=== PATIENT | male | born 1975 | race Caucasian/White ===

== ENCOUNTER 2020-06-01 14:27 | Inpatient (IN) | payer OTHER, SELFPAY ==
[2020-06-01] VITALS (16 sets, daily range): BP systolic 114–140; BP diastolic 43–86; PULSE 117–138; RESP 19–35; TEMP 36.4–38.1; O2SAT 96–100; BMI 39.5
[2020-06-01 16:02] LABS: Hemoglobin 7.1 g/dl (14.0-18.0); Red Cell Distribution Width 18.9 % (11.0-16.0)
[2020-06-01 16:03] LABS: Hematocrit 25.6 % (42-52); Mean Corpuscular HGB Conc 27.7 g/dl (31.0-36.0); Mean Corpuscular Hemoglobin 16.6 pg (27.0-33.0); NRBC Pct Auto 0.6 /100WBC (0.0-0.2); Platelet Count 218 X10*3/uL (160-400); Red Blood Count 4.28 X10*6/uL (4.60-5.80); White Blood Count 6.3 X10*3/uL (4.8-10.8)
[2020-06-01 16:04] LABS: Mean Corpuscular Volume 59.8 fL (80-98); PLT ABN DIST 1
--- NOTE | 2020-06-01 16:06 | CT_ITS ---
EXAMINATION: CT HEAD WITHOUT CONTRAST CLINICAL INFORMATION: Bilateral ear hematoma. COMPARISON: None. TECHNIQUE: Contiguous axial imaging was performed from the skull base to vertex without intravenous contrast. This CT examination was performed using dose optimization techniques as appropriate, variously including the following: * Automated exposure control * Adjustment of mA and/or kV according to patient size (this includes techniques or standardized protocols for targeted exams where dose is matched to indication/reason for exam; i.e. extremities or head) Use of iterative reconstruction technique DLP: 923 mGy-cm. FINDINGS: There is no evidence of acute intracranial hemorrhage or territorial infarction. No abnormal mass effect or midline shift is seen. Michelle to white matter differentiation is well preserved. No extra-axial fluid collections are identified. No hydrocephalus. No significant volume loss. There is no abnormal attenuation within the brain parenchyma. The osseous structures and soft tissues are normal. The middle ear cavities are well-aerated. The external auditory canals are clear. Mucous retention cyst in the left maxillary sinus. The mastoid air cells and visualized portions of the paranasal sinuses are otherwise well aerated. CT/CT head/brain wo con IMPRESSION: No acute intracranial pathology.
[2020-06-01 16:09] LABS: INTERNATIONAL NORM RATIO 1.6 (0.9-1.1); Prothrombin Time 19.5 SEC (10.8-13.0)
[2020-06-01 16:35] LABS: Alanine Aminotransferase < 6 U/L (0-40); Albumin Level 3.3 g/dL (3.5-5.0); Alkaline Phosphatase 78 U/L (39-117); Anion Gap 12 (12-20); Aspartate Amino Transferase 25 U/L (5-37); Bilirubin Direct 0.8 mg/dL (0.0-0.5); Bilirubin Total 1.3 mg/dL (0.0-1.0); Blood Urea Nitrogen 15 mg/dL (9-16); Calcium 8.1 mg/dL (8.4-10.2); Carbon Dioxide 24 mmol/L (22-29); Chloride 100 mmol/L (96-108); Creatinine Clr Calc Pharmacy 136.5; Estimated Glomerular Filt Rate > 60; Glucose Random 108 mg/dL (60-115); Magnesium 1.9 mg/dL (1.6-2.6); Sodium 132 mmol/L (135-145); Total Protein 7.4 g/dL (6.5-8.0)
[2020-06-01 16:38] LABS: Band Neutrophils Percent 0 % (3-5); Eosinophils Absolute Manual 0.1 X10*3/UL (0.0-0.8); Eosinophils Percent Manual 1 % (0-4); Hypochromasia 2+; Lymphocytes Absolute Manual 0.8 X10*3/uL (0.6-4.8); Lymphocytes Percent Manual 12 % (20-40); Microcytosis 3+; Monocytes Absolute Manual 0.2 X10*3/uL (0.0-1.2); Monocytes Percent Manual 3 % (2-11); Neutrophils Absolute Manual 5.3 X10*3/uL (2.2-7.9); Neutrophils Percent Manual 84 % (45-73); RBC Morphology NOTED; Tear Drop Cells 2+
[2020-06-01 16:39] LABS: Ovalocytes 1+; Platelet Estimate NORMAL (NORMAL); Platelet Morphology Comment NOTED; Polychromasia 1+
[2020-06-01 16:40] LABS: Large Platelet PRESENT
[2020-06-01 16:45] LABS: Influenza A PCR NEGATIVE (Negative); Influenza B PCR NEGATIVE (Negative); Resp Syncy Virus RNA Qual PCR NEGATIVE (Negative); SARS COV2 PCR INHOUSE NEGATIVE (Negative)
[2020-06-01 17:01] LABS: Lactic Acid 1.7 mmol/L (0.5-2.0)
[2020-06-01 17:05] LABS: Iron 8 mcg/dL (45-160); Lactate Dehydrogenase 264 U/L (118-273); Percent Iron Saturation 3 % (15-50); Total Iron Binding Capacity 262 mcg/dL (228-428); Unsaturated Iron Binding 254 ug/dL
--- NOTE | 2020-06-01 17:46 | PC.NURSE ---
FIRST UNIT OF BLOOD HUNG. LUNGS CLEAR, SLIGHTLY DIM. PT NAPPING BUT EASILY AROUSED. SLEEP APNEA NOTED.
--- NOTE | 2020-06-01 17:51 | ED_ITS ---
HPI - Ear Problem General Chief complaint: Ear Problems <EROS Salazar Last Filed: 06/01/20 19:40> Stated complaint: ear pain <EROS Salazar Last Filed: 06/01/20 19:40> Time Seen by Provider: 06/01/20 15:36 <EROS Salazar Last Filed: 06/01/20 19:40> Source: patient <EROS Salazar Last Filed: 06/01/20 19:40> Mode of arrival: ambulatory <EROS Salazar Last Filed: 06/01/20 19:40> Limitations: no limitations <EROS Salazar Last Filed: 06/01/20 19:40> History of Present Illness HPI Narrative: 44yoM c PMHx of allergies, HTN who is noncompliant with hypertensive medication has not seen a PCP in over a year presenting to the ED with compl aints of purple coloration to bilateral ears after he was blowing his nose to clear his sinuses 2 days ago. He denies any trauma, head injury, fevers, hearing loss or any other symptoms complaints or concerns at this time. Denies history of hypercoagulation disorder. Denies being and cold temperature with possible frostbite. Patient denies being on any blood thinners. <EROS Salazar Last Filed: 06/01/20 19:40> Related Data Home medications: Home Medications Medication Instructions Recorded Confirmed No Known Home Meds 06/01/20 06/01/20 <EROS Salazar Last Filed: 06/01/20 19:40> Allergies/adverse reactions: Allergies Allergy/AdvReac Type Severity Reaction Status Date / Time No Known Allergies Allergy Verified 06/01/20 15:37 <EROS Salazar Last Filed: 06/01/20 19:40> Review of Systems Review of Systems: Constitutional : No Weight loss, No Fever, No Chills, No Night Sweats, No Fatigue, No Malaise ENT/Mouth : + ear discoloration although patient denies pain, No Hearing loss, No Ear Pain, No Nasal Congestion, No Sinus Pain, No Hoarseness, No sore throat, No Rhinorrhea, No Swallowing Difficulty Eyes: No Eye Pain, No Swelling, No Redness, No Foreign Body, No Discharge, No Vision Changes Cardiovascular : No Chest Pain, No SOB, No Dyspnea on Exertion, No Orthopnea, No Edema, No Palpitations Respiratory : No Cough, No Sputum, No Wheezing, No Smoke Exposure, No Dyspnea Gastrointestinal : No Nausea, No Vomiting, No Diarrhea, No Constipation, No abdominal Pain, No Hematochezia, No Melena Genitourinary : no irregular bleeding, No Dysuria, No Urinary Frequency, No Hematuria, No Urinary Incontinence, No Urgency, No Flank Pain, No Urinary Flow Changes, No Hesitancy Musculoskeletal : No joint pain, No Myalgias, No Joint Swelling Skin : No Skin Lesions, No rash Neuro : No Weakness, No Numbness, No Paresthesias, No Loss of Consciousness, No Dizziness, No Headache Psych : No Anxiety/Panic, No Depression, No SI/HI/AH/VH, No Social Issues, Heme/Lymph: No Bruising, No Bleeding,No Lymphadenopathy Endocrine : No Polyuria, No Polydipsia, No Temperature Intolerance <EROS Salazar - Last Filed: 06/01/20 19:40> Yes all other systems are reviewed and are negative <EROS Salazar - Last Filed: 06/01/20 19:40> [facility] Past Medical History Attestation statement: The following information was validated with the patient. <EROS Salazar - Last Filed: 06/01/20 19:40> Medical History: Medical History Allergies HTN (hypertension) <EROS Salazar - Last Filed: 06/01/20 19:40> Social History Social History: Social History Advance Directives: No Advance Directives Information Provided: No <EROS Salazar - Last Filed: 06/01/20 19:40> Physical Exam Vital Signs: Vital Signs: Last Vital Signs Temp 99.8 F 06/01/20 21:05 Pulse 137 H 06/01/20 22:53 Resp 34 H 06/01/20 23:15 BP 137/69 06/01/20 22:53 Pulse Ox 100 06/01/20 22:53 Body Mass Index 39.5 vital signs have been reviewed as normal and appeared to be correct. Blood pressure normal. Heart rate tachycardic. Respiration rate tachypneic. Temperature normal. Oxygen saturation normal. <EROS Salazar - Last Filed: 06/01/20 19:40> Vital Signs: Last Vital Signs Temp 99.8 F 06/01/20 21:05 Pulse 137 H 06/01/20 22:53 Resp 34 H 06/01/20 23:15 BP 137/69 06/01/20 22:53 Pulse Ox 100 06/01/20 22:53 Body Mass Index 39.5 <Triston Miller MD - Last Filed: 06/01/20 23:32> Appearance: Alert. Oriented X3. No acute distress. Head: Normal external exam. Normocephalic. Atraumatic. Eyes: PERRLA. EOMI. Patient noted to have a small conjunctival hemorrhage to the left eye. Otherwise the right eye conjunctiva and sclera are normal. Sclera to left eye normal. Eyelids normal. ENT: Bilateral lateral aspect of cartilage of ears with purplish color with blisters noted. No purulent drainage. Patient does not have pain on palpation. The ear does not feel hot to touch or cold to touch. Otherwise the EAC is normal. TM's Normal. Pharynx normal. Uvula midline. Moist mucous membranes. No trismus noted. No drooling noted. No muffled voice noted. Neck: Normal inspection. Neck supple. FROM. No adenopathy. No meningeal signs. CVS: Normal heart rate and rhythm. Heart sound normal. No murmurs noted. Pulses normal throughout. Respiratory: No respiratory distress. Painless inspiration. Breath sounds normal. No wheezes/rales/rhonchi noted. Chest nontender. No accessory muscle usage noted or decreased air movement noted. Back: Full range of motion noted. Skin: Skin warm and dry. Normal skin color. Normal skin turgor. No lacerations noted. Extremities: Bilateral toes noted to have purpura. + lower extremity edema. No calf tenderness noted. Extremities exhibit normal range of motion. Extremities nontender. Neuro: Oriented X 3. No motor deficit. No sensory deficit. Reflexes normal. <EROS Salazar - Last Filed: 06/01/20 19:40> Course Course Course Narrative: 15:37pm - 44yoM c PMHx of allergies, HTN who is noncompliant with hypertensive medication has not seen a PCP in over a year presenting to the ED with complaints of purple coloration to bilateral ears after he was blowing his nose to clear his sinuses 2 days ago. - on exam patient has purple list discoloration to bilateral cartilage of ears with blisters. - Plan: Labs, CT scan of brain, blood cultures, lactic acid provide IVFs then re-evaluate <EROS Salazar - Last Filed: 06/01/20 19:40> Reevaluation(s) Reevaluation #1: 16:12pm - patient anemic hemoglobin at 7.1 hematocrit 25.6 MC vis 59.8. - PT/INR 19.5/1.6. - sodium 132. - all other labs within normal limits. - COVID/RSV/flu negative. - CT scan of brain within normal limits no acute processes noted. - therefore I recommended 2 units of red blood cells to the patient and added iron studies - patient signed consent for 2 packs of red blood cells. - I explained to the patient that we should do a stool occult to evaluate if he is bleeding rectally although patient adamantly refused this. - I offered the patient admission for anemia of unknown cause and purplish discoloration to bilateral ear cartilage although patient is adamantly refusing and reporting that he will be leaving after the 2 units of red blood cells. <EROS Salazar - Last Filed: 06/01/20 19:40> Time: 16:12 <EROS Salazar - Last Filed: 06/01/20 19:40> Reevaluation #2: - due to the patient tachycardia and tachypnea will give a dose of IV antibiotics of Rocephin - plan is to discharge patient against medical advice with antibiotics and referral to ENT although we explained to the patient that he can have necrosis of his ear cartilages and he understands and still wants to leave against medi luz elena advice. Anwer at bedside for this conversation. <EROS Salazar - Last Filed: 06/01/20 19:40> Time: 18:35 <EROS Salazar - Last Filed: 06/01/20 19:40> Reevaluation #3: I examined the patient's feet and patient is noted to have purpura on bilateral feet/toes therefore I had another lengthy conversation with the patient about necrosis of his ear cartilages and convince him to stay in the emergency department for further evaluation and treatment and admission for further evaluation and treatment. Consulted with Dr. Smith the vascular surgeon and Dr. Villalobos the heme oncologist will re-evaluate. Sign out to TIFFANIE Liao at this time. <EROS Salazar - Last Filed: 06/01/20 19:40> Time: 19:02 <EROS Salazar - Last Filed: 06/01/20 19:40> Additional Reevaluation(s): 19:25pm - I consulted with Dr. Smith and he recommended a lower extremity ultrasound arterial therefore placed at this time. - I spoke to the hospitalist Umm Daniels NP who recommended obtain a CTA of chest for possible PE and a CT of abdomen and pelvis with IV contrast to evaluate the patient's spleen. Patient understands agrees with this plan. - Pt reports he does not do any street drugs which include Heroin, cocaine or any other street drugs although reports he does sell cocaine . Denies ETOH usage. - Sign Out to TIFFANIE Liao pending additional abs and imaging and admission <EROS Salazar - Last Filed: 06/01/20 19:40> MDM - Ear MDM Narrative Medical decision making narrative: Patient with history of sleep apnea not using the CPAP machine poor compliance for follow-up and treatment came here after blowing his nose with hematoma on the bilateral ear pinna. Urine tox showed cocaine use which patient denied. Workup showed patient is severely anemic with hemoglobin of 7 0.1 MCV of 59.8 platelet count 218 suggestive of severe iron deficiency anemia hematoma on the ear pinna happened 2 days ago needle aspiration drained only small amount of blood. Workup also showed splenomegaly and lymph nodes in the abdomen. Case discussed with painter decorator Dr. Villalobos advise further workup patient received 2 units of blood transfusion in the ER and iron infusion placed on BiPAP in the ER ABG showed normal pCO2 level metabolic alkalosis will admit patient to hospitalist service <Triston Miller MD - Last Filed: 06/01/20 23:32> Medical Records Attestation: I reviewed the patient's medical records. <EROS Salazar - Last Filed: 06/01/20 19:40> Lab Data Attestation: I reviewed the patient's lab results. <EROS Salazar - Last Filed: 06/01/20 19:40> Result diagrams: : 06/01/20 15:48 06/01/20 15:49 <EROS Salazar - Last Filed: 06/01/20 19:40> Labs: Lab Results 06/01/20 06/01/20 06/01/20 Range/Units 15:48 15:48 15:48 WBC 6.3 (4.8-10.8) X10*3/uL RBC 4.28 L (4.60-5.80) X10*6/uL Hgb 7.1 L (14.0-18.0) g/dl Hct 25.6 L (42-52) % MCV 59.8 L (80-98) fL MCH 16.6 L (27.0-33.0) pg MCHC 27.7 L (31.0-36.0) g/dl RDW 18.9 H (11.0-16.0) % Plt Count 218 (160-400) X10*3/uL MPV Not Reportable Immature Gran % (Auto) Cancelled Neut % (Auto) Cancelled Lymph % (Auto) Cancelled [place] % (Auto) Cancelled Eos % (Auto) Cancelled Baso % (Auto) Cancelled Lymph # (Auto) Cancelled [place] # (Auto) Cancelled Eos # (Auto) Cancelled Baso # (Auto) Cancelled Abs Immat Gran (auto) Cancelled Absolute Neuts (auto) Cancelled Absolute Nucleated RBC 0.040 H (0.0-0.012) X10*3/uL Nucleated RBC % (auto) 0.6 H (0.0-0.2) /100WBC Neutrophils % (Manual) 84 H (45-73) % Band Neutrophils % 0 L (3-5) % Lymphocytes % (Manual) 12 L (20-40) % Monocytes % (Manual) 3 (2-11) % Eosinophils % (Manual) 1 (0-4) % Abs Neuts (Manual) 5.3 (2.2-7.9) X10*3/uL Lymphocytes # (Manual) 0.8 (0.6-4.8) X10*3/uL Monocytes # (Manual) 0.2 (0.0-1.2) X10*3/uL Eosinophils # (Manual) 0.1 (0.0-0.8) X10*3/UL Platelet Estimate NORMAL (NORMAL) Large Platelets PRESENT Plt Morphology Comment NOTED RBC Morphology NOTED Polychromasia 1+ Hypochromasia 2+ Microcytosis 3+ Tear Drop Cells 2+ Ovalocytes 1+ Absolute Retic (0.026-0.095) X10*6/uL Percent Retic (0.5-1.8) % Immature Retic Fraction (2.3-13.4) % Retic Hgb Equivalent (30.0-35.0) pg Hold Purple Top SEE NOTE PT 19.5 H (10.8-13.0) SEC INR 1.6 H (0.9-1.1) APTT (24.1-38.0) SEC Fibrinogen (259-690) MG/DL D-Dimer NG/ML ABG pH (7.35-7.45) ABG pCO2 (32-45) mmHg ABG pO2 (83-108) mmHg ABG HCO3 (22-26) mmol/L ABG O2 Saturation % ABG Base Excess Oxygen Given Sodium (135-145) mmol/L Potassium (3.3-5.1) mmol/l Chloride (96-108) mmol/L Carbon Dioxide (22-29) mmol/L Anion Gap (12-20) BUN (9-16) mg/dL Creatinine (0.5-1.4) mg/dL Estim Creat Clear Calc Estimated GFR Random Glucose (60-115) mg/dL Lactic Acid (0.5-2.0) mmol/L Calcium (8.4-10.2) mg/dL Magnesium (1.6-2.6) mg/dL Iron (45-160) mcg/dL TIBC (228-428) mcg/dL % Saturation (15-50) % Unsat Iron Binding ug/dL Total Bilirubin (0.0-1.0) mg/dL Direct Bilirubin (0.0-0.5) mg/dL AST (5-37) U/L ALT (0-40) U/L Alkaline Phosphatase (39-117) U/L Lactate Dehydrogenase (118-273) U/L Troponin I High Sens (<3.5-35.0) ng/L B-Natriuretic Peptide (<100) pg/mL Total Protein (6.5-8.0) g/dL Albumin (3.5-5.0) g/dL Urine Color Urine Appearance Urine pH (5.0-8.0) Ur Specific Golden (1.005-1.025) Urine Protein (NEG-TRACE) MG/DL Urine Glucose (UA) (NEG) MG/DL Urine Ketones (NEG) MG/DL Urine Blood (NEG) Urine Nitrite (NEG) Ur Leukocyte Esterase (NEG) Urine RBC (0) /HPF Urine WBC (0-4) /HPF Ur Squamous Epith Cells /LPF Urine Bacteria /LPF Urine Opiates Screen (Not Detect) Ur Barbiturates Screen (Not Detect) Ur Phencyclidine Scrn (Not Detect) Ur Amphetamines Screen (Not Detect) U Benzodiazepines Scrn (Not Detect) Urine Cocaine Screen (Not Detect) U Marijuana (THC) Screen (Not Detect) Ethyl Alcohol mg/dL Coronavirus (PCR) (Negative) Influenza Type A (PCR) (Negative) Influenza Type B (PCR) (Negative) RSV RNA Qual (PCR) (Negative) Blood Type Antibody Screen Crossmatch 06/01/20 06/01/20 06/01/20 Range/Units 15:49 15:50 16:24 WBC (4.8-10.8) X10*3/uL RBC (4.60-5.80) X10*6/uL Hgb (14.0-18.0) g/dl Hct (42-52) % MCV (80-98) fL MCH (27.0-33.0) pg MCHC (31.0-36.0) g/dl RDW (11.0-16.0) % Plt Count (160-400) X10*3/uL MPV Immature Gran % (Auto) Neut % (Auto) Lymph % (Auto) [place] % (Auto) Eos % (Auto) Baso % (Auto) Lymph # (Auto) [place] # (Auto) Eos # (Auto) Baso # (Auto) Abs Immat Gran (auto) Absolute Neuts (auto) Absolute Nucleated RBC (0.0-0.012) X10*3/uL Nucleated RBC % (auto) (0.0-0.2) /100WBC Neutrophils % (Manual) (45-73) % Band Neutrophils % (3-5) % Lymphocytes % (Manual) (20-40) % Monocytes % (Manual) (2-11) % Eosinophils % (Manual) (0-4) % Abs Neuts (Manual) (2.2-7.9) X10*3/uL Lymphocytes # (Manual) (0.6-4.8) X10*3/uL Monocytes # (Manual) (0.0-1.2) X10*3/uL Eosinophils # (Manual) (0.0-0.8) X10*3/UL Platelet Estimate (NORMAL) Large Platelets Plt Morphology Comment RBC Morphology Polychromasia Hypochromasia Microcytosis Tear Drop Cells Ovalocytes Absolute Retic (0.026-0.095) X10*6/uL Percent Retic (0.5-1.8) % Immature Retic Fraction (2.3-13.4) % Retic Hgb Equivalent (30.0-35.0) pg Hold Purple Top PT (10.8-13.0) SEC INR (0.9-1.1) APTT (24.1-38.0) SEC Fibrinogen (259-690) MG/DL D-Dimer NG/ML ABG pH (7.35-7.45) ABG pCO2 (32-45) mmHg ABG pO2 (83-108) mmHg ABG HCO3 (22-26) mmol/L ABG O2 Saturation % ABG Base Excess Oxygen Given Sodium 132 L (135-145) mmol/L Potassium 4.0 (3.3-5.1) mmol/l Chloride 100 (96-108) mmol/L Carbon Dioxide 24 (22-29) mmol/L Anion Gap 12 (12-20) BUN 15 (9-16) mg/dL Creatinine 1.01 (0.5-1.4) mg/dL Estim Creat Clear Calc 136.5 Estimated GFR > 60 Random Glucose 108 (60-115) mg/dL Lactic Acid (0.5-2.0) mmol/L Calcium 8.1 L (8.4-10.2) mg/dL Magnesium 1.9 (1.6-2.6) mg/dL Iron (45-160) mcg/dL TIBC (228-428) mcg/dL % Saturation (15-50) % Unsat Iron Binding ug/dL Total Bilirubin 1.3 H (0.0-1.0) mg/dL Direct Bilirubin 0.8 H (0.0-0.5) mg/dL AST 25 (5-37) U/L ALT < 6 (0-40) U/L Alkaline Phosphatase 78 (39-117) U/L Lactate Dehydrogenase (118-273) U/L Troponin I High Sens (<3.5-35.0) ng/L B-Natriuretic Peptide (<100) pg/mL Total Protein 7.4 (6.5-8.0) g/dL Albumin 3.3 L (3.5-5.0) g/dL Urine Color Urine Appearance Urine pH (5.0-8.0) Ur Specific Golden (1.005-1.025) Urine Protein (NEG-TRACE) MG/DL Urine Glucose (UA) (NEG) MG/DL Urine Ketones (NEG) MG/DL Urine Blood (NEG) Urine Nitrite (NEG) Ur Leukocyte Esterase (NEG) Urine RBC (0) /HPF Urine WBC (0-4) /HPF Ur Squamous Epith Cells /LPF Urine Bacteria /LPF Urine Opiates Screen (Not Detect) Ur Barbiturates Screen (Not Detect) Ur Phencyclidine Scrn (Not Detect) Ur Amphetamines Screen (Not Detect) U Benzodiazepines Scrn (Not Detect) Urine Cocaine Screen (Not Detect) U Marijuana (THC) Screen (Not Detect) Ethyl Alcohol mg/dL Coronavirus (PCR) NEGATIVE (Negative) Influenza Type A (PCR) NEGATIVE (Negative) Influenza Type B (PCR) NEGATIVE (Negative) RSV RNA Qual (PCR) NEGATIVE (Negative) Blood Type O Negative Antibody Screen NEGATIVE Crossmatch See Detail 06/01/20 06/01/20 06/01/20 Range/Units 16:25 16:26 19:55 WBC (4.8-10.8) X10*3/uL RBC (4.60-5.80) X10*6/uL Hgb (14.0-18.0) g/dl Hct (42-52) % MCV (80-98) fL MCH (27.0-33.0) pg MCHC (31.0-36.0) g/dl RDW (11.0-16.0) % Plt Count (160-400) X10*3/uL MPV Immature Gran % (Auto) Neut % (Auto) Lymph % (Auto) [place] % (Auto) Eos % (Auto) Baso % (Auto) Lymph # (Auto) [place] # (Auto) Eos # (Auto) Baso # (Auto) Abs Immat Gran (auto) Absolute Neuts (auto) Absolute Nucleated RBC (0.0-0.012) X10*3/uL Nucleated RBC % (auto) (0.0-0.2) /100WBC Neutrophils % (Manual) (45-73) % Band Neutrophils % (3-5) % Lymphocytes % (Manual) (20-40) % Monocytes % (Manual) (2-11) % Eosinophils % (Manual) (0-4) % Abs Neuts (Manual) (2.2-7.9) X10*3/uL Lymphocytes # (Manual) (0.6-4.8) X10*3/uL Monocytes # (Manual) (0.0-1.2) X10*3/uL Eosinophils # (Manual) (0.0-0.8) X10*3/UL Platelet Estimate (NORMAL) Large Platelets Plt Morphology Comment RBC Morphology Polychromasia Hypochromasia Microcytosis Tear Drop Cells Ovalocytes Absolute Retic (0.026-0.095) X10*6/uL Percent Retic (0.5-1.8) % Immature Retic Fraction (2.3-13.4) % Retic Hgb Equivalent (30.0-35.0) pg Hold Purple Top PT (10.8-13.0) SEC INR (0.9-1.1) APTT (24.1-38.0) SEC Fibrinogen (259-690) MG/DL D-Dimer NG/ML ABG pH (7.35-7.45) ABG pCO2 (32-45) mmHg ABG pO2 (83-108) mmHg ABG HCO3 (22-26) mmol/L ABG O2 Saturation % ABG Base Excess Oxygen Given Sodium (135-145) mmol/L Potassium (3.3-5.1) mmol/l Chloride (96-108) mmol/L Carbon Dioxide (22-29) mmol/L Anion Gap (12-20) BUN (9-16) mg/dL Creatinine (0.5-1.4) mg/dL Estim Creat Clear Calc Estimated GFR Random Glucose (60-115) mg/dL Lactic Acid 1.7 (0.5-2.0) mmol/L Calcium (8.4-10.2) mg/dL Magnesium (1.6-2.6) mg/dL Iron 8 L (45-160) mcg/dL TIBC 262 (228-428) mcg/dL % Saturation 3 L (15-50) % Unsat Iron Binding 254 ug/dL Total Bilirubin (0.0-1.0) mg/dL Direct Bilirubin (0.0-0.5) mg/dL AST (5-37) U/L ALT (0-40) U/L Alkaline Phosphatase (39-117) U/L Lactate Dehydrogenase 264 (118-273) U/L Troponin I High Sens (<3.5-35.0) ng/L B-Natriuretic Peptide (<100) pg/mL Total Protein (6.5-8.0) g/dL Albumin (3.5-5.0) g/dL Urine Color YELLOW Urine Appearance CLEAR Urine pH 6.0 (5.0-8.0) Ur Specific [place] 1.020 (1.005-1.025) Urine Protein TRACE (NEG-TRACE) MG/DL Urine Glucose (UA) NEG (NEG) MG/DL Urine Ketones NEG (NEG) MG/DL Urine Blood 1+ H (NEG) Urine Nitrite NEG (NEG) Ur Leukocyte Esterase NEG (NEG) Urine RBC 5-9 H (0) /HPF Urine WBC 0 (0-4) /HPF Ur Squamous Epith Cells 1+ /LPF Urine Bacteria NONE /LPF Urine Opiates Screen (Not Detect) Ur Barbiturates Screen (Not Detect) Ur Phencyclidine Scrn (Not Detect) Ur Amphetamines Screen (Not Detect) U Benzodiazepines Scrn (Not Detect) Urine Cocaine Screen (Not Detect) U Marijuana (THC) Screen (Not Detect) Ethyl Alcohol mg/dL Coronavirus (PCR) (Negative) Influenza Type A (PCR) (Negative) Influenza Type B (PCR) (Negative) RSV RNA Qual (PCR) (Negative) Blood Type Antibody Screen Crossmatch 06/01/20 06/01/20 06/01/20 Range/Units 19:55 20:23 20:23 WBC (4.8-10.8) X10*3/uL RBC (4.60-5.80) X10*6/uL Hgb (14.0-18.0) g/dl Hct (42-52) % MCV (80-98) fL MCH (27.0-33.0) pg MCHC (31.0-36.0) g/dl RDW (11.0-16.0) % Plt Count (160-400) X10*3/uL MPV Immature Gran % (Auto) Neut % (Auto) Lymph % (Auto) [place] % (Auto) Eos % (Auto) Baso % (Auto) Lymph # (Auto) [place] # (Auto) Eos # (Auto) Baso # (Auto) Abs Immat Gran (auto) Absolute Neuts (auto) Absolute Nucleated RBC (0.0-0.012) X10*3/uL Nucleated RBC % (auto) (0.0-0.2) /100WBC Neutrophils % (Manual) (45-73) % Band Neutrophils % (3-5) % Lymphocytes % (Manual) (20-40) % Monocytes % (Manual) (2-11) % Eosinophils % (Manual) (0-4) % Abs Neuts (Manual) (2.2-7.9) X10*3/uL Lymphocytes # (Manual) (0.6-4.8) X10*3/uL Monocytes # (Manual) (0.0-1.2) X10*3/uL Eosinophils # (Manual) (0.0-0.8) X10*3/UL Platelet Estimate (NORMAL) Large Platelets Plt Morphology Comment RBC Morphology Polychromasia Hypochromasia Microcytosis Tear Drop Cells Ovalocytes Absolute Retic (0.026-0.095) X10*6/uL Percent Retic (0.5-1.8) % Immature Retic Fraction (2.3-13.4) % Retic Hgb Equivalent (30.0-35.0) pg Hold Purple Top PT (10.8-13.0) SEC INR (0.9-1.1) APTT 61.1 H* (24.1-38.0) SEC Fibrinogen > 700 H (259-690) MG/DL D-Dimer 3841 NG/ML ABG pH (7.35-7.45) ABG pCO2 (32-45) mmHg ABG pO2 (83-108) mmHg ABG HCO3 (22-26) mmol/L ABG O2 Saturation % ABG Base Excess Oxygen Given Sodium (135-145) mmol/L Potassium (3.3-5.1) mmol/l Chloride (96-108) mmol/L Carbon Dioxide (22-29) mmol/L Anion Gap (12-20) BUN (9-16) mg/dL Creatinine (0.5-1.4) mg/dL Estim Creat Clear Calc Estimated GFR Random Glucose (60-115) mg/dL Lactic Acid (0.5-2.0) mmol/L Calcium (8.4-10.2) mg/dL Magnesium (1.6-2.6) mg/dL Iron (45-160) mcg/dL TIBC (228-428) mcg/dL % Saturation (15-50) % Unsat Iron Binding ug/dL Total Bilirubin (0.0-1.0) mg/dL Direct Bilirubin (0.0-0.5) mg/dL AST (5-37) U/L ALT (0-40) U/L Alkaline Phosphatase (39-117) U/L Lactate Dehydrogenase (118-273) U/L Troponin I High Sens (<3.5-35.0) ng/L B-Natriuretic Peptide 56 (<100) pg/mL Total Protein (6.5-8.0) g/dL Albumin (3.5-5.0) g/dL Urine Color Urine Appearance Urine pH (5.0-8.0) Ur Specific [place] (1.005-1.025) Urine Protein (NEG-TRACE) MG/DL Urine Glucose (UA) (NEG) MG/DL Urine Ketones (NEG) MG/DL Urine Blood (NEG) Urine Nitrite (NEG) Ur Leukocyte Esterase (NEG) Urine RBC (0) /HPF Urine WBC (0-4) /HPF Ur Squamous Epith Cells /LPF Urine Bacteria /LPF Urine Opiates Screen Not Detected (Not Detect) Ur Barbiturates Screen Not Detected (Not Detect) Ur Phencyclidine Scrn Not Detected (Not Detect) Ur Amphetamines Screen Not Detected (Not Detect) U Benzodiazepines Scrn Not Detected (Not Detect) Urine Cocaine Screen POSITIVE H (Not Detect) U Marijuana (THC) Screen Not Detected (Not Detect) Ethyl Alcohol mg/dL Coronavirus (PCR) (Negative) Influenza Type A (PCR) (Negative) Influenza Type B (PCR) (Negative) RSV RNA Qual (PCR) (Negative) Blood Type Antibody Screen Crossmatch 06/01/20 06/01/20 06/01/20 Range/Units 20:23 20:23 20:23 WBC (4.8-10.8) X10*3/uL RBC (4.60-5.80) X10*6/uL Hgb (14.0-18.0) g/dl Hct (42-52) % MCV (80-98) fL MCH (27.0-33.0) pg MCHC (31.0-36.0) g/dl RDW (11.0-16.0) % Plt Count (160-400) X10*3/uL MPV Immature Gran % (Auto) Neut % (Auto) Lymph % (Auto) [place] % (Auto) Eos % (Auto) Baso % (Auto) Lymph # (Auto) [place] # (Auto) Eos # (Auto) Baso # (Auto) Abs Immat Gran (auto) Absolute Neuts (auto) Absolute Nucleated RBC (0.0-0.012) X10*3/uL Nucleated RBC % (auto) (0.0-0.2) /100WBC Neutrophils % (Manual) (45-73) % Band Neutrophils % (3-5) % Lymphocytes % (Manual) (20-40) % Monocytes % (Manual) (2-11) % Eosinophils % (Manual) (0-4) % Abs Neuts (Manual) (2.2-7.9) X10*3/uL Lymphocytes # (Manual) (0.6-4.8) X10*3/uL Monocytes # (Manual) (0.0-1.2) X10*3/uL Eosinophils # (Manual) (0.0-0.8) X10*3/UL Platelet Estimate (NORMAL) Large Platelets Plt Morphology Comment RBC Morphology Polychromasia Hypochromasia Microcytosis Tear Drop Cells Ovalocytes Absolute Retic 0.043 (0.026-0.095) X10*6/uL Percent Retic 0.9 (0.5-1.8) % Immature Retic Fraction 17.2 H (2.3-13.4) % Retic Hgb Equivalent 14.7 L (30.0-35.0) pg Hold Purple Top PT (10.8-13.0) SEC INR (0.9-1.1) APTT (24.1-38.0) SEC Fibrinogen (259-690) MG/DL D-Dimer NG/ML ABG pH (7.35-7.45) ABG pCO2 (32-45) mmHg ABG pO2 (83-108) mmHg ABG HCO3 (22-26) mmol/L ABG O2 Saturation % ABG Base Excess Oxygen Given Sodium (135-145) mmol/L Potassium (3.3-5.1) mmol/l Chloride (96-108) mmol/L Carbon Dioxide (22-29) mmol/L Anion Gap (12-20) BUN (9-16) mg/dL Creatinine (0.5-1.4) mg/dL Estim Creat Clear Calc Estimated GFR Random Glucose (60-115) mg/dL Lactic Acid (0.5-2.0) mmol/L Calcium (8.4-10.2) mg/dL Magnesium (1.6-2.6) mg/dL Iron (45-160) mcg/dL TIBC (228-428) mcg/dL % Saturation (15-50) % Unsat Iron Binding ug/dL Total Bilirubin (0.0-1.0) mg/dL Direct Bilirubin (0.0-0.5) mg/dL AST (5-37) U/L ALT (0-40) U/L Alkaline Phosphatase (39-117) U/L Lactate Dehydrogenase (118-273) U/L Troponin I High Sens 7.4 (<3.5-35.0) ng/L B-Natriuretic Peptide (<100) pg/mL Total Protein (6.5-8.0) g/dL Albumin (3.5-5.0) g/dL Urine Color Urine Appearance Urine pH (5.0-8.0) Ur Specific [place] (1.005-1.025) Urine Protein (NEG-TRACE) MG/DL Urine Glucose (UA) (NEG) MG/DL Urine Ketones (NEG) MG/DL Urine Blood (NEG) Urine Nitrite (NEG) Ur Leukocyte Esterase (NEG) Urine RBC (0) /HPF Urine WBC (0-4) /HPF Ur Squamous Epith Cells /LPF Urine Bacteria /LPF Urine Opiates Screen (Not Detect) Ur Barbiturates Screen (Not Detect) Ur Phencyclidine Scrn (Not Detect) Ur Amphetamines Screen (Not Detect) U Benzodiazepines Scrn (Not Detect) Urine Cocaine Screen (Not Detect) U Marijuana (THC) Screen (Not Detect) Ethyl Alcohol < 10 mg/dL Coronavirus (PCR) (Negative) Influenza Type A (PCR) (Negative) Influenza Type B (PCR) (Negative) RSV RNA Qual (PCR) (Negative) Blood Type Antibody Screen Crossmatch 06/01/20 Range/Units 23:11 WBC (4.8-10.8) X10*3/uL RBC (4.60-5.80) X10*6/uL Hgb (14.0-18.0) g/dl Hct (42-52) % MCV (80-98) fL MCH (27.0-33.0) pg MCHC (31.0-36.0) g/dl RDW (11.0-16.0) % Plt Count (160-400) X10*3/uL MPV Immature Gran % (Auto) Neut % (Auto) Lymph % (Auto) [place] % (Auto) Eos % (Auto) Baso % (Auto) Lymph # (Auto) [place] # (Auto) Eos # (Auto) Baso # (Auto) Abs Immat Gran (auto) Absolute Neuts (auto) Absolute Nucleated RBC (0.0-0.012) X10*3/uL Nucleated RBC % (auto) (0.0-0.2) /100WBC Neutrophils % (Manual) (45-73) % Band Neutrophils % (3-5) % Lymphocytes % (Manual) (20-40) % Monocytes % (Manual) (2-11) % Eosinophils % (Manual) (0-4) % Abs Neuts (Manual) (2.2-7.9) X10*3/uL Lymphocytes # (Manual) (0.6-4.8) X10*3/uL Monocytes # (Manual) (0.0-1.2) X10*3/uL Eosinophils # (Manual) (0.0-0.8) X10*3/UL Platelet Estimate (NORMAL) Large Platelets Plt Morphology Comment RBC Morphology Polychromasia Hypochromasia Microcytosis Tear Drop Cells Ovalocytes Absolute Retic (0.026-0.095) X10*6/uL Percent Retic (0.5-1.8) % Immature Retic Fraction (2.3-13.4) % Retic Hgb Equivalent (30.0-35.0) pg Hold Purple Top PT (10.8-13.0) SEC INR (0.9-1.1) APTT (24.1-38.0) SEC Fibrinogen (259-690) MG/DL D-Dimer NG/ML ABG pH 7.46 H (7.35-7.45) ABG pCO2 34 (32-45) mmHg ABG pO2 144 H (83-108) mmHg ABG HCO3 24 (22-26) mmol/L ABG O2 Saturation 99.0 % ABG Base Excess 1.3 Oxygen Given 30% Sodium (135-145) mmol/L Potassium (3.3-5.1) mmol/l Chloride (96-108) mmol/L Carbon Dioxide (22-29) mmol/L Anion Gap (12-20) BUN (9-16) mg/dL Creatinine (0.5-1.4) mg/dL Estim Creat Clear Calc Estimated GFR Random Glucose (60-115) mg/dL Lactic Acid (0.5-2.0) mmol/L Calcium (8.4-10.2) mg/dL Magnesium (1.6-2.6) mg/dL Iron (45-160) mcg/dL TIBC (228-428) mcg/dL % Saturation (15-50) % Unsat Iron Binding ug/dL Total Bilirubin (0.0-1.0) mg/dL Direct Bilirubin (0.0-0.5) mg/dL AST (5-37) U/L ALT (0-40) U/L Alkaline Phosphatase (39-117) U/L Lactate Dehydrogenase (118-273) U/L Troponin I High Sens (<3.5-35.0) ng/L B-Natriuretic Peptide (<100) pg/mL Total Protein (6.5-8.0) g/dL Albumin (3.5-5.0) g/dL Urine Color Urine Appearance Urine pH (5.0-8.0) Ur Specific [place] (1.005-1.025) Urine Protein (NEG-TRACE) MG/DL Urine Glucose (UA) (NEG) MG/DL Urine Ketones (NEG) MG/DL Urine Blood (NEG) Urine Nitrite (NEG) Ur Leukocyte Esterase (NEG) Urine RBC (0) /HPF Urine WBC (0-4) /HPF Ur Squamous Epith Cells /LPF Urine Bacteria /LPF Urine Opiates Screen (Not Detect) Ur Barbiturates Screen (Not Detect) Ur Phencyclidine Scrn (Not Detect) Ur Amphetamines Screen (Not Detect) U Benzodiazepines Scrn (Not Detect) Urine Cocaine Screen (Not Detect) U Marijuana (THC) Screen (Not Detect) Ethyl Alcohol mg/dL Coronavirus (PCR) (Negative) Influenza Type A (PCR) (Negative) Influenza Type B (PCR) (Negative) RSV RNA Qual (PCR) (Negative) Blood Type Antibody Screen Crossmatch <EROS Salazar - Last Filed: 06/01/20 19:40> Lab Results 06/01/20 06/01/20 06/01/20 Range/Units 15:48 15:48 15:48 WBC 6.3 (4.8-10.8) X10*3/uL RBC 4.28 L (4.60-5.80) X10*6/uL Hgb 7.1 L (14.0-18.0) g/dl Hct 25.6 L (42-52) % MCV 59.8 L (80-98) fL MCH 16.6 L (27.0-33.0) pg MCHC 27.7 L (31.0-36.0) g/dl RDW 18.9 H (11.0-16.0) % Plt Count 218 (160-400) X10*3/uL MPV Not Reportable Immature Gran % (Auto) Cancelled Neut % (Auto) Cancelled Lymph % (Auto) Cancelled [place] % (Auto) Cancelled Eos % (Auto) Cancelled Baso % (Auto) Cancelled Lymph # (Auto) Cancelled [place] # (Auto) Cancelled Eos # (Auto) Cancelled Baso # (Auto) Cancelled Abs Immat Gran (auto) Cancelled Absolute Neuts (auto) Cancelled Absolute Nucleated RBC 0.040 H (0.0-0.012) X10*3/uL Nucleated RBC % (auto) 0.6 H (0.0-0.2) /100WBC Neutrophils % (Manual) 84 H (45-73) % Band Neutrophils % 0 L (3-5) % Lymphocytes % (Manual) 12 L (20-40) % Monocytes % (Manual) 3 (2-11) % Eosinophils % (Manual) 1 (0-4) % Abs Neuts (Manual) 5.3 (2.2-7.9) X10*3/uL Lymphocytes # (Manual) 0.8 (0.6-4.8) X10*3/uL Monocytes # (Manual) 0.2 (0.0-1.2) X10*3/uL Eosinophils # (Manual) 0.1 (0.0-0.8) X10*3/UL Platelet Estimate NORMAL (NORMAL) Large Platelets PRESENT Plt Morphology Comment NOTED RBC Morphology NOTED Polychromasia 1+ Hypochromasia 2+ Microcytosis 3+ Tear Drop Cells 2+ Ovalocytes 1+ Absolute Retic (0.026-0.095) X10*6/uL Percent Retic (0.5-1.8) % Immature Retic Fraction (2.3-13.4) % Retic Hgb Equivalent (30.0-35.0) pg Hold Purple Top SEE NOTE PT 19.5 H (10.8-13.0) SEC INR 1.6 H (0.9-1.1) APTT (24.1-38.0) SEC Fibrinogen (259-690) MG/DL D-Dimer NG/ML ABG pH (7.35-7.45) ABG pCO2 (32-45) mmHg ABG pO2 (83-108) mmHg ABG HCO3 (22-26) mmol/L ABG O2 Saturation % ABG Base Excess Oxygen Given Sodium (135-145) mmol/L Potassium (3.3-5.1) mmol/l Chloride (96-108) mmol/L Carbon Dioxide (22-29) mmol/L Anion Gap (12-20) BUN (9-16) mg/dL Creatinine (0.5-1.4) mg/dL Estim Creat Clear Calc Estimated GFR Random Glucose (60-115) mg/dL Lactic Acid (0.5-2.0) mmol/L Calcium (8.4-10.2) mg/dL Magnesium (1.6-2.6) mg/dL Iron (45-160) mcg/dL TIBC (228-428) mcg/dL % Saturation (15-50) % Unsat Iron Binding ug/dL Total Bilirubin (0.0-1.0) mg/dL Direct Bilirubin (0.0-0.5) mg/dL AST (5-37) U/L ALT (0-40) U/L Alkaline Phosphatase (39-117) U/L Lactate Dehydrogenase (118-273) U/L Troponin I High Sens (<3.5-35.0) ng/L B-Natriuretic Peptide (<100) pg/mL Total Protein (6.5-8.0) g/dL Albumin (3.5-5.0) g/dL Urine Color Urine Appearance Urine pH (5.0-8.0) Ur Specific [place] (1.005-1.025) Urine Protein (NEG-TRACE) MG/DL Urine Glucose (UA) (NEG) MG/DL Urine Ketones (NEG) MG/DL Urine Blood (NEG) Urine Nitrite (NEG) Ur Leukocyte Esterase (NEG) Urine RBC (0) /HPF Urine WBC (0-4) /HPF Ur Squamous Epith Cells /LPF Urine Bacteria /LPF Urine Opiates Screen (Not Detect) Ur Barbiturates Screen (Not Detect) Ur Phencyclidine Scrn (Not Detect) Ur Amphetamines Screen (Not Detect) U Benzodiazepines Scrn (Not Detect) Urine Cocaine Screen (Not Detect) U Marijuana (THC) Screen (Not Detect) Ethyl Alcohol mg/dL Coronavirus (PCR) (Negative) Influenza Type A (PCR) (Negative) Influenza Type B (PCR) (Negative) RSV RNA Qual (PCR) (Negative) Blood Type Antibody Screen Crossmatch 06/01/20 06/01/20 06/01/20 Range/Units 15:49 15:50 16:24 WBC (4.8-10.8) X10*3/uL RBC (4.60-5.80) X10*6/uL Hgb (14.0-18.0) g/dl Hct (42-52) % MCV (80-98) fL MCH (27.0-33.0) pg MCHC (31.0-36.0) g/dl RDW (11.0-16.0) % Plt Count (160-400) X10*3/uL MPV Immature Gran % (Auto) Neut % (Auto) Lymph % (Auto) [place] % (Auto) Eos % (Auto) Baso % (Auto) Lymph # (Auto) [place] # (Auto) Eos # (Auto) Baso # (Auto) Abs Immat Gran (auto) Absolute Neuts (auto) Absolute Nucleated RBC (0.0-0.012) X10*3/uL Nucleated RBC % (auto) (0.0-0.2) /100WBC Neutrophils % (Manual) (45-73) % Band Neutrophils % (3-5) % Lymphocytes % (Manual) (20-40) % Monocytes % (Manual) (2-11) % Eosinophils % (Manual) (0-4) % Abs Neuts (Manual) (2.2-7.9) X10*3/uL Lymphocytes # (Manual) (0.6-4.8) X10*3/uL Monocytes # (Manual) (0.0-1.2) X10*3/uL Eosinophils # (Manual) (0.0-0.8) X10*3/UL Platelet Estimate (NORMAL) Large Platelets Plt Morphology Comment RBC Morphology Polychromasia Hypochromasia Microcytosis Tear Drop Cells Ovalocytes Absolute Retic (0.026-0.095) X10*6/uL Percent Retic (0.5-1.8) % Immature Retic Fraction (2.3-13.4) % Retic Hgb Equivalent (30.0-35.0) pg Hold Purple Top PT (10.8-13.0) SEC INR (0.9-1.1) APTT (24.1-38.0) SEC Fibrinogen (259-690) MG/DL D-Dimer NG/ML ABG pH (7.35-7.45) ABG pCO2 (32-45) mmHg ABG pO2 (83-108) mmHg ABG HCO3 (22-26) mmol/L ABG O2 Saturation % ABG Base Excess Oxygen Given Sodium 132 L (135-145) mmol/L Potassium 4.0 (3.3-5.1) mmol/l Chloride 100 (96-108) mmol/L Carbon Dioxide 24 (22-29) mmol/L Anion Gap 12 (12-20) BUN 15 (9-16) mg/dL Creatinine 1.01 (0.5-1.4) mg/dL Estim Creat Clear Calc 136.5 Estimated GFR > 60 Random Glucose 108 (60-115) mg/dL Lactic Acid (0.5-2.0) mmol/L Calcium 8.1 L (8.4-10.2) mg/dL Magnesium 1.9 (1.6-2.6) mg/dL Iron (45-160) mcg/dL TIBC (228-428) mcg/dL % Saturation (15-50) % Unsat Iron Binding ug/dL Total Bilirubin 1.3 H (0.0-1.0) mg/dL Direct Bilirubin 0.8 H (0.0-0.5) mg/dL AST 25 (5-37) U/L ALT < 6 (0-40) U/L Alkaline Phosphatase 78 (39-117) U/L Lactate Dehydrogenase (118-273) U/L Troponin I High Sens (<3.5-35.0) ng/L B-Natriuretic Peptide (<100) pg/mL Total Protein 7.4 (6.5-8.0) g/dL Albumin 3.3 L (3.5-5.0) g/dL Urine Color Urine Appearance Urine pH (5.0-8.0) Ur Specific [place] (1.005-1.025) Urine Protein (NEG-TRACE) MG/DL Urine Glucose (UA) (NEG) MG/DL Urine Ketones (NEG) MG/DL Urine Blood (NEG) Urine Nitrite (NEG) Ur Leukocyte Esterase (NEG) Urine RBC (0) /HPF Urine WBC (0-4) /HPF Ur Squamous Epith Cells /LPF Urine Bacteria /LPF Urine Opiates Screen (Not Detect) Ur Barbiturates Screen (Not Detect) Ur Phencyclidine Scrn (Not Detect) Ur Amphetamines Screen (Not Detect) U Benzodiazepines Scrn (Not Detect) Urine Cocaine Screen (Not Detect) U Marijuana (THC) Screen (Not Detect) Ethyl Alcohol mg/dL Coronavirus (PCR) NEGATIVE (Negative) Influenza Type A (PCR) NEGATIVE (Negative) Influenza Type B (PCR) NEGATIVE (Negative) RSV RNA Qual (PCR) NEGATIVE (Negative) Blood Type O Negative Antibody Screen NEGATIVE Crossmatch See Detail 06/01/20 06/01/20 06/01/20 Range/Units 16:25 16:26 19:55 WBC (4.8-10.8) X10*3/uL RBC (4.60-5.80) X10*6/uL Hgb (14.0-18.0) g/dl Hct (42-52) % MCV (80-98) fL MCH (27.0-33.0) pg MCHC (31.0-36.0) g/dl RDW (11.0-16.0) % Plt Count (160-400) X10*3/uL MPV Immature Gran % (Auto) Neut % (Auto) Lymph % (Auto) [place] % (Auto) Eos % (Auto) Baso % (Auto) Lymph # (Auto) [place] # (Auto) Eos # (Auto) Baso # (Auto) Abs Immat Gran (auto) Absolute Neuts (auto) Absolute Nucleated RBC (0.0-0.012) X10*3/uL Nucleated RBC % (auto) (0.0-0.2) /100WBC Neutrophils % (Manual) (45-73) % Band Neutrophils % (3-5) % Lymphocytes % (Manual) (20-40) % Monocytes % (Manual) (2-11) % Eosinophils % (Manual) (0-4) % Abs Neuts (Manual) (2.2-7.9) X10*3/uL Lymphocytes # (Manual) (0.6-4.8) X10*3/uL Monocytes # (Manual) (0.0-1.2) X10*3/uL Eosinophils # (Manual) (0.0-0.8) X10*3/UL Platelet Estimate (NORMAL) Large Platelets Plt Morphology Comment RBC Morphology Polychromasia Hypochromasia Microcytosis Tear Drop Cells Ovalocytes Absolute Retic (0.026-0.095) X10*6/uL Percent Retic (0.5-1.8) % Immature Retic Fraction (2.3-13.4) % Retic Hgb Equivalent (30.0-35.0) pg Hold Purple Top PT (10.8-13.0) SEC INR (0.9-1.1) APTT (24.1-38.0) SEC Fibrinogen (259-690) MG/DL D-Dimer NG/ML ABG pH (7.35-7.45) ABG pCO2 (32-45) mmHg ABG pO2 (83-108) mmHg ABG HCO3 (22-26) mmol/L ABG O2 Saturation % ABG Base Excess Oxygen Given Sodium (135-145) mmol/L Potassium (3.3-5.1) mmol/l Chloride (96-108) mmol/L Carbon Dioxide (22-29) mmol/L Anion Gap (12-20) BUN (9-16) mg/dL Creatinine (0.5-1.4) mg/dL Estim Creat Clear Calc Estimated GFR Random Glucose (60-115) mg/dL Lactic Acid 1.7 (0.5-2.0) mmol/L Calcium (8.4-10.2) mg/dL Magnesium (1.6-2.6) mg/dL Iron 8 L (45-160) mcg/dL TIBC 262 (228-428) mcg/dL % Saturation 3 L (15-50) % Unsat Iron Binding 254 ug/dL Total Bilirubin (0.0-1.0) mg/dL Direct Bilirubin (0.0-0.5) mg/dL AST (5-37) U/L ALT (0-40) U/L Alkaline Phosphatase (39-117) U/L Lactate Dehydrogenase 264 (118-273) U/L Troponin I High Sens (<3.5-35.0) ng/L B-Natriuretic Peptide (<100) pg/mL Total Protein (6.5-8.0) g/dL Albumin (3.5-5.0) g/dL Urine Color YELLOW Urine Appearance CLEAR Urine pH 6.0 (5.0-8.0) Ur Specific [place] 1.020 (1.005-1.025) Urine Protein TRACE (NEG-TRACE) MG/DL Urine Glucose (UA) NEG (NEG) MG/DL Urine Ketones NEG (NEG) MG/DL Urine Blood 1+ H (NEG) Urine Nitrite NEG (NEG) Ur Leukocyte Esterase NEG (NEG) Urine RBC 5-9 H (0) /HPF Urine WBC 0 (0-4) /HPF Ur Squamous Epith Cells 1+ /LPF Urine Bacteria NONE /LPF Urine Opiates Screen (Not Detect) Ur Barbiturates Screen (Not Detect) Ur Phencyclidine Scrn (Not Detect) Ur Amphetamines Screen (Not Detect) U Benzodiazepines Scrn (Not Detect) Urine Cocaine Screen (Not Detect) U Marijuana (THC) Screen (Not Detect) Ethyl Alcohol mg/dL Coronavirus (PCR) (Negative) Influenza Type A (PCR) (Negative) Influenza Type B (PCR) (Negative) RSV RNA Qual (PCR) (Negative) Blood Type Antibody Screen Crossmatch 06/01/20 06/01/20 06/01/20 Range/Units 19:55 20:23 20:23 WBC (4.8-10.8) X10*3/uL RBC (4.60-5.80) X10*6/uL Hgb (14.0-18.0) g/dl Hct (42-52) % MCV (80-98) fL MCH (27.0-33.0) pg MCHC (31.0-36.0) g/dl RDW (11.0-16.0) % Plt Count (160-400) X10*3/uL MPV Immature Gran % (Auto) Neut % (Auto) Lymph % (Auto) [place] % (Auto) Eos % (Auto) Baso % (Auto) Lymph # (Auto) [place] # (Auto) Eos # (Auto) Baso # (Auto) Abs Immat Gran (auto) Absolute Neuts (auto) Absolute Nucleated RBC (0.0-0.012) X10*3/uL Nucleated RBC % (auto) (0.0-0.2) /100WBC Neutrophils % (Manual) (45-73) % Band Neutrophils % (3-5) % Lymphocytes % (Manual) (20-40) % Monocytes % (Manual) (2-11) % Eosinophils % (Manual) (0-4) % Abs Neuts (Manual) (2.2-7.9) X10*3/uL Lymphocytes # (Manual) (0.6-4.8) X10*3/uL Monocytes # (Manual) (0.0-1.2) X10*3/uL Eosinophils # (Manual) (0.0-0.8) X10*3/UL Platelet Estimate (NORMAL) Large Platelets Plt Morphology Comment RBC Morphology Polychromasia Hypochromasia Microcytosis Tear Drop Cells Ovalocytes Absolute Retic (0.026-0.095) X10*6/uL Percent Retic (0.5-1.8) % Immature Retic Fraction (2.3-13.4) % Retic Hgb Equivalent (30.0-35.0) pg Hold Purple Top PT (10.8-13.0) SEC INR (0.9-1.1) APTT 61.1 H* (24.1-38.0) SEC Fibrinogen > 700 H (259-690) MG/DL D-Dimer 3841 NG/ML ABG pH (7.35-7.45) ABG pCO2 (32-45) mmHg ABG pO2 (83-108) mmHg ABG HCO3 (22-26) mmol/L ABG O2 Saturation % ABG Base Excess Oxygen Given Sodium (135-145) mmol/L Potassium (3.3-5.1) mmol/l Chloride (96-108) mmol/L Carbon Dioxide (22-29) mmol/L Anion Gap (12-20) BUN (9-16) mg/dL Creatinine (0.5-1.4) mg/dL Estim Creat Clear Calc Estimated GFR Random Glucose (60-115) mg/dL Lactic Acid (0.5-2.0) mmol/L Calcium (8.4-10.2) mg/dL Magnesium (1.6-2.6) mg/dL Iron (45-160) mcg/dL TIBC (228-428) mcg/dL % Saturation (15-50) % Unsat Iron Binding ug/dL Total Bilirubin (0.0-1.0) mg/dL Direct Bilirubin (0.0-0.5) mg/dL AST (5-37) U/L ALT (0-40) U/L Alkaline Phosphatase (39-117) U/L Lactate Dehydrogenase (118-273) U/L Troponin I High Sens (<3.5-35.0) ng/L B-Natriuretic Peptide 56 (<100) pg/mL Total Protein (6.5-8.0) g/dL Albumin (3.5-5.0) g/dL Urine Color Urine Appearance Urine pH (5.0-8.0) Ur Specific [place] (1.005-1.025) Urine Protein (NEG-TRACE) MG/DL Urine Glucose (UA) (NEG) MG/DL Urine Ketones (NEG) MG/DL Urine Blood (NEG) Urine Nitrite (NEG) Ur Leukocyte Esterase (NEG) Urine RBC (0) /HPF Urine WBC (0-4) /HPF Ur Squamous Epith Cells /LPF Urine Bacteria /LPF Urine Opiates Screen Not Detected (Not Detect) Ur Barbiturates Screen Not Detected (Not Detect) Ur Phencyclidine Scrn Not Detected (Not Detect) Ur Amphetamines Screen Not Detected (Not Detect) U Benzodiazepines Scrn Not Detected (Not Detect) Urine Cocaine Screen POSITIVE H (Not Detect) U Marijuana (THC) Screen Not Detected (Not Detect) Ethyl Alcohol mg/dL Coronavirus (PCR) (Negative) Influenza Type A (PCR) (Negative) Influenza Type B (PCR) (Negative) RSV RNA Qual (PCR) (Negative) Blood Type Antibody Screen Crossmatch 06/01/20 06/01/20 06/01/20 Range/Units 20:23 20:23 20:23 WBC (4.8-10.8) X10*3/uL RBC (4.60-5.80) X10*6/uL Hgb (14.0-18.0) g/dl Hct (42-52) % MCV (80-98) fL MCH (27.0-33.0) pg MCHC (31.0-36.0) g/dl RDW (11.0-16.0) % Plt Count (160-400) X10*3/uL MPV Immature Gran % (Auto) Neut % (Auto) Lymph % (Auto) [place] % (Auto) Eos % (Auto) Baso % (Auto) Lymph # (Auto) [place] # (Auto) Eos # (Auto) Baso # (Auto) Abs Immat Gran (auto) Absolute Neuts (auto) Absolute Nucleated RBC (0.0-0.012) X10*3/uL Nucleated RBC % (auto) (0.0-0.2) /100WBC Neutrophils % (Manual) (45-73) % Band Neutrophils % (3-5) % Lymphocytes % (Manual) (20-40) % Monocytes % (Manual) (2-11) % Eosinophils % (Manual) (0-4) % Abs Neuts (Manual) (2.2-7.9) X10*3/uL Lymphocytes # (Manual) (0.6-4.8) X10*3/uL Monocytes # (Manual) (0.0-1.2) X10*3/uL Eosinophils # (Manual) (0.0-0.8) X10*3/UL Platelet Estimate (NORMAL) Large Platelets Plt Morphology Comment RBC Morphology Polychromasia Hypochromasia Microcytosis Tear Drop Cells Ovalocytes Absolute Retic 0.043 (0.026-0.095) X10*6/uL Percent Retic 0.9 (0.5-1.8) % Immature Retic Fraction 17.2 H (2.3-13.4) % Retic Hgb Equivalent 14.7 L (30.0-35.0) pg Hold Purple Top PT (10.8-13.0) SEC INR (0.9-1.1) APTT (24.1-38.0) SEC Fibrinogen (259-690) MG/DL D-Dimer NG/ML ABG pH (7.35-7.45) ABG pCO2 (32-45) mmHg ABG pO2 (83-108) mmHg ABG HCO3 (22-26) mmol/L ABG O2 Saturation % ABG Base Excess Oxygen Given Sodium (135-145) mmol/L Potassium (3.3-5.1) mmol/l Chloride (96-108) mmol/L Carbon Dioxide (22-29) mmol/L Anion Gap (12-20) BUN (9-16) mg/dL Creatinine (0.5-1.4) mg/dL Estim Creat Clear Calc Estimated GFR Random Glucose (60-115) mg/dL Lactic Acid (0.5-2.0) mmol/L Calcium (8.4-10.2) mg/dL Magnesium (1.6-2.6) mg/dL Iron (45-160) mcg/dL TIBC (228-428) mcg/dL % Saturation (15-50) % Unsat Iron Binding ug/dL Total Bilirubin (0.0-1.0) mg/dL Direct Bilirubin (0.0-0.5) mg/dL AST (5-37) U/L ALT (0-40) U/L Alkaline Phosphatase (39-117) U/L Lactate Dehydrogenase (118-273) U/L Troponin I High Sens 7.4 (<3.5-35.0) ng/L B-Natriuretic Peptide (<100) pg/mL Total Protein (6.5-8.0) g/dL Albumin (3.5-5.0) g/dL Urine Color Urine Appearance Urine pH (5.0-8.0) Ur Specific [place] (1.005-1.025) Urine Protein (NEG-TRACE) MG/DL Urine Glucose (UA) (NEG) MG/DL Urine Ketones (NEG) MG/DL Urine Blood (NEG) Urine Nitrite (NEG) Ur Leukocyte Esterase (NEG) Urine RBC (0) /HPF Urine WBC (0-4) /HPF Ur Squamous Epith Cells /LPF Urine Bacteria /LPF Urine Opiates Screen (Not Detect) Ur Barbiturates Screen (Not Detect) Ur Phencyclidine Scrn (Not Detect) Ur Amphetamines Screen (Not Detect) U Benzodiazepines Scrn (Not Detect) Urine Cocaine Screen (Not Detect) U Marijuana (THC) Screen (Not Detect) Ethyl Alcohol < 10 mg/dL Coronavirus (PCR) (Negative) Influenza Type A (PCR) (Negative) Influenza Type B (PCR) (Negative) RSV RNA Qual (PCR) (Negative) Blood Type Antibody Screen Crossmatch 06/01/20 Range/Units 23:11 WBC (4.8-10.8) X10*3/uL RBC (4.60-5.80) X10*6/uL Hgb (14.0-18.0) g/dl Hct (42-52) % MCV (80-98) fL MCH (27.0-33.0) pg MCHC (31.0-36.0) g/dl RDW (11.0-16.0) % Plt Count (160-400) X10*3/uL MPV Immature Gran % (Auto) Neut % (Auto) Lymph % (Auto) [place] % (Auto) Eos % (Auto) Baso % (Auto) Lymph # (Auto) [place] # (Auto) Eos # (Auto) Baso # (Auto) Abs Immat Gran (auto) Absolute Neuts (auto) Absolute Nucleated RBC (0.0-0.012) X10*3/uL Nucleated RBC % (auto) (0.0-0.2) /100WBC Neutrophils % (Manual) (45-73) % Band Neutrophils % (3-5) % Lymphocytes % (Manual) (20-40) % Monocytes % (Manual) (2-11) % Eosinophils % (Manual) (0-4) % Abs Neuts (Manual) (2.2-7.9) X10*3/uL Lymphocytes # (Manual) (0.6-4.8) X10*3/uL Monocytes # (Manual) (0.0-1.2) X10*3/uL Eosinophils # (Manual) (0.0-0.8) X10*3/UL Platelet Estimate (NORMAL) Large Platelets Plt Morphology Comment RBC Morphology Polychromasia Hypochromasia Microcytosis Tear Drop Cells Ovalocytes Absolute Retic (0.026-0.095) X10*6/uL Percent Retic (0.5-1.8) % Immature Retic Fraction (2.3-13.4) % Retic Hgb Equivalent (30.0-35.0) pg Hold Purple Top PT (10.8-13.0) SEC INR (0.9-1.1) APTT (24.1-38.0) SEC Fibrinogen (259-690) MG/DL D-Dimer NG/ML ABG pH 7.46 H (7.35-7.45) ABG pCO2 34 (32-45) mmHg ABG pO2 144 H (83-108) mmHg ABG HCO3 24 (22-26) mmol/L ABG O2 Saturation 99.0 % ABG Base Excess 1.3 Oxygen Given 30% Sodium (135-145) mmol/L Potassium (3.3-5.1) mmol/l Chloride (96-108) mmol/L Carbon Dioxide (22-29) mmol/L Anion Gap (12-20) BUN (9-16) mg/dL Creatinine (0.5-1.4) mg/dL Estim Creat Clear Calc Estimated GFR Random Glucose (60-115) mg/dL Lactic Acid (0.5-2.0) mmol/L Calcium (8.4-10.2) mg/dL Magnesium (1.6-2.6) mg/dL Iron (45-160) mcg/dL TIBC (228-428) mcg/dL % Saturation (15-50) % Unsat Iron Binding ug/dL Total Bilirubin (0.0-1.0) mg/dL Direct Bilirubin (0.0-0.5) mg/dL AST (5-37) U/L ALT (0-40) U/L Alkaline Phosphatase (39-117) U/L Lactate Dehydrogenase (118-273) U/L Troponin I High Sens (<3.5-35.0) ng/L B-Natriuretic Peptide (<100) pg/mL Total Protein (6.5-8.0) g/dL Albumin (3.5-5.0) g/dL Urine Color Urine Appearance Urine pH (5.0-8.0) Ur Specific Golden (1.005-1.025) Urine Protein (NEG-TRACE) MG/DL Urine Glucose (UA) (NEG) MG/DL Urine Ketones (NEG) MG/DL Urine Blood (NEG) Urine Nitrite (NEG) Ur Leukocyte Esterase (NEG) Urine RBC (0) /HPF Urine WBC (0-4) /HPF Ur Squamous Epith Cells /LPF Urine Bacteria /LPF Urine Opiates Screen (Not Detect) Ur Barbiturates Screen (Not Detect) Ur Phencyclidine Scrn (Not Detect) Ur Amphetamines Screen (Not Detect) U Benzodiazepines Scrn (Not Detect) Urine Cocaine Screen (Not Detect) U Marijuana (THC) Screen (Not Detect) Ethyl Alcohol mg/dL Coronavirus (PCR) (Negative) Influenza Type A (PCR) (Negative) Influenza Type B (PCR) (Negative) RSV RNA Qual (PCR) (Negative) Blood Type Antibody Screen Crossmatch <Triston Miller MD - Last Filed: 06/01/20 23:32> Imaging Data CT scan of brain: Attestation: I personally reviewed and interpreted this imaging study as follows: <EROS Salazar - Last Filed: 06/01/20 19:40> Radiologist's impression: FINDINGS: There is no evidence of acute intracranial hemorrhage or territorial infarction. No abnormal mass effect or midline shift is seen. Michelle to white matter differentiation is well preserved. No extra-axial fluid collections are identified. No hydrocephalus. No significant volume loss. There is no abnormal attenuation within the brain parenchyma. The osseous structures and soft tissues are normal. The middle ear cavities are well-aerated. The external auditory canals are clear. Mucous retention cyst in the left maxillary sinus. The mastoid air cells and visualized portions of the paranasal sinuses are otherwise well aerated. CT/CT head/brain wo con IMPRESSION: No acute intracranial pathology. <EROS Salazar - Last Filed: 06/01/20 19:40> Critical Care Time Critical Care Time Critical Care Time: Yes <EROS Salazar - Last Filed: 06/01/20 19:40> Total Critical Care Time: 60 <EROS Salazar - Last Filed: 06/01/20 19:40> Attestation: I personally attest to this time spent taking care of the patient <EROS Salazar - Last Filed: 06/01/20 19:40> Discharge Plan Discharge Clinical Impression: Anemia, Purpura, Hematoma of ear, left, Ear hematoma, right <EROS Salazar - Last Filed: 06/01/20 19:40> Patient Disposition: Admitted As Inpatient <EROS Salazar - Last Filed: 06/01/20 19:40>
--- NOTE | 2020-06-01 18:02 | PC.NURSE ---
PT TEMP INCREASED TO 100.5. PT DENIES ANY SYMPOOMS. DR LOBATO AWARE. MONITOR PATIENT.
--- NOTE | 2020-06-01 19:23 | CT_ITS ---
EXAMINATION: CT ANGIOGRAM OF THE CHEST WITH AND WITHOUT CONTRAST (CT PULMONARY ANGIOGRAM FOR PE) CLINICAL INFORMATION: Reason for Exam pt with purpura COMPARISON: None TECHNIQUE: Prior to contrast administration, noncontrast localization images were obtained. Subsequently, multidetector volumetric imaging was performed from the thoracic inlet to below the diaphragms following the administration of 100 mL Omnipaque 350 intravenous contrast. No contrast reaction reported Sagittal, coronal, and MIP oblique sagittal reformatted images were obtained on the CT workstation, uploaded to PACS, and reviewed. This CT examination was performed using dose optimization techniques as appropriate, variously including the following: *Automated exposure control *Adjustment of mA and/or kV according to patient size (this includes techniques or standardized protocols for targeted exams where dose is matched to indication/reason for exam; i.e. extremities or head) *Use of iterative reconstruction technique Total exam dose-length product 1745 mGy-cm FINDINGS: QUALITY OF STUDY/CONTRAST BOLUS: Poor bolus and poor quality study with considerable noise as well as motion artifact. PULMONARY ARTERIES: No large central pulmonary emboli. THORACIC AORTA: No aneurysm or dissection. LUNG: No focal consolidation, nodules or masses. PLEURA: No pleural effusion or pneumothorax. MEDIASTINUM: Normal heart size. No pericardial effusion. No hilar or mediastinal lymphadenopathy. No evidence of septal bowing or right heart strain. CHEST WALL/AXILLA: No axillary or internal mammary lymphadenopathy. OSSEOUS STRUCTURES: No acute or suspicious osseous abnormality. UPPER ABDOMEN: See report from CT scan of abdomen same day. No reflux of contrast into the hepatic veins to suggest elevated right heart pressures. CT/CT angio chest PE protocol IMPRESSION: Very limited study. No large central pulmonary emboli are seen. Diagnosis of more distal disease would be difficult in this case. If desired, exam could be repeated without the low-dose technique. This critical result was discussed with Dr. Miller at 11:00 PM on the day the exam and it was ascertained that the content and urgency of the report was understood at the time of direct communication. VTE: Negative but extremely limited.
--- NOTE | 2020-06-01 19:23 | US_ITS ---
EXAMINATION: ULTRASOUND ARTERIAL DUPLEX LOWER EXTREMITY BILATERAL CLINICAL INFORMATION: Purpura COMPARISON: None TECHNIQUE: Grayscale, color and spectral Doppler imaging was obtained of the deep arterial system of both lower extremities. Today's examination is limited secondary to patient body habitus. FINDINGS: Right lower extremity: Scattered multiphasic waveforms are present throughout the deep arterial system of the right lower extremity. Focally elevated velocity of 244 cm/s within the proximal superficial femoral artery may represent a focal stenosis. The right peroneal artery is not clearly visualized. Soft tissue edema particularly within the calf. Left lower extremity: Multiphasic waveforms demonstrated throughout the left common femoral artery, superficial femoral artery and popliteal artery. The posterior tibial artery is patent. The left peroneal artery is not clearly visualized. There is no evidence for focal hemodynamically significant stenosis within the left lower extremity. Soft tissue edema particularly within the calf. US/US arterial duplex LE IMPRESSION: -Visualized portions of the bilateral lower extremity deep arterial systems are patent. - Neither peroneal artery was clearly visualized. This may be due to patient body habitus and overlying subcutaneous edema, however, it is possible both of these arteries are occluded. Clinical correlation recommended.
--- NOTE | 2020-06-01 19:23 | CT_ITS ---
EXAMINATION: CT ABDOMEN AND PELVIS WITH CONTRAST CLINICAL INFORMATION: Purpura COMPARISON: None TECHNIQUE: Multidetector volumetric images were obtained from the superior aspect of the liver through the pubic symphysis following administration 100 mL of Omnipaque 350 intravenous contrast. Sagittal and coronal reformatted images were obtained on the technologist's workstation. Oral contrast: No This CT examination was performed using dose optimization techniques as appropriate, variously including the following: *Automated exposure control *Adjustment of mA and/or kV according to patient size (this includes techniques or standardized protocols for targeted exams where dose is matched to indication/reason for exam; i.e. extremities or head) *Use of iterative reconstruction technique DLP: 1234 mGy-cm FINDINGS: LUNG BASES: The visualized lung bases are unremarkable. LIVER, GALLBLADDER, AND BILIARY TREE: The liver is enlarged measuring over 24 cm in greatest length. No focal liver mass or bile duct dilatation is seen. The gallbladder is contracted and contains multiple stones. No pericholecystic inflammatory changes are seen to suggest cholecystitis. PANCREAS: Unremarkable. SPLEEN: There is marked splenomegaly with the spleen measuring over 22 cm in greatest dimension. ADRENAL GLANDS: Unremarkable. KIDNEYS AND URETERS: The right kidney appears normal. The left kidney demonstrates at least 7 intrarenal nonobstructing calculi the largest measuring about 6 mm in the lower pole. This measures about 550 Hounsfield units and is 19 cm from the posterior axillary line. A small subcentimeter cyst is noted in the left mid kidney. Neither ureter is dilated. BLADDER: Unremarkable. GASTROINTESTINAL TRACT: Some colonic diverticula are noted without diverticulitis. The small and large bowel are otherwise unremarkable. The appendix is unremarkable. ABDOMINAL WALL: There is a left inguinal hernia present containing only fat. LYMPH NODES: Retroperitoneal lymphadenopathy is present with multiple small shotty nodes in the retroaortic, aortocaval and para-aortic regions. There are multiple enlarged iliac nodes present, left greater than right. The largest 3 measure 2.7 x 2.6 x 3.5 cm (series 15 image 75) and 3.0 x 2.8 x 4.0 cm (series 15 image 65) and 6.2 x 2.8 x 3.5 cm (series 15 image 85). This latter node would probably be amenable to ultrasound-guided biopsy. Some streaky inflammatory changes noted surrounding these nodes. VASCULAR: Unremarkable. PELVIC VISCERA: Prostate and seminal vesicles appear normal. OSSEOUS STRUCTURES: Unremarkable. CT/CT abdomen pelvis w con IMPRESSION: 1. Marked hepatosplenomegaly. 2. Retroperitoneal lymphadenopathy. 3. These findings suggests entities such as lymphoma. The retroperitoneal lymph nodes would be amenable to image guided biopsy should this be needed. 4. Incidentally noted multiple nonobstructing left renal calculi, colonic diverticulosis left inguinal hernia and cholelithiasis. This critical result was discussed with Dr. Miller at 11:00 PM on the day the exam and it was ascertained that the content and urgency of the report was understood at the time of direct communication.
[2020-06-01 20:15] LABS: Glucose Urine UA NEG (NEG); Leukocyte Esterase Urine NEG (NEG); Nitrite Urine NEG (NEG); Urine Blood 1+ (NEG); Urine Ketones NEG (NEG); Urine Protein TRACE MG/DL (NEG-TRACE)
[2020-06-01 20:19] LABS: Appearance Urine CLEAR; Color Urine YELLOW
[2020-06-01 20:33] LABS: Immature Retic Fraction 17.2 % (2.3-13.4); Retic HGB Equivalent 14.7 pg (30.0-35.0); Reticulocyte Percent 0.9 % (0.5-1.8); Reticulocytes Absolute 0.043 X10*6/uL (0.026-0.095)
[2020-06-01 20:44] LABS: Squamous Epithelial Cell Urine 1+ /LPF; WBC Urine 0 /HPF (0-4)
[2020-06-01 20:54] LABS: Ethanol < 10 mg/dL
[2020-06-01 20:57] LABS: Partial Thromboplastin Time 61.1 SEC (24.1-38.0)
[2020-06-01 20:58] LABS: D Dimer 3841 NG/ML; Fibrinogen > 700 MG/DL (259-690)
[2020-06-01 21:03] LABS: Troponin-I High Sensitivity 7.4 ng/L (<3.5-35.0)
[2020-06-01 21:04] LABS: B Type Natriuretic Peptide 56 pg/mL (<100)
[2020-06-01] MEDS: cefTRIAXone sodium 2 GM in 0.9 % Sodium Chloride 50 ML IV (21:30)
[2020-06-01] MEDS: 0.9 % Sodium Chloride 1,000 ML 999 ML IVCONT (21:30)
[2020-06-01] MEDS: iohexoL 350 MG/ML 100 ML INFUS..BTL IV (22:09)
[2020-06-01] MEDS: Furosemide 40 MG/4 ML VIAL IVPUSH (22:16)
[2020-06-01] MEDS: Phytonadione (Vit K1) 5 MG in 0.9 % Sodium Chloride 50 ML 50.5 MG IV (22:29)
[2020-06-01] MEDS: Sodium Ferric Gluconat/Sucrose 125 MG in 0.9 % Sodium Chloride 100 ML 100 MG IV (22:47)
--- NOTE | 2020-06-01 22:54 | PC.NURSE ---
pt moved to room 5 report received from prev rn flo pt placed on bipap, pt anxiouse the the mask due to he has a stuffy nose per pt. with talking and education on needs and benefits pt agreed to go on the bipap. resp at bedside, pt on 30% / sat 100% pt ears mahnaz in dave black tissue noted to ears and toes.
--- NOTE | 2020-06-01 22:57 | PC.NURSE ---
urininal 300cc clear yellow.
[2020-06-01 23:04] LABS: Amphetamine Screen Urine Not Detected (Not Detect); Barbiturates, Urine Not Detected (Not Detect); Benzodiazepines Screen Urine Not Detected (Not Detect); Cannabinoid Screen Urine Not Detected (Not Detect); Cocaine Screen Urine POSITIVE (Not Detect); Opiate Screen Urine Not Detected (Not Detect); Phencyclidine Screen Urine Not Detected (Not Detect)
[2020-06-01 23:14] LABS: Pt Ventilation O2% 30%
[2020-06-01 23:17] LABS: ABG PCO2 34 mmHg (32-45); Base Excess ABG 1.3; HCO3 ABG 24 mmol/L (22-26); PO2 ABG 144 mmHg (83-108); pH ABG 7.46 (7.35-7.45)
--- NOTE | 2020-06-01 23:43 | PC.NURSE ---
pt incont large amount of urine. pt stood at the end of the bed and urine collected in urinal 550cc plus linen soaked.
[2020-06-02] VITALS (7 sets, daily range): BP systolic 126–143; BP diastolic 67–77; PULSE 117–125; RESP 27–31; TEMP 37.1; O2SAT 98–100
[2020-06-02 00:36] LABS: Rheumatoid Factor < 15.0 IU/mL (<15.0)
--- NOTE | 2020-06-02 01:11 | PC.NURSE ---
HOSPITALIST CALLED AND VERBAL ORDER NOT TO GIVE THE HEPARIN SC. NO FURTHER ABG NEEDED ONLY THE ONE SET AT THIS TIME. PT IS TO USE THE BIPAP AT NIGHT DUE TO SLEEP APNEA HISTORY.
[2020-06-02] MEDS: 0.9 % Sodium Chloride Flush 3 ML SYRINGE IVFLUSH ×2 (05:48→09:24)
[2020-06-02 05:56] LABS: Basophils Percent Auto 0.3 % (0-2); MANUAL DIFF FLAG SCAN; Red Cell Distribution Width 21.7 % (11.0-16.0); SCAN SMEAR FLAG 1
[2020-06-02 05:58] LABS: Hematocrit 27.3 % (42-52); Hemoglobin 7.7 g/dl (14.0-18.0); Imm Gran Abs Auto 0.03 X10*3/uL (0.00-0.03); Imm Gran Pct Auto 0.5 % (0.0-0.4); Lymphocytes Absolute Auto 0.6 X10*3/uL (1.2-4.9); Lymphocytes Percent Auto 9.8 % (20-40); Mean Corpuscular HGB Conc 28.2 g/dl (31.0-36.0); Mean Corpuscular Hemoglobin 17.5 pg (27.0-33.0); Monocytes Absolute Auto 0.2 X10*3/uL (0.1-1.2); Monocytes Percent Auto 3.5 % (2-11); Neutrophils Absolute Auto 5.4 X10*3/uL (2.0-8.3); Neutrophils Percent Auto 85.9 % (45-73); Platelet Count 199 X10*3/uL (160-400); Red Blood Count 4.39 X10*6/uL (4.60-5.80); White Blood Count 6.2 X10*3/uL (4.8-10.8)
--- NOTE | 2020-06-02 06:12 | PC.NURSE ---
pt gives thumbs up that he is feeling good. pt still on cpap at this time. hr st 117 provider aware.
--- NOTE | 2020-06-02 06:14 | PM.IMHP ---
History of Present Illness Date of Service: 06/01/20 Chief Complaint: EAR problems This is a 44-year-old male with past medical history of hypertension, sleep apnea who presents to the hospital with complaints of years skin changes. Patient reports that he noticed his years change in color today, and decided to come to the ED for further evaluation. He otherwise denies any headache, change in vision, no chest pain, no shortness of breath, no abdominal pain, nausea or vomiting, no dizziness, no weakness, no lower extremity edema. No diarrhea constipation. No urinary symptoms. Vitals on arrival are significant for a temp of a 100.3?, heart rate of 120, respiratory rate of 20, blood pressure of 114/59 Of 6.3, hemoglobin of 7.1, hematocrit 25.6, MCV of 59.8, PT of 19.5, INR of 1.6, he has a fibrinogen level of more than 700, D-dimer of 3841, sodium of 132, iron of 8, UA negative, UDS positive for cocaine, COVID-19 negative, CT angiogram of the chest shows no large central pulmonary emboli although very limited study. Abdominal CT shows marked hepatocellular no megaly, retroperitoneal lymphadenopathy, possibly secondary to lymphoma. While in the ED was placed on BiPAP machine given his history of sleep apnea with no evidence of hypercapnia or resp acidosis Hematology-Oncology was consulted and patient will be admitted for further evaluation. Past medical history: Hypertension, sleep apnea Past surgical history: Denies Family history: Denies Social history: Comes from home, denies tobacco use. Patient reports using cocaine denies alcohol [facility] Medical History Allergies HTN (hypertension) Social History Alcohol intake: unknown Smoking Status: Unknown if ever smoked Substance Use Type: Crack/Cocaine Last Used Substance: Just Prior to Admission Advance Directives: No Advance Directives Information Provided: No Meds Allergies Allergy/AdvReac Type Severity Reaction Status Date / Time No Known Allergies Allergy Verified 06/01/20 15:37 Home Medications Medication Instructions Recorded Confirmed Type No Known Home Meds 06/01/20 06/01/20 History Physical Exam Vital Signs and Narrative: Vital Signs: Last Vital Signs Temp 99.8 F 01/14/21 21:05 Pulse 118 H 06/02/20 05:49 Resp 29 H 06/02/20 05:49 BP 126/67 06/02/20 05:49 Pulse Ox 99 06/02/20 05:49 Body Mass Index 39.5 Const: Other: obese, on CPAP General: cooperative and no acute distress Orientation/consciousness: patient oriented x3 HENMT: Other: hematoma of ear lobes bilaterally Eyes: General: appearance normal, both eyes and all related structures Resp: Effort & Inspection: normal respiratory effort and able to speak in complete sentences Cardio: Rate: regular rate Rhythm: regular rhythm GI: Palpation (GI): Soft to palpation Auscultation: normal bowel sounds Skin: General skin exam: no rashes or lesions noted Neuro: General: patient oriented x3 Cognition (Neuro): normal cognition Extrem: General: Yes normal to inspection and Yes no pedal edema Results Labs CBC and Chem 7: 06/01/20 15:48 06/01/20 15:49 Labs: Laboratory Results - last 24 hr 06/01/20 06/01/20 06/01/20 15:48 15:48 15:48 MCV 59.8 L MCH 16.6 L MCHC 27.7 L RDW 18.9 H Plt Count 218 MPV Not Reportable Immature Gran % (Auto) Cancelled Neut % (Auto) Cancelled Lymph % (Auto) Cancelled [place] % (Auto) Cancelled Eos % (Auto) Cancelled Baso % (Auto) Cancelled Lymph # (Auto) Cancelled [place] # (Auto) Cancelled Eos # (Auto) Cancelled Baso # (Auto) Cancelled Abs Immat Gran (auto) Cancelled Absolute Neuts (auto) Cancelled Absolute Nucleated RBC 0.040 H Nucleated RBC % (auto) 0.6 H Neutrophils % (Manual) 84 H Band Neutrophils % 0 L Lymphocytes % (Manual) 12 L Monocytes % (Manual) 3 Eosinophils % (Manual) 1 Abs Neuts (Manual) 5.3 Lymphocytes # (Manual) 0.8 Monocytes # (Manual) 0.2 Eosinophils # (Manual) 0.1 Platelet Estimate NORMAL Large Platelets PRESENT Plt Morphology Comment NOTED RBC Morphology NOTED Polychromasia 1+ Hypochromasia 2+ Microcytosis 3+ Tear Drop Cells 2+ Ovalocytes 1+ Absolute Retic Percent Retic Immature Retic Fraction Retic Hgb Equivalent Hold Purple Top SEE NOTE PT 19.5 H INR 1.6 H APTT Fibrinogen D-Dimer ABG pH ABG pCO2 ABG pO2 ABG HCO3 ABG O2 Saturation ABG Base Excess Oxygen Given Anion Gap Estim Creat Clear Calc Estimated GFR Random Glucose Lactic Acid Calcium Magnesium Iron TIBC % Saturation Unsat Iron Binding Total Bilirubin Direct Bilirubin AST ALT Alkaline Phosphatase Lactate Dehydrogenase Troponin I High Sens B-Natriuretic Peptide Total Protein Albumin Urine Color Urine Appearance Urine pH Ur Specific [place] Urine Protein Urine Glucose (UA) Urine Ketones Urine Blood Urine Nitrite Ur Leukocyte Esterase Urine RBC Urine WBC Ur Squamous Epith Cells Urine Bacteria Urine Opiates Screen Ur Barbiturates Screen Ur Phencyclidine Scrn Ur Amphetamines Screen U Benzodiazepines Scrn Urine Cocaine Screen U Marijuana (THC) Screen Ethyl Alcohol Rheumatoid Factor Coronavirus (PCR) Influenza Type A (PCR) Influenza Type B (PCR) RSV RNA Qual (PCR) Blood Type Antibody Screen Crossmatch 06/01/20 06/01/20 06/01/20 15:49 15:50 16:24 MCV MCH MCHC RDW Plt Count MPV Immature Gran % (Auto) Neut % (Auto) Lymph % (Auto) [place] % (Auto) Eos % (Auto) Baso % (Auto) Lymph # (Auto) [place] # (Auto) Eos # (Auto) Baso # (Auto) Abs Immat Gran (auto) Absolute Neuts (auto) Absolute Nucleated RBC Nucleated RBC % (auto) Neutrophils % (Manual) Band Neutrophils % Lymphocytes % (Manual) Monocytes % (Manual) Eosinophils % (Manual) Abs Neuts (Manual) Lymphocytes # (Manual) Monocytes # (Manual) Eosinophils # (Manual) Platelet Estimate Large Platelets Plt Morphology Comment RBC Morphology Polychromasia Hypochromasia Microcytosis Tear Drop Cells Ovalocytes Absolute Retic Percent Retic Immature Retic Fraction Retic Hgb Equivalent Hold Purple Top PT INR APTT Fibrinogen D-Dimer ABG pH ABG pCO2 ABG pO2 ABG HCO3 ABG O2 Saturation ABG Base Excess Oxygen Given Anion Gap 12 Estim Creat Clear Calc 136.5 Estimated GFR > 60 Random Glucose 108 Lactic Acid Calcium 8.1 L Magnesium 1.9 Iron TIBC % Saturation Unsat Iron Binding Total Bilirubin 1.3 H Direct Bilirubin 0.8 H AST 25 ALT < 6 Alkaline Phosphatase 78 Lactate Dehydrogenase Troponin I High Sens B-Natriuretic Peptide Total Protein 7.4 Albumin 3.3 L Urine Color Urine Appearance Urine pH Ur Specific [place] Urine Protein Urine Glucose (UA) Urine Ketones Urine Blood Urine Nitrite Ur Leukocyte Esterase Urine RBC Urine WBC Ur Squamous Epith Cells Urine Bacteria Urine Opiates Screen Ur Barbiturates Screen Ur Phencyclidine Scrn Ur Amphetamines Screen U Benzodiazepines Scrn Urine Cocaine Screen U Marijuana (THC) Screen Ethyl Alcohol Rheumatoid Factor Coronavirus (PCR) NEGATIVE Influenza Type A (PCR) NEGATIVE Influenza Type B (PCR) NEGATIVE RSV RNA Qual (PCR) NEGATIVE Blood Type O Negative Antibody Screen NEGATIVE Crossmatch See Detail 06/01/20 06/01/20 06/01/20 16:25 16:26 19:55 MCV MCH MCHC RDW Plt Count MPV Immature Gran % (Auto) Neut % (Auto) Lymph % (Auto) [place] % (Auto) Eos % (Auto) Baso % (Auto) Lymph # (Auto) [place] # (Auto) Eos # (Auto) Baso # (Auto) Abs Immat Gran (auto) Absolute Neuts (auto) Absolute Nucleated RBC Nucleated RBC % (auto) Neutrophils % (Manual) Band Neutrophils % Lymphocytes % (Manual) Monocytes % (Manual) Eosinophils % (Manual) Abs Neuts (Manual) Lymphocytes # (Manual) Monocytes # (Manual) Eosinophils # (Manual) Platelet Estimate Large Platelets Plt Morphology Comment RBC Morphology Polychromasia Hypochromasia Microcytosis Tear Drop Cells Ovalocytes Absolute Retic Percent Retic Immature Retic Fraction Retic Hgb Equivalent Hold Purple Top PT INR APTT Fibrinogen D-Dimer ABG pH ABG pCO2 ABG pO2 ABG HCO3 ABG O2 Saturation ABG Base Excess Oxygen Given Anion Gap Estim Creat Clear Calc Estimated GFR Random Glucose Lactic Acid 1.7 Calcium Magnesium Iron 8 L TIBC 262 % Saturation 3 L Unsat Iron Binding 254 Total Bilirubin Direct Bilirubin AST ALT Alkaline Phosphatase Lactate Dehydrogenase 264 Troponin I High Sens B-Natriuretic Peptide Total Protein Albumin Urine Color YELLOW Urine Appearance CLEAR Urine pH 6.0 Ur Specific [place] 1.020 Urine Protein TRACE Urine Glucose (UA) NEG Urine Ketones NEG Urine Blood 1+ H Urine Nitrite NEG Ur Leukocyte Esterase NEG Urine RBC 5-9 H Urine WBC 0 Ur Squamous Epith Cells 1+ Urine Bacteria NONE Urine Opiates Screen Ur Barbiturates Screen Ur Phencyclidine Scrn Ur Amphetamines Screen U Benzodiazepines Scrn Urine Cocaine Screen U Marijuana (THC) Screen Ethyl Alcohol Rheumatoid Factor Coronavirus (PCR) Influenza Type A (PCR) Influenza Type B (PCR) RSV RNA Qual (PCR) Blood Type Antibody Screen Crossmatch 06/01/20 06/01/2021 19:55 20:23 20:23 MCV MCH MCHC RDW Plt Count MPV Immature Gran % (Auto) Neut % (Auto) Lymph % (Auto) [place] % (Auto) Eos % (Auto) Baso % (Auto) Lymph # (Auto) [place] # (Auto) Eos # (Auto) Baso # (Auto) Abs Immat Gran (auto) Absolute Neuts (auto) Absolute Nucleated RBC Nucleated RBC % (auto) Neutrophils % (Manual) Band Neutrophils % Lymphocytes % (Manual) Monocytes % (Manual) Eosinophils % (Manual) Abs Neuts (Manual) Lymphocytes # (Manual) Monocytes # (Manual) Eosinophils # (Manual) Platelet Estimate Large Platelets Plt Morphology Comment RBC Morphology Polychromasia Hypochromasia Microcytosis Tear Drop Cells Ovalocytes Absolute Retic Percent Retic Immature Retic Fraction Retic Hgb Equivalent Hold Purple Top PT INR APTT 61.1 H* Fibrinogen > 700 H D-Dimer 3841 ABG pH ABG pCO2 ABG pO2 ABG HCO3 ABG O2 Saturation ABG Base Excess Oxygen Given Anion Gap Estim Creat Clear Calc Estimated GFR Random Glucose Lactic Acid Calcium Magnesium Iron TIBC % Saturation Unsat Iron Binding Total Bilirubin Direct Bilirubin AST ALT Alkaline Phosphatase Lactate Dehydrogenase Troponin I High Sens B-Natriuretic Peptide 56 Total Protein Albumin Urine Color Urine Appearance Urine pH Ur Specific [place] Urine Protein Urine Glucose (UA) Urine Ketones Urine Blood Urine Nitrite Ur Leukocyte Esterase Urine RBC Urine WBC Ur Squamous Epith Cells Urine Bacteria Urine Opiates Screen Not Detected Ur Barbiturates Screen Not Detected Ur Phencyclidine Scrn Not Detected Ur Amphetamines Screen Not Detected U Benzodiazepines Scrn Not Detected Urine Cocaine Screen POSITIVE H U Marijuana (THC) Screen Not Detected Ethyl Alcohol Rheumatoid Factor Coronavirus (PCR) Influenza Type A (PCR) Influenza Type B (PCR) RSV RNA Qual (PCR) Blood Type Antibody Screen Crossmatch 06/01/20 06/01/20 06/01/20 20:23 20:23 20:23 MCV MCH MCHC RDW Plt Count MPV Immature Gran % (Auto) Neut % (Auto) Lymph % (Auto) [place] % (Auto) Eos % (Auto) Baso % (Auto) Lymph # (Auto) [place] # (Auto) Eos # (Auto) Baso # (Auto) Abs Immat Gran (auto) Absolute Neuts (auto) Absolute Nucleated RBC Nucleated RBC % (auto) Neutrophils % (Manual) Band Neutrophils % Lymphocytes % (Manual) Monocytes % (Manual) Eosinophils % (Manual) Abs Neuts (Manual) Lymphocytes # (Manual) Monocytes # (Manual) Eosinophils # (Manual) Platelet Estimate Large Platelets Plt Morphology Comment RBC Morphology Polychromasia Hypochromasia Microcytosis Tear Drop Cells Ovalocytes Absolute Retic 0.043 Percent Retic 0.9 Immature Retic Fraction 17.2 H Retic Hgb Equivalent 14.7 L Hold Purple Top PT INR APTT Fibrinogen D-Dimer ABG pH ABG pCO2 ABG pO2 ABG HCO3 ABG O2 Saturation ABG Base Excess Oxygen Given Anion Gap Estim Creat Clear Calc Estimated GFR Random Glucose Lactic Acid Calcium Magnesium Iron TIBC % Saturation Unsat Iron Binding Total Bilirubin Direct Bilirubin AST ALT Alkaline Phosphatase Lactate Dehydrogenase Troponin I High Sens 7.4 B-Natriuretic Peptide Total Protein Albumin Urine Color Urine Appearance Urine pH Ur Specific [place] Urine Protein Urine Glucose (UA) Urine Ketones Urine Blood Urine Nitrite Ur Leukocyte Esterase Urine RBC Urine WBC Ur Squamous Epith Cells Urine Bacteria Urine Opiates Screen Ur Barbiturates Screen Ur Phencyclidine Scrn Ur Amphetamines Screen U Benzodiazepines Scrn Urine Cocaine Screen U Marijuana (THC) Screen Ethyl Alcohol < 10 Rheumatoid Factor Coronavirus (PCR) Influenza Type A (PCR) Influenza Type B (PCR) RSV RNA Qual (PCR) Blood Type Antibody Screen Crossmatch 06/01/20 06/01/20 20:23 23:11 MCV MCH MCHC RDW Plt Count MPV Immature Gran % (Auto) Neut % (Auto) Lymph % (Auto) [place] % (Auto) Eos % (Auto) Baso % (Auto) Lymph # (Auto) [place] # (Auto) Eos # (Auto) Baso # (Auto) Abs Immat Gran (auto) Absolute Neuts (auto) Absolute Nucleated RBC Nucleated RBC % (auto) Neutrophils % (Manual) Band Neutrophils % Lymphocytes % (Manual) Monocytes % (Manual) Eosinophils % (Manual) Abs Neuts (Manual) Lymphocytes # (Manual) Monocytes # (Manual) Eosinophils # (Manual) Platelet Estimate Large Platelets Plt Morphology Comment RBC Morphology Polychromasia Hypochromasia Microcytosis Tear Drop Cells Ovalocytes Absolute Retic Percent Retic Immature Retic Fraction Retic Hgb Equivalent Hold Purple Top PT INR APTT Fibrinogen D-Dimer ABG pH 7.46 H ABG pCO2 34 ABG pO2 144 H ABG HCO3 24 ABG O2 Saturation 99.0 ABG Base Excess 1.3 Oxygen Given 30% Anion Gap Estim Creat Clear Calc Estimated GFR Random Glucose Lactic Acid Calcium Magnesium Iron TIBC % Saturation Unsat Iron Binding Total Bilirubin Direct Bilirubin AST ALT Alkaline Phosphatase Lactate Dehydrogenase Troponin I High Sens B-Natriuretic Peptide Total Protein Albumin Urine Color Urine Appearance Urine pH Ur Specific [place] Urine Protein Urine Glucose (UA) Urine Ketones Urine Blood Urine Nitrite Ur Leukocyte Esterase Urine RBC Urine WBC Ur Squamous Epith Cells Urine Bacteria Urine Opiates Screen Ur Barbiturates Screen Ur Phencyclidine Scrn Ur Amphetamines Screen U Benzodiazepines Scrn Urine Cocaine Screen U Marijuana (THC) Screen Ethyl Alcohol Rheumatoid Factor < 15.0 Coronavirus (PCR) Influenza Type A (PCR) Influenza Type B (PCR) RSV RNA Qual (PCR) Blood Type Antibody Screen Crossmatch Imaging Radiologist's Impressions: Impressions Head CT 06/01/20 16:06 IMPRESSION: No acute intracranial pathology. Abdomen/Pelvis CT 06/01/20 19:23 IMPRESSION: 1. Marked hepatosplenomegaly. 2. Retroperitoneal lymphadenopathy. 3. These findings suggests entities such as lymphoma. The retroperitoneal lymph nodes would be amenable to image guided biopsy should this be needed. 4. Incidentally noted multiple nonobstructing left renal calculi, colonic diverticulosis left inguinal hernia and cholelithiasis. This critical result was discussed with Dr. Miller at 11:00 PM on the day the exam and it was ascertained that the content and urgency of the report was understood at the time of direct communication. Chest CTA 06/01/20 19:23 IMPRESSION: Very limited study. No large central pulmonary emboli are seen. Diagnosis of more distal disease would be difficult in this case. If desired, exam could be repeated without the low-dose technique. This critical result was discussed with Dr. Miller at 11:00 PM on the day the exam and it was ascertained that the content and urgency of the report was understood at the time of direct communication. VTE: Negative but extremely limited. Duplex Scan Lower Extremity Artery 06/01/20 19:23 IMPRESSION: -Visualized portions of the bilateral lower extremity deep arterial systems are patent. - Neither peroneal artery was clearly visualized. This may be due to patient body habitus and overlying subcutaneous edema, however, it is possible both of these arteries are occluded. Clinical correlation recommended. Assessment and Plan (1) Hematoma of ear, left: Qualifiers: Encounter type: initial encounter Qualified Code(s): S00.432A - Contusion of left ear, initial encounter Status: Acute (2) Ear hematoma, right: Qualifiers: Encounter type: initial encounter Qualified Code(s): S00.431A - Contusion of right ear, initial encounter Status: Acute (3) HTN (hypertension): Qualifiers: Hypertension type: essential hypertension Qualified Code(s): I10 - Essential (primary) hypertension Status: Acute (4) Sleep apnea: Qualifiers: Sleep apnea type: unspecified type Qualified Code(s): G47.30 - Sleep apnea, unspecified Status: Acute (5) Cocaine use: Status: Acute (6) Iron deficiency anemia: Qualifiers: Iron deficiency anemia type: unspecified iron deficiency Qualified Code(s): D50.9 - Iron deficiency anemia, unspecified Status: Acute (7) Hepatosplenomegaly: Status: Acute (8) Lymphadenopathy: Status: Acute (9) Coagulopathy: Status: Acute (10) Elevated d-dimer: Status: Acute This is a 44-year-old male with past medical history of hypertension and reported sleep apnea who presents to the hospital with complaints of sudden onset skin changes of his ears bilaterally. 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 in the setting of cocaine use - patient reports using cocaine right before these changes to the skin of his ears occurring - has significant other hematological abnormalities including hepatosplenic, retroperitoneal lymphadenopathy with elevated PT INR, elevated fibrinogen, elevated D-dimer Plan: - will obtain PRIYANKA, Anca, cryoglobulins, complement levels, anti double-stranded DNA, anti Ro, anti La, Torres antibodies, [employer] antibody, hepatitis-C and HIV screening - Hematology-Oncology consulted # iron deficiency anemia - no previous CBC for comparison - significant low levels of iron - hemoglobin of 7 - will transfuse 1 unit of PRBC - is receiving iron transition in the ED - follow CBC - Hematology-Oncology is consulted for workup of anemia and other abnormalities the patient presented with # elevated D-dimer - CT angiogram negative for PE # hepatic splenomegaly/lymphadenopathy - concern for lymphoma -Hematology-Oncology consulted # sleep apnea - continue CPAP at bedtime DVT prophylaxis: SCDs
[2020-06-02 06:37] LABS: Anion Gap 12 (12-20); Blood Urea Nitrogen 17 mg/dL (9-16); Carbon Dioxide 27 mmol/L (22-29); Chloride 100 mmol/L (96-108); Creatinine Clr Calc Pharmacy 149.9; Estimated Glomerular Filt Rate > 60; Glucose Random 107 mg/dL (60-115); Potassium 4.1 mmol/l (3.3-5.1); Sodium 135 mmol/L (135-145)
--- NOTE | 2020-06-02 06:44 | PC.NURSE ---
[facility] called to give report rn will call back.
[2020-06-02 06:45] LABS: Mean Corpuscular Volume 62.2 fL (80-98); PLT ABN DIST 1
[2020-06-02 06:57] LABS: HIV AB/AG Nonreactive (Nonreactive); HIV Num 1 0.09 S/CO (0.00-0.99)
[2020-06-02 07:04] LABS: ~HepC Num1 0.14 S/CO (0.00-0.79); ~Hepatitis C Antibody Nonreactive (Nonreactive)
--- NOTE | 2020-06-02 07:07 | PC.NURSE ---
report given to c rn august. pt sitting in bed on cpap, nad. awaiting inpt tranfer for admission.
[2020-06-02 07:27] LABS: SLIDE REVIEW VERIFIED
--- NOTE | 2020-06-02 08:47 | P.DS_ITS ---
DS: Providers Provider Date of Service: 06/03/20 Date of admission: 06/01/20 23:49 Primary care physician: Unknown Physician Consults: 06/02/20 06:38 Consult to Hematology / Oncology Routine Consulting Provider: Peace Villalobos Reason for consultation: lymphadenopathy, hepatosplenomegaly, concern for vasculitis Has provider been notified: No DS: Diagnosis Discharge Diagnosis (1) Hematoma of ear, left: Status: Acute (2) Ear hematoma, right: Status: Acute (3) HTN (hypertension): Status: Acute (4) Sleep apnea: Status: Acute (5) Cocaine use: Status: Acute (6) Iron deficiency anemia: Status: Acute (7) Hepatosplenomegaly: Status: Acute (8) Lymphadenopathy: Status: Acute (9) Coagulopathy: Status: Acute (10) Elevated d-dimer: Status: Acute DS: Medications Discharge Medications Home Medications: Home Medications Medication Instructions Recorded Confirmed No Known Home Meds 06/01/20 06/01/20 DS: Summary Hospital Course Hospital Course: HPI from admission 44-year-old male with past medical history of hypertension, sleep apnea who presents to the hospital with complaints of b/l earlobe skin changes. Patient reports that he noticed his ears change in color for 1-2 days, and decided to come to the ED for further evaluation.He otherwise denies any headache, change in vision, no chest pain, no shortness of breath, no abdominal pain, nausea or vomiting, no dizziness, no weakness, no lower extremity edema. No diarrhea constipation. No urinary symptoms. Vitals on arrival are significant for a temp of a 100.3?, heart rate of 120, respiratory rate of 20, blood pressure of 114/59 Labs of note hemoglobin of 7.1, hematocrit 25.6, MCV of 59.8, PT of 19.5, INR of 1.6,PTT 61, he has a fibrinogen level of more than 700, D-dimer of 3841, sodium of 132, iron of 8, UA negative, UDS positive for cocaine, COVID-19 negative, CT angiogram of the chest shows no large central pulmonary emboli although very limited study. Abdominal CT shows marked hepatocellularmegaly, retroperitoneal lymphadenopathy, possibly secondary to lymphoma. While in the ED was placed on BiPAP machine given his history of sleep apnea with no evidence of hypercapnia or resp acidosis Hospital course 44-year-old male morbidly obese with cocaine abuse admitted with b/l ear lobe gangrene found to hepato splenomegaly and retroperitoneal lymphadenopathy with concern for lymphoma and significant anemia, lower extremity duplex study shows possible bilateral peroneal artery occlusion, patient found to have hemoglobin of 7, patient received 2 units of PRBC, hematology was consulted reconciled likely lymphoma and recommended starting on heparin drip for possible peroneal artery thrombus and gangrene and given significantly elevated PTT , hematology recommended anti Xa monitoring while on heparin drip, Diiscussed with Hematology at [facility] dr Choudhary , patient washemodynamically stable and transferred to [facility] and will be started on heparin drip and will require anti Xa monitoring at [facility] For anemia patient received 2 units of PRBCs hemoglobin improved from 7-7.7, patient will likely need GI consultation and EGD on transfer Time Spent with Patient Time attestation: Total time spent providing and/or coordinating discharge services: Discharge coordination time: Greater than 30 minutes Physical Exam Vital Signs: Vital Signs: Last Vital Signs Temp 98.8 F 06/02/20 07:36 Pulse 123 H 06/02/20 07:36 Resp 31 H 06/02/20 07:11 BP 143/73 H 06/02/20 07:36 Pulse Ox 99 06/02/20 07:36 Body Mass Index 39.5 DS: Data Data Completed and Pending Labs on day of discharge: Laboratory Tests 06/01/20 06/01/20 06/01/20 15:48 15:48 15:48 WBC 6.3 RBC 4.28 L Hgb 7.1 L Hct 25.6 L MCV 59.8 L MCH 16.6 L MCHC 27.7 L RDW 18.9 H Plt Count 218 MPV Not Reportable Immature Gran % (Auto) Cancelled Neut % (Auto) Cancelled Lymph % (Auto) Cancelled [place] % (Auto) Cancelled Eos % (Auto) Cancelled Baso % (Auto) Cancelled Lymph # (Auto) Cancelled [place] # (Auto) Cancelled Eos # (Auto) Cancelled Baso # (Auto) Cancelled Abs Immat Gran (auto) Cancelled Absolute Neuts (auto) Cancelled Absolute Nucleated RBC 0.040 H Nucleated RBC % (auto) 0.6 H Neutrophils % (Manual) 84 H Band Neutrophils % 0 L Lymphocytes % (Manual) 12 L Monocytes % (Manual) 3 Eosinophils % (Manual) 1 Abs Neuts (Manual) 5.3 Lymphocytes # (Manual) 0.8 Monocytes # (Manual) 0.2 Eosinophils # (Manual) 0.1 Platelet Estimate NORMAL Large Platelets PRESENT Plt Morphology Comment NOTED RBC Morphology NOTED Polychromasia 1+ Hypochromasia 2+ Microcytosis 3+ Tear Drop Cells 2+ Ovalocytes 1+ Smear Tech's Comments Absolute Retic Percent Retic Immature Retic Fraction Retic Hgb Equivalent Hold Purple Top SEE NOTE PT 19.5 H INR 1.6 H APTT Fibrinogen D-Dimer ABG pH ABG pCO2 ABG pO2 ABG HCO3 ABG O2 Saturation ABG Base Excess Oxygen Given Sodium Potassium Chloride Carbon Dioxide Anion Gap BUN Creatinine Estim Creat Clear Calc Estimated GFR Random Glucose Lactic Acid Calcium Magnesium Iron TIBC % Saturation Unsat Iron Binding Total Bilirubin Direct Bilirubin AST ALT Alkaline Phosphatase Lactate Dehydrogenase Troponin I High Sens B-Natriuretic Peptide Total Protein Albumin Urine Color Urine Appearance Urine pH Ur Specific [place] Urine Protein Urine Glucose (UA) Urine Ketones Urine Blood Urine Nitrite Ur Leukocyte Esterase Urine RBC Urine WBC Ur Squamous Epith Cells Urine Bacteria Urine Opiates Screen Ur Barbiturates Screen Ur Phencyclidine Scrn Ur Amphetamines Screen U Benzodiazepines Scrn Urine Cocaine Screen U Marijuana (THC) Screen Ethyl Alcohol Rheumatoid Factor Coronavirus (PCR) Hepatitis C Ab (EIA) HIV 1&2 Ab/P24 Ag 4thGn Influenza Type A (PCR) Influenza Type B (PCR) RSV RNA Qual (PCR) Blood Type Antibody Screen Crossmatch 06/01/20 06/01/20 06/01/20 15:49 15:50 16:24 WBC RBC Hgb Hct MCV MCH MCHC RDW Plt Count MPV Immature Gran % (Auto) Neut % (Auto) Lymph % (Auto) [place] % (Auto) Eos % (Auto) Baso % (Auto) Lymph # (Auto) [place] # (Auto) Eos # (Auto) Baso # (Auto) Abs Immat Gran (auto) Absolute Neuts (auto) Absolute Nucleated RBC Nucleated RBC % (auto) Neutrophils % (Manual) Band Neutrophils % Lymphocytes % (Manual) Monocytes % (Manual) Eosinophils % (Manual) Abs Neuts (Manual) Lymphocytes # (Manual) Monocytes # (Manual) Eosinophils # (Manual) Platelet Estimate Large Platelets Plt Morphology Comment RBC Morphology Polychromasia Hypochromasia Microcytosis Tear Drop Cells Ovalocytes Smear Tech's Comments Absolute Retic Percent Retic Immature Retic Fraction Retic Hgb Equivalent Hold Purple Top PT INR APTT Fibrinogen D-Dimer ABG pH ABG pCO2 ABG pO2 ABG HCO3 ABG O2 Saturation ABG Base Excess Oxygen Given Sodium 132 L Potassium 4.0 Chloride 100 Carbon Dioxide 24 Anion Gap 12 BUN 15 Creatinine 1.01 Estim Creat Clear Calc 136.5 Estimated GFR > 60 Random Glucose 108 Lactic Acid Calcium 8.1 L Magnesium 1.9 Iron TIBC % Saturation Unsat Iron Binding Total Bilirubin 1.3 H Direct Bilirubin 0.8 H AST 25 ALT < 6 Alkaline Phosphatase 78 Lactate Dehydrogenase Troponin I High Sens B-Natriuretic Peptide Total Protein 7.4 Albumin 3.3 L Urine Color Urine Appearance Urine pH Ur Specific [place] Urine Protein Urine Glucose (UA) Urine Ketones Urine Blood Urine Nitrite Ur Leukocyte Esterase Urine RBC Urine WBC Ur Squamous Epith Cells Urine Bacteria Urine Opiates Screen Ur Barbiturates Screen Ur Phencyclidine Scrn Ur Amphetamines Screen U Benzodiazepines Scrn Urine Cocaine Screen U Marijuana (THC) Screen Ethyl Alcohol Rheumatoid Factor Coronavirus (PCR) NEGATIVE Hepatitis C Ab (EIA) HIV 1&2 Ab/P24 Ag 4thGn Influenza Type A (PCR) NEGATIVE Influenza Type B (PCR) NEGATIVE RSV RNA Qual (PCR) NEGATIVE Blood Type O Negative Antibody Screen NEGATIVE Crossmatch See Detail 06/01/20 06/01/20 06/01/20 16:25 16:26 19:55 WBC RBC Hgb Hct MCV MCH MCHC RDW Plt Count MPV Immature Gran % (Auto) Neut % (Auto) Lymph % (Auto) [place] % (Auto) Eos % (Auto) Baso % (Auto) Lymph # (Auto) [place] # (Auto) Eos # (Auto) Baso # (Auto) Abs Immat Gran (auto) Absolute Neuts (auto) Absolute Nucleated RBC Nucleated RBC % (auto) Neutrophils % (Manual) Band Neutrophils % Lymphocytes % (Manual) Monocytes % (Manual) Eosinophils % (Manual) Abs Neuts (Manual) Lymphocytes # (Manual) Monocytes # (Manual) Eosinophils # (Manual) Platelet Estimate Large Platelets Plt Morphology Comment RBC Morphology Polychromasia Hypochromasia Microcytosis Tear Drop Cells Ovalocytes Smear Tech's Comments Absolute Retic Percent Retic Immature Retic Fraction Retic Hgb Equivalent Hold Purple Top PT INR APTT Fibrinogen D-Dimer ABG pH ABG pCO2 ABG pO2 ABG HCO3 ABG O2 Saturation ABG Base Excess Oxygen Given Sodium Potassium Chloride Carbon Dioxide Anion Gap BUN Creatinine Estim Creat Clear Calc Estimated GFR Random Glucose Lactic Acid 1.7 Calcium Magnesium Iron 8 L TIBC 262 % Saturation 3 L Unsat Iron Binding 254 Total Bilirubin Direct Bilirubin AST ALT Alkaline Phosphatase Lactate Dehydrogenase 264 Troponin I High Sens B-Natriuretic Peptide Total Protein Albumin Urine Color YELLOW Urine Appearance CLEAR Urine pH 6.0 Ur Specific [place] 1.020 Urine Protein TRACE Urine Glucose (UA) NEG Urine Ketones NEG Urine Blood 1+ H Urine Nitrite NEG Ur Leukocyte Esterase NEG Urine RBC 5-9 H Urine WBC 0 Ur Squamous Epith Cells 1+ Urine Bacteria NONE Urine Opiates Screen Ur Barbiturates Screen Ur Phencyclidine Scrn Ur Amphetamines Screen U Benzodiazepines Scrn Urine Cocaine Screen U Marijuana (THC) Screen Ethyl Alcohol Rheumatoid Factor Coronavirus (PCR) Hepatitis C Ab (EIA) HIV 1&2 Ab/P24 Ag 4thGn Influenza Type A (PCR) Influenza Type B (PCR) RSV RNA Qual (PCR) Blood Type Antibody Screen Crossmatch 06/01/20 06/01/20 06/01/20 19:55 20:23 20:23 WBC RBC Hgb Hct MCV MCH MCHC RDW Plt Count MPV Immature Gran % (Auto) Neut % (Auto) Lymph % (Auto) [place] % (Auto) Eos % (Auto) Baso % (Auto) Lymph # (Auto) [place] # (Auto) Eos # (Auto) Baso # (Auto) Abs Immat Gran (auto) Absolute Neuts (auto) Absolute Nucleated RBC Nucleated RBC % (auto) Neutrophils % (Manual) Band Neutrophils % Lymphocytes % (Manual) Monocytes % (Manual) Eosinophils % (Manual) Abs Neuts (Manual) Lymphocytes # (Manual) Monocytes # (Manual) Eosinophils # (Manual) Platelet Estimate Large Platelets Plt Morphology Comment RBC Morphology Polychromasia Hypochromasia Microcytosis Tear Drop Cells Ovalocytes Smear Tech's Comments Absolute Retic Percent Retic Immature Retic Fraction Retic Hgb Equivalent Hold Purple Top PT INR APTT 61.1 H* Fibrinogen > 700 H D-Dimer 3841 ABG pH ABG pCO2 ABG pO2 ABG HCO3 ABG O2 Saturation ABG Base Excess Oxygen Given Sodium Potassium Chloride Carbon Dioxide Anion Gap BUN Creatinine Estim Creat Clear Calc Estimated GFR Random Glucose Lactic Acid Calcium Magnesium Iron TIBC % Saturation Unsat Iron Binding Total Bilirubin Direct Bilirubin AST ALT Alkaline Phosphatase Lactate Dehydrogenase Troponin I High Sens B-Natriuretic Peptide 56 Total Protein Albumin Urine Color Urine Appearance Urine pH Ur Specific [place] Urine Protein Urine Glucose (UA) Urine Ketones Urine Blood Urine Nitrite Ur Leukocyte Esterase Urine RBC Urine WBC Ur Squamous Epith Cells Urine Bacteria Urine Opiates Screen Not Detected Ur Barbiturates Screen Not Detected Ur Phencyclidine Scrn Not Detected Ur Amphetamines Screen Not Detected U Benzodiazepines Scrn Not Detected Urine Cocaine Screen POSITIVE H U Marijuana (THC) Screen Not Detected Ethyl Alcohol Rheumatoid Factor Coronavirus (PCR) Hepatitis C Ab (EIA) HIV 1&2 Ab/P24 Ag 4thGn Influenza Type A (PCR) Influenza Type B (PCR) RSV RNA Qual (PCR) Blood Type Antibody Screen Crossmatch 06/01/20 06/01/20 06/01/20 20:23 20:23 20:23 WBC RBC Hgb Hct MCV MCH MCHC RDW Plt Count MPV Immature Gran % (Auto) Neut % (Auto) Lymph % (Auto) [place] % (Auto) Eos % (Auto) Baso % (Auto) Lymph # (Auto) [place] # (Auto) Eos # (Auto) Baso # (Auto) Abs Immat Gran (auto) Absolute Neuts (auto) Absolute Nucleated RBC Nucleated RBC % (auto) Neutrophils % (Manual) Band Neutrophils % Lymphocytes % (Manual) Monocytes % (Manual) Eosinophils % (Manual) Abs Neuts (Manual) Lymphocytes # (Manual) Monocytes # (Manual) Eosinophils # (Manual) Platelet Estimate Large Platelets Plt Morphology Comment RBC Morphology Polychromasia Hypochromasia Microcytosis Tear Drop Cells Ovalocytes Smear Tech's Comments Absolute Retic 0.043 Percent Retic 0.9 Immature Retic Fraction 17.2 H Retic Hgb Equivalent 14.7 L Hold Purple Top PT INR APTT Fibrinogen D-Dimer ABG pH ABG pCO2 ABG pO2 ABG HCO3 ABG O2 Saturation ABG Base Excess Oxygen Given Sodium Potassium Chloride Carbon Dioxide Anion Gap BUN Creatinine Estim Creat Clear Calc Estimated GFR Random Glucose Lactic Acid Calcium Magnesium Iron TIBC % Saturation Unsat Iron Binding Total Bilirubin Direct Bilirubin AST ALT Alkaline Phosphatase Lactate Dehydrogenase Troponin I High Sens 7.4 B-Natriuretic Peptide Total Protein Albumin Urine Color Urine Appearance Urine pH Ur Specific [place] Urine Protein Urine Glucose (UA) Urine Ketones Urine Blood Urine Nitrite Ur Leukocyte Esterase Urine RBC Urine WBC Ur Squamous Epith Cells Urine Bacteria Urine Opiates Screen Ur Barbiturates Screen Ur Phencyclidine Scrn Ur Amphetamines Screen U Benzodiazepines Scrn Urine Cocaine Screen U Marijuana (THC) Screen Ethyl Alcohol < 10 Rheumatoid Factor Coronavirus (PCR) Hepatitis C Ab (EIA) HIV 1&2 Ab/P24 Ag 4thGn Influenza Type A (PCR) Influenza Type B (PCR) RSV RNA Qual (PCR) Blood Type Antibody Screen Crossmatch 06/01/20 06/01/20 06/02/20 20:23 23:11 05:44 WBC RBC Hgb Hct MCV MCH MCHC RDW Plt Count MPV Immature Gran % (Auto) Neut % (Auto) Lymph % (Auto) [place] % (Auto) Eos % (Auto) Baso % (Auto) Lymph # (Auto) [place] # (Auto) Eos # (Auto) Baso # (Auto) Abs Immat Gran (auto) Absolute Neuts (auto) Absolute Nucleated RBC Nucleated RBC % (auto) Neutrophils % (Manual) Band Neutrophils % Lymphocytes % (Manual) Monocytes % (Manual) Eosinophils % (Manual) Abs Neuts (Manual) Lymphocytes # (Manual) Monocytes # (Manual) Eosinophils # (Manual) Platelet Estimate Large Platelets Plt Morphology Comment RBC Morphology Polychromasia Hypochromasia Microcytosis Tear Drop Cells Ovalocytes Smear Tech's Comments Absolute Retic Percent Retic Immature Retic Fraction Retic Hgb Equivalent Hold Purple Top PT INR APTT Fibrinogen D-Dimer ABG pH 7.46 H ABG pCO2 34 ABG pO2 144 H ABG HCO3 24 ABG O2 Saturation 99.0 ABG Base Excess 1.3 Oxygen Given 30% Sodium Potassium Chloride Carbon Dioxide Anion Gap BUN Creatinine Estim Creat Clear Calc Estimated GFR Random Glucose Lactic Acid Calcium Magnesium Iron TIBC % Saturation Unsat Iron Binding Total Bilirubin Direct Bilirubin AST ALT Alkaline Phosphatase Lactate Dehydrogenase Troponin I High Sens B-Natriuretic Peptide Total Protein Albumin Urine Color Urine Appearance Urine pH Ur Specific [place] Urine Protein Urine Glucose (UA) Urine Ketones Urine Blood Urine Nitrite Ur Leukocyte Esterase Urine RBC Urine WBC Ur Squamous Epith Cells Urine Bacteria Urine Opiates Screen Ur Barbiturates Screen Ur Phencyclidine Scrn Ur Amphetamines Screen U Benzodiazepines Scrn Urine Cocaine Screen U Marijuana (THC) Screen Ethyl Alcohol Rheumatoid Factor < 15.0 Coronavirus (PCR) Hepatitis C Ab (EIA) Nonreactive HIV 1&2 Ab/P24 Ag 4thGn Influenza Type A (PCR) Influenza Type B (PCR) RSV RNA Qual (PCR) Blood Type Antibody Screen Crossmatch 06/02/20 06/02/20 06/02/20 05:44 05:44 05:44 WBC 6.2 RBC 4.39 L Hgb 7.7 L Hct 27.3 L MCV 62.2 L MCH 17.5 L MCHC 28.2 L RDW 21.7 H Plt Count 199 MPV Not Reportable Immature Gran % (Auto) 0.5 H Neut % (Auto) 85.9 H Lymph % (Auto) 9.8 L [place] % (Auto) 3.5 Eos % (Auto) 0.0 Baso % (Auto) 0.3 Lymph # (Auto) 0.6 L [place] # (Auto) 0.2 Eos # (Auto) 0.0 Baso # (Auto) 0.0 Abs Immat Gran (auto) 0.03 Absolute Neuts (auto) 5.4 Absolute Nucleated RBC 0.000 Nucleated RBC % (auto) 0.0 Neutrophils % (Manual) Band Neutrophils % Lymphocytes % (Manual) Monocytes % (Manual) Eosinophils % (Manual) Abs Neuts (Manual) Lymphocytes # (Manual) Monocytes # (Manual) Eosinophils # (Manual) Platelet Estimate Large Platelets Plt Morphology Comment RBC Morphology Polychromasia Hypochromasia Microcytosis Tear Drop Cells Ovalocytes Smear Tech's Comments VERIFIED Absolute Retic Percent Retic Immature Retic Fraction Retic Hgb Equivalent Hold Purple Top PT INR APTT Fibrinogen D-Dimer ABG pH ABG pCO2 ABG pO2 ABG HCO3 ABG O2 Saturation ABG Base Excess Oxygen Given Sodium 135 Potassium 4.1 Chloride 100 Carbon Dioxide 27 Anion Gap 12 BUN 17 H Creatinine 0.92 Estim Creat Clear Calc 149.9 Estimated GFR > 60 Random Glucose 107 Lactic Acid Calcium 8.0 L Magnesium Iron TIBC % Saturation Unsat Iron Binding Total Bilirubin Direct Bilirubin AST ALT Alkaline Phosphatase Lactate Dehydrogenase Troponin I High Sens B-Natriuretic Peptide Total Protein Albumin Urine Color Urine Appearance Urine pH Ur Specific [place] Urine Protein Urine Glucose (UA) Urine Ketones Urine Blood Urine Nitrite Ur Leukocyte Esterase Urine RBC Urine WBC Ur Squamous Epith Cells Urine Bacteria Urine Opiates Screen Ur Barbiturates Screen Ur Phencyclidine Scrn Ur Amphetamines Screen U Benzodiazepines Scrn Urine Cocaine Screen U Marijuana (THC) Screen Ethyl Alcohol Rheumatoid Factor Coronavirus (PCR) Hepatitis C Ab (EIA) HIV 1&2 Ab/P24 Ag 4thGn Nonreactive Influenza Type A (PCR) Influenza Type B (PCR) RSV RNA Qual (PCR) Blood Type Antibody Screen Crossmatch Discharge Plan Discharge Anticipated Discharge Date/Time: 06/02/20 08:43 Patient Disposition: Xfer Acute [facility] Referrals: Physician,Unknown [Primary Care Provider] - Discharge Medications: No Action No Known Home Meds RF: 0 Discharge Orders: Discharge Order (Routine); Ordered 06/02/20 Ordered By: Jorge Lehman Activity on Discharge: As tolerated Patient Instructions: Anemia (ED), [place] (ED) Discharge Date/Time: 06/02/20 14:36 Other Ambulatory Orders: Add Laboratory Test (Routine) Timeframe: 1 Day Facility: [facility] - Location: Laboratory Ordered By: Paece Villalobos Visit Report Forms: Patient Portal Discharge page Care Plan Goals: transfer to [facility] for further monitoring Health Concerns: lymphoma coagulaopathy Plan of Treatment: transfer to [facility] for further monitoring
--- NOTE | 2020-06-02 08:54 | MHC.CM.PN ---
pt being transferrred to [facility]
[2020-06-02 08:57] LABS: INTERNATIONAL NORM RATIO 1.5 (0.9-1.1); Prothrombin Time 18.1 SEC (10.8-13.0)
[2020-06-02 09:00] LABS: Partial Thromboplastin Time 55.4 SEC (24.1-38.0)
[2020-06-02 09:01] LABS: Fibrinogen > 700 MG/DL (259-690)
--- NOTE | 2020-06-02 09:46 | PM.HEMONCCN ---
Subjective - Subjective Chief complaint: Erythema of ears and toes Patient: new to practice Consult date: 06/02/20 Requesting Physician: Dr. Lehman Primary Care Provider: Unknown Physician HPI - Consult Narrative Reason for consult: Severe anemia and lymphadenopathy Narrative: Jose Miguel Balderrama Jr is a 44 year old male who presented to the emergency department yesterday with complaints of swelling and redness of both his ears. He is somewhat vague about onset of symptoms but states that he noticed it for about 2 days. He denies any trauma and there is no associated pain. He has black spots on his toes as well but feels that it is related to stubbing his toe on some furniture. He denies fever, chills, night sweats or weight loss. He has chronic swelling of both his legs. He denies change in bowel habits, diarrhea, hematochezia or melena. No heartburn or reflux symptoms, no hematemesis. He has chronic shortness of breath and has been diagnosed with sleep apnea. He does not have CPAP machine at home. He denies any headache or dizziness. Patient had a low-grade temperature on arrival to ED, he was tachycardic and tachypneic. Blood work showed severe anemia with a hemoglobin of 7.1 gram/dL, iron deficiency and coagulopathy. Fibrinogen level however more than 700. CT angiogram was negative for pulmonary embolism. CT abdomen / pelvis was significant for hepatosplenomegaly and retroperitoneal lymphadenopathy. COVID-19 rapid antigen test was negative. Patient was transfused 2 units PRBC and admitted for further workup. Review of Systems - Constitutional Reports as per HPI, Reports system reviewed and no additional complaints, except as documented - Cardiovascular Reports leg swelling, Denies chest pain - Respiratory Reports dyspnea - Gastrointestinal Denies abdominal pain, Denies change in bowel habits - Integumentary/Breasts Skin/Breast: Reports as per HPI, Reports change in skin color PMFSH Medical History: Medical History (Last Reviewed 06/02/20 @ 06:23 by Arabella Lucero MD) Allergies HTN (hypertension) Smoking status: Never smoker Home Medications and Allergies Current Medications: Current Medications Generic Name Dose Route Start Last Admin Trade Name Freq PRN Reason Stop Dose Admin Acetaminophen 650 mg 06/01/20 19:46 Acetaminophen 325 Mg Tablet PO Q4H PRN Fever Acetaminophen 650 mg 06/01/20 23:49 Acetaminophen 325 Mg Tablet PO Q6H PRN Pain, Mild (Pain Scale 1-3) Docusate Sodium 100 mg 06/01/20 23:49 Docusate Sodium 100 Mg Capsule PO DAILY PRN Constipation Sodium Chloride 1,000 mls @ 80 mls/hr 06/02/20 09:00 Ns IVCONT .[id number] [facility] Ondansetron HCl 4 mg 06/01/20 23:49 Ondansetron Hcl 4 Mg/2 Ml Vial IVPUSH Q8H PRN Nausea and Vomiting Pharmacy Consult 1 each 06/01/20 19:01 Consult Rx Perform Med Rec MISCELLANE ONCE PRN Consult order Sodium Chloride 3 ml 06/02/20 00:00 06/02/20 09:24 0.9 % Sodium Chloride Flush 3 Ml Syringe IVFLUSH 3 ml [facility] Administration Home Medications Medication Instructions Recorded Confirmed Type No Known Home Meds 06/01/20 06/01/20 History Allergies Allergy/AdvReac Type Severity Reaction Status Date / Time No Known Allergies Allergy Verified 06/01/20 15:37 Physical Exam Vital signs: Vital Signs Temp 98.8 F 06/02/20 07:36 Pulse 123 H 06/02/20 07:36 Resp 31 H 06/02/20 07:11 BP 143/73 H 06/02/20 07:36 Pulse Ox 99 06/02/20 07:36 Intake & Output 06/01/20 06/02/20 06/02/20 18:59 06:59 18:59 Intake Total 278 / 760 482 / 760 210.5 / 210.5 Output Total 600 / 600 Balance 278 / 160 -118 / 160 210.5 / 210.5 Urine Output (Average ml/kg/hr) 0.37 0.37 Intake: Intake, Oral Amount 0 / 0 Intake (Blood Product) Amount 278 / 560 282 / 560 Red Blood Cells Aph (E0685) 278 / 278 Unit [id number] Red Blood Cells Aph (E0686) 282 / 282 Unit [id number] Intake, Other Amount 100 / 100 Red Blood Cells Aph (E0686) 100 / 100 Unit [id number] Intake, IV Amount 100 / 100 210.5 / 210.5 Phytonadione (Vit K1) 5 mg In 0 50.5 / 50.5 .9 % Sodium Chloride 50 ml @ 50 .5 mls/hr IV ONCE ONE Rx#: [id number] Sodium Ferric Gluconat/Sucrose 110 / 110 125 mg In 0.9 % Sodium Chloride 100 ml @ 100 mls/hr IV ONCE ONE Rx#:[id number] cefTRIAXone sodium 2 gm In 0.9 50 / 50 % Sodium Chloride 50 ml @ 100 mls/hr IV ONCE ONE Rx#: [id number] 0.9 % Sodium Chloride 1,000 ml 100 / 100 @ 999 mls/hr IVCONT .Q1H1M [place] Rx#:[id number] Output: Output, Urine Amount 600 / 600 Other: Meal Refused Yes NPO Yes Breakfast % Eaten 0% Urine Urinal Urine Color Yellow Weight 136.078 kg Weight 136.078 kg - Constitutional Present: mild distress, obese - Routine HEENT Exam Head: Present: facial swelling Eye: Present: EOMI ENT: Present: mucous membranes dry Comments: Both ears, especially left show significant swelling with deep purple discoloration. - Routine Neck Exam Present: supple. Absent: swelling - Routine Respiratory Exam Present: decreased breath sounds. Absent: respiratory distress - Routine Cardiovascular Exam Cardiovascular: Present: S1, S2 - Routine Abdominal Exam Present: soft. Absent: tenderness - Routine Extremities Exam Present: pulses intact Comments: Both legs swollen with chronic stasis changes, erythema of both shins. Right great toe with purplish discoloration. Nontender to palpation. Hem/Onc Consult Result - Labs CBC & Chem 7: 06/02/20 11:49 06/02/20 05:44 Labs: Short CBC 06/01/20 06/02/20 Range/Units 15:48 05:44 WBC 6.3 6.2 (4.8-10.8) X10*3/uL Hgb 7.1 L 7.7 L (14.0-18.0) g/dl Hct 25.6 L 27.3 L (42-52) % Plt Count 218 199 (160-400) X10*3/uL BMP 06/01/20 06/02/20 15:49 05:44 Sodium 132 L 135 Potassium 4.0 4.1 Chloride 100 100 Carbon Dioxide 24 27 BUN 15 17 H Creatinine 1.01 0.92 Calcium 8.1 L 8.0 L Liver Function 06/01/20 Range/Units 15:49 Total Bilirubin 1.3 H (0.0-1.0) mg/dL Direct Bilirubin 0.8 H (0.0-0.5) mg/dL AST 25 (5-37) U/L ALT < 6 (0-40) U/L Alkaline Phosphatase 78 (39-117) U/L Albumin 3.3 L (3.5-5.0) g/dL Urine 06/01/20 Range/Units 19:55 Urine Color YELLOW Urine Appearance CLEAR Urine pH 6.0 (5.0-8.0) Ur Specific [place] 1.020 (1.005-1.025) Urine Protein TRACE (NEG-TRACE) MG/DL Urine Glucose (UA) NEG (NEG) MG/DL - Imaging CT scan - abdomen Radiologist's impression: ITS Impressions Head CT 06/01/20 16:06 IMPRESSION: No acute intracranial pathology. Abdomen/Pelvis CT 06/01/20 19:23 IMPRESSION: 1. Marked hepatosplenomegaly. 2. Retroperitoneal lymphadenopathy. 3. These findings suggests entities such as lymphoma. The retroperitoneal lymph nodes would be amenable to image guided biopsy should this be needed. 4. Incidentally noted multiple nonobstructing left renal calculi, colonic diverticulosis left inguinal hernia and cholelithiasis. This critical result was discussed with Dr. Miller at 11:00 PM on the day the exam and it was ascertained that the content and urgency of the report was understood at the time of direct communication. Chest CTA 06/01/20 19:23 IMPRESSION: Very limited study. No large central pulmonary emboli are seen. Diagnosis of more distal disease would be difficult in this case. If desired, exam could be repeated without the low-dose technique. This critical result was discussed with Dr. Miller at 11:00 PM on the day the exam and it was ascertained that the content and urgency of the report was understood at the time of direct communication. VTE: Negative but extremely limited. Duplex Scan Lower Extremity Artery 06/01/20 19:23 IMPRESSION: -Visualized portions of the bilateral lower extremity deep arterial systems are patent. - Neither peroneal artery was clearly visualized. This may be due to patient body habitus and overlying subcutaneous edema, however, it is possible both of these arteries are occluded. Clinical correlation recommended. Assessment and Plan (1) Lymphadenopathy Status: Acute 1. This is a 44-year-old male presenting with hepatosplenomegaly, lymphadenopathy severe iron deficiency anemia as well as coagulopathy. This is worrisome for malignancy related DIC/coagulopathy. Skin changes on his ears and toes are worrisome for vasculitic/thrombotic process. Lower extremity Doppler showed both peroneal veins to be occluded but the study was limited. Further assessment CTA abdomen runoff has been recommended. Severe iron deficiency anemia raises the possibility of GI bleeding. Although he does not have any overt symptoms it would be prudent to perform EGD/colonoscopy prior to anticoagulation. He will need FFP prior to procedure. He has been transfused 2 units PRBC. He has Abby test positivity and has had no response to 2 units PRBC. However, LDH and bilirubin is not elevated. IR guided biopsy of 1 of the lymph nodes can be performed for diagnosis. He may need anticoagulation with unfractionated heparin, in which case monitoring of anti Xa levels would have to be performed, [place] [facility] [place] Given the complexity of this case, he is being transferred to [facility] for further management. I have discussed the case with hematology attending at [facility]. I appreciate input from hospitalist and [facility] for kindly accepting patient.
[2020-06-02] MEDS: 0.9 % Sodium Chloride 1,000 ML 80 ML IVCONT (10:30)
--- NOTE | 2020-06-02 11:14 | PC.NURSE ---
Patient to be transferred to [facility] for further workup, One unit RBCs available to administer, MD order to wait on administering unit of RBCs until patient is transferred to [facility].
[2020-06-02 12:02] LABS: Hemoglobin 8.1 g/dl (14.0-18.0); NRBC Pct Auto 0.3 /100WBC (0.0-0.2)
[2020-06-02 12:04] LABS: Hematocrit 29.3 % (42-52); Mean Corpuscular HGB Conc 27.6 g/dl (31.0-36.0); Mean Corpuscular Hemoglobin 17.3 pg (27.0-33.0); PLT CLUMP 1; Red Blood Count 4.67 X10*6/uL (4.60-5.80); Red Cell Distribution Width 21.9 % (11.0-16.0)
[2020-06-02 12:06] LABS: Alanine Aminotransferase < 6 U/L (0-40); Albumin Level 3.1 g/dL (3.5-5.0); Alkaline Phosphatase 74 U/L (39-117); Aspartate Amino Transferase 22 U/L (5-37); Bilirubin Direct 0.7 mg/dL (0.0-0.5); Lactate Dehydrogenase 217 U/L (118-273)
[2020-06-02 12:09] LABS: Mean Corpuscular Volume 62.7 fL (80-98); PLT ABN DIST 1
[2020-06-02 12:30] LABS: White Blood Count 7.3 X10*3/uL (4.8-10.8)
[2020-06-02 12:31] LABS: Platelet Count 192 X10*3/uL (160-400)
[2020-06-02 14:22] LABS: Ferritin 297 ng/mL (20-250)
[2020-06-03 14:28] LABS: Myeloperoxidase Antibody 3.8 AI; Proteinase 3 PR3 Antibodies <1.0 AI
[2020-06-05 13:03] LABS: Complement C3 98 mg/dL (82-185)
[2020-06-05 13:46] LABS: DRVVT 1:1 Mix NOT CORRECTED (CORRECTED); DRVVT Confirmation POSITIVE (NEGATIVE); Hexagonal Phase Neutralization POSITIVE (NEGATIVE); PTT (LAC) Screen 61 sec (< OR = 40); Thrombin Clotting Time 14 sec (13-19)
[2020-06-05 14:12] LABS: Haptoglobin 338 mg/dL (43-212)
[2020-06-05 14:38] LABS: Anti DNA DS Antibody 6 IU/mL; Antibody to SS-A Antigen <1.0 NEG AI (<1.0 NEG); Antibody to SS-B Antigen <1.0 NEG AI (<1.0 NEG); SM/Ribonucleoprotein Ab <1.0 NEG AI (<1.0 NEG); Smith Protein <1.0 NEG AI (<1.0 NEG)
[2020-06-05 16:12] LABS: Anti Nuclear Antibody Pattern Nuclear, Homogeneous; Anti Nuclear Antibody Screen POSITIVE (NEGATIVE)
[2020-06-07 13:28] LABS: Complement Total CH50 35 U/mL (31-60)
[2020-06-08 05:32] LABS: Cryoglobulin, Qual Negative (Negative)
== END 2020-06-02 14:36 | disposition short-term general hospital (02) | DRG 691 ==
LOC: HO.ED 19:02 → HO.EDOVER 06-02 04:47 → HO.IMC 06-02 06:32
PROVIDERS: Internal Medicine; Nurse Practitioner Acute Care; Nurse Practitioner Family; Physician Assistant Medical; Admitting Provider Internal Medicine; Emergency Provider Emergency Medicine Emergency Medical Services; Visit Provider Internal Medicine
DX: C85.90 Non-Hodgkin lymphoma, unspecified, unspecified site (principal); I96 Gangrene, not elsewhere classified; I74.3 Embolism and thrombosis of arteries of the lower extremities; M79.81 Nontraumatic hematoma of soft tissue; E66.01 Morbid (severe) obesity due to excess calories; G47.30 Sleep apnea, unspecified; F14.10 Cocaine abuse, uncomplicated; Z20.828 Contact with and (suspected) exposure to other viral communicable diseases; Z99.89 Dependence on other enabling machines and devices; Z91.19 Patient's noncompliance with other medical treatment and regimen; Z91.14 Patient's other noncompliance with medication regimen; Z68.39 Body mass index [BMI] 39.0-39.9, adult
CPT/HCPCS: 0241U; 36415; 36430; 70450; 71275; 74177; 80048; 80076; 80307; 80320; 81001; 82595; 82728; 82803; 83010; 83540; 83605; 83615; 83735; 83880; 84484; 85007; 85025; 85027; 85045; 85379; 85384; 85597; 85610; 85613; 85730; 86021; 86038; 86039; 86160; 86162; 86225; 86235; 86431; 86803; 86850; 86880; 86900; 86901; 86920; 87040; 87389; 93925; 94660; 96361; 96365; 96367; 96375; 99285; 99291; J0696; J1940; J2916; J3430; P9016; Q9967

== ENCOUNTER 2021-05-02 23:03 | Inpatient (IN) | payer OTHER, SELFPAY ==
--- NOTE | ~2021-05-02 | CT_ITS ---
EXAMINATION: CT ANGIOGRAM OF THE CHEST WITH AND WITHOUT CONTRAST (CT PULMONARY ANGIOGRAM FOR PE) CLINICAL INFORMATION: Hypoxia. COMPARISON: 06/01/2020 TECHNIQUE: Prior to contrast administration, noncontrast localization images were obtained. Subsequently, multidetector volumetric imaging was performed from the thoracic inlet to below the diaphragms following the administration of 100 mL Omnipaque 350 intravenous contrast. No contrast reaction reported Sagittal, coronal, and MIP oblique sagittal reformatted images were obtained on the CT workstation, uploaded to PACS, and reviewed. This CT examination was performed using dose optimization techniques as appropriate, variously including the following: *Automated exposure control *Adjustment of mA and/or kV according to patient size (this includes techniques or standardized protocols for targeted exams where dose is matched to indication/reason for exam; i.e. extremities or head) *Use of iterative reconstruction technique Total exam dose-length product 659 mGy-cm FINDINGS: QUALITY OF STUDY/CONTRAST BOLUS: Suboptimal. There is motion on the study. There is also suboptimal bolus. PULMONARY ARTERIES: No central or segmental pulmonary emboli. Subsegmental branches are not evaluated well on this study. THORACIC AORTA: No aneurysm or dissection. LUNG: Motion limited evaluation. The central airways are patent. Patchy opacities are seen anteriorly in the left upper lobe. Minimal bibasilar atelectasis. Minimal additional patchy bibasilar opacities near the costophrenic angle medially. PLEURA: No pleural effusion or pneumothorax. MEDIASTINUM: Normal heart size. No pericardial effusion. No hilar or mediastinal lymphadenopathy. No evidence of septal bowing or right heart strain. CHEST WALL/AXILLA: No axillary or internal mammary lymphadenopathy. OSSEOUS STRUCTURES: No acute or suspicious osseous abnormality. UPPER ABDOMEN: Contracted gallbladder containing multiple stones. The spleen appears enlarged. No reflux of contrast into the hepatic veins to suggest elevated right heart pressures. CT/CT angio chest PE protocol IMPRESSION: Limited study. Motion limits the evaluation as well as suboptimal bolus. That said, there is no central or segmental pulmonary embolism. Scattered patchy opacities are seen in the lungs which may be infectious or inflammatory. VTE: negative
--- NOTE | ~2021-05-02 | XR_ITS ---
EXAMINATION: XR CHEST CLINICAL INFORMATION: Fever and shortness of breath COMPARISON: 06/01/2020 TECHNIQUE: Frontal view of the chest was obtained. FINDINGS: Cardiac leads overlie the chest. Central vascular prominence without overt edema. No dense consolidation. No effusion. No pneumothorax. The cardiomediastinal silhouette remains prominent. XR/XR chest 1V IMPRESSION: No consolidation. Central vascular prominence without overt edema.
--- NOTE | ~2021-05-02 | XR_ITS ---
EXAMINATION: XR FOOT, LEFT XR FOOT, RIGHT CLINICAL INFORMATION: Gangrene to feet. COMPARISON: None TECHNIQUE: 2 views of each foot. FINDINGS: Left foot: Patient positioning limits evaluation. There is extensive soft tissue swelling. No definite fractures are seen. Degenerative changes of the midfoot with osteophyte formation noted. No clear evidence of osseous erosion. Right foot: There is extensive soft tissue swelling. Multiple areas of ulceration, seen along the medial aspect of the foot near the metatarsophalangeal joint and along the lateral aspect of the first digit. No osseous erosion. No fracture is seen. Degenerative changes of the midfoot with spurring noted. XR/XR foot LT 2V IMPRESSION: Extensive soft tissue swelling of both feet. Evaluation limited due to patient positioning. No definite acute osseous abnormality. Midfoot degenerative changes bilaterally.
--- NOTE | ~2021-05-02 | XR_ITS ---
EXAMINATION: XR FOOT, LEFT XR FOOT, RIGHT CLINICAL INFORMATION: Gangrene to feet. COMPARISON: None TECHNIQUE: 2 views of each foot. FINDINGS: Left foot: Patient positioning limits evaluation. There is extensive soft tissue swelling. No definite fractures are seen. Degenerative changes of the midfoot with osteophyte formation noted. No clear evidence of osseous erosion. Right foot: There is extensive soft tissue swelling. Multiple areas of ulceration, seen along the medial aspect of the foot near the metatarsophalangeal joint and along the lateral aspect of the first digit. No osseous erosion. No fracture is seen. Degenerative changes of the midfoot with spurring noted. XR/XR foot RT 2V IMPRESSION: Extensive soft tissue swelling of both feet. Evaluation limited due to patient positioning. No definite acute osseous abnormality. Midfoot degenerative changes bilaterally.
--- NOTE | ~2021-05-02 | US_ITS ---
EXAMINATION: US ARTERIAL DOPPLER LOWER EXTREMITY, BILATERAL CLINICAL INFORMATION: Bilateral gangrene. COMPARISON: CT angiography of 05/03/2021 and arterial study of 06/01/2020. TECHNIQUE: Real-time ultrasound and Doppler techniques (integrating B-mode 2D vascular images, Doppler spectral analysis and color-flow Doppler imaging) were utilized to interrogate the lower extremity arterial systems bilaterally. FINDINGS: Examination is limited due to the patient's body habitus and edema and the inability to cooperate for imaging. RIGHT LOWER EXTREMITY: The common femoral artery has a biphasic waveform with peak systolic velocity of 165 cm/s. The profunda femoral artery was not evaluated. The proximal superficial femoral artery has a biphasic waveform with peak systolic velocity of 151 cm/s. The mid superficial femoral artery has a biphasic waveform with peak systolic velocity of 118 cm/s. The distal superficial femoral artery has a biphasic waveform with peak systolic velocity of 74 cm/s with some spectral broadening. The popliteal artery has a biphasic waveform with spectral broadening and velocity of approximately 55 cm/s. The peroneal artery has a monophasic waveform and peak systolic velocity of 38 cm/s. The posterior tibial artery has a biphasic waveform with peak systolic velocity of 107 cm/s. There is a large amount of edema present within the subcutaneous tissues. LEFT LOWER EXTREMITY: The common femoral artery has a biphasic waveform with peak systolic velocity of 166 cm/s. Profunda femoral artery was not evaluated. The proximal superficial femoral artery has a monophasic waveform with peak systolic velocity of 139 cm/s. Mid superficial femoral artery was not studied due to overlying bandage. Distal superficial femoral artery has a monophasic waveform with peak systolic velocity of 71 cm/s. Subcutaneous edema is present. The popliteal artery has a monophasic waveform with spectral broadening. Peak systolic velocity is 67 cm/s. The peroneal artery has a monophasic waveform with peak systolic velocity of 59 cm/s. The posterior tibial artery has a monophasic waveform with peak systolic velocity of 103 cm/s. Large amount of subcutaneous edema present. US/US arterial duplex LE BI IMPRESSION: Worsening of disease bilaterally compared to the previous study of 06/01/2020. Biphasic waveforms within the right lower extremity where previously there were triphasic waveforms present. Above finding may be related to an inflow stenosis. 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 Monophasic waveforms within the left lower extremity consistent with progression of hemodynamically significant stenosis, some of which appears be related to inflow abnormality and some related to superficial femoral artery disease. Above changes could be related to the patient's lymphadenopathy with inflammatory fat streaking in the inguinal regions.
--- NOTE | 2021-05-02 23:32 | ED.SOB ---
HPI - SOB/Dyspnea General Chief Complaint: Skin/Abscess/Foreign Body Stated Complaint: infection Time Seen by Provider: 05/02/21 23:32 Source: patient Mode of arrival: EMS Limitations: no limitations History of Present Illness HPI Narrative: Patient called ambulance of shortness of breath, patient with chronic draining leg wounds MD elicited complaint: shortness of breath Onset (ago): hour(s) Timing: constant Severity: severe Relieving factors: nothing Associated symptoms: fever and lower extremity pain Related Data Home Medications Medication Instructions Recorded Confirmed No Known Home Meds 06/01/20 06/01/20 Allergies Allergy/AdvReac Type Severity Reaction Status Date / Time No Known Allergies Allergy Verified 06/01/20 15:37 Review of Systems Constitutional: Constitutional: Reports no additional constitutional complaints Eyes: Eyes: Reports no additional eye complaints ENT: Denies dizziness Cardiovascular: Cardiovascular: Reports no additional cardiovascular complaints Respiratory: Respiratory: Reports as per HPI Gastrointestinal: Gastrointestinal: Reports no additional gastrointestinal complaints Musculoskeletal: Musculoskeletal: Reports no additional musculoskeletal complaints Integumentary/Breasts: Skin/Breast: Denies rash Neurologic: Reports system reviewed and no additional complaints, except as documented, Denies dizziness and Denies Sensory deficit (Neuro) Psychiatric: Psychiatric: Denies anxiety PMFSH Past Medical History Medical History Allergies HTN (hypertension) Social History Social History Household Members: Family Housing: House Do you presently have visiting nurse or other home services: No Alcohol intake: former Patient Tobacco Use Status: Never used Tobacco Second Hand Smoke Exposure: No Use of substances other than those prescribed or required for medical reasons: Unknown Substance Use Type: Crack/Cocaine and Marijuana Advance Directives: No Advance Directives Information Provided: Yes Physical Exam Vital Signs: Vital Signs: Last Vital Signs Temp 99.3 F 05/03/21 05:36 Pulse 113 H 05/03/21 05:36 Resp 26 H 05/03/21 05:36 BP 114/53 L 05/03/21 05:36 Pulse Ox 95 05/03/21 05:36 Oxygen Flow Rate 14 05/02/21 23:45 BMI result Body Mass Index 49.2 Const: Other: Morbidly obese male lethargic arousable to verbal stimuli very short of breath Orientation/consciousness: oriented to person Limitations: no limitations HENMT: Head: Yes normal to inspection Ears: external ears normal General nose exam: Normal external nose present Mouth: Normal oral and palatal mucosa present and oropharynx normal Throat: Yes posterior oropharynx normal Eyes: General: appearance normal, both eyes and all related structures Neck: Other: supple Neck: Yes normal visual inspection Chest: Chest palpation & inspection: normal inspection of the chest Resp: Auscultation: clear to auscultation bilaterally Cardio: Jugular venous distension: no JVD Rate: regular rate Rhythm: regular rhythm Heart sounds: S1 normal heart sound present and S2 normal heart sound present GI: Inspection: Yes normal to inspection Palpation (GI): Soft to palpation, nontender and No hepatosplenomegaly present Auscultation: normal bowel sounds : General: Yes no CVA tenderness Back/Spine/Pelvis: Back: no CVA tenderness Skin: Other: bilateral foot gangrene with ulcerations of legs, foul smelling Neuro: General: oriented to person Cranial nerves: Yes CN's II-XII intact bilaterally Motor exam (neuro): 5/5 motor strength present throughout Sensory Exam: No Sensory deficit (Neuro) Extrem: Other: 3+ edema bilaterally, good DP bilaterally Psych: Appearance: grossly normal Course Reevaluation(s) Reevaluation #1: Patient more awake, looking better, patient with severe sepsis but not septic shock will continue current treatment and admit Time: 01:09 MDM - SOB/Dyspnea Lab Data Result diagrams: 05/02/21 23:58 05/02/21 23:58 Labs: Lab Results 05/02/21 05/02/21 05/02/21 Range/Units 23:58 23:58 23:58 WBC 12.6 H (4.8-10.8) X10*3/uL RBC 4.58 L (4.60-5.80) X10*6/uL Hgb 10.0 L (14.0-18.0) g/dl Hct 32.4 L (42.0-52.0) % MCV 70.7 L (80.0-98.0) fL MCH 21.8 L (27.0-33.0) pg MCHC 30.9 L (31.0-36.0) g/dl RDW 17.5 H (11.0-16.0) % Plt Count 164 (160-400) X10*3/uL MPV 11.3 (9.4-12.4) fL Immature Gran % (Auto) Cancelled Neut % (Auto) Cancelled Lymph % (Auto) Cancelled [place] % (Auto) Cancelled Eos % (Auto) Cancelled Baso % (Auto) Cancelled Lymph # (Auto) Cancelled [place] # (Auto) Cancelled Eos # (Auto) Cancelled Baso # (Auto) Cancelled Abs Immat Gran (auto) Cancelled Absolute Neuts (auto) Cancelled Absolute Nucleated RBC 0.000 (0.0-0.012) X10*3/uL Nucleated RBC % (auto) 0.0 (0.0-0.2) /100WBC Neutrophils % (Manual) 78 H (45-73) % Band Neutrophils % 9 H (3-5) % Lymphocytes % (Manual) 9 L (20-40) % Atypical Lymphs % (Man) 1 (0-6) % Monocytes % (Manual) 3 (2-11) % Abs Neuts (Manual) 11.0 H (2.0-8.3) X10*3/uL Lymphocytes # (Manual) 1.1 L (1.2-4.9) X10*3/uL Atyp Lymphs # (Manual) 0.1 x10*3/uL Monocytes # (Manual) 0.4 (0.1-1.2) X10*3/uL Toxic Vacuolation PRESENT Platelet Estimate NORMAL (NORMAL) Large Platelets PRESENT Giant Platelets PRESENT Plt Morphology Comment NOTED RBC Morphology NOTED Hypochromasia 1+ (5-14) /OIF Microcytosis 2+ (15-30) /OIF O2 Saturation % ABG pH at Pt Temp (7.35-7.45) ABG pH (Temp Correct) (7.35-7.45) ABG pCO2 at Pt Temp (32-45) mmHg ABG pCO2 (Temp Corrct (32-45) mmHg ABG pO2 at Pt Temp (83-108) mmHg ABG pO2 (Temp Correct (83-108) ABG HCO3 (22-26) mmol/L ABG Base Excess (Actual) mmol/L Sodium 130 L (135-145) mmol/L Potassium 3.7 (3.3-5.1) mmol/L Chloride 90 L (96-108) mmol/L Carbon Dioxide 30 H (22-29) mmol/L Anion Gap 14 (12-20) BUN 23 H (9-16) mg/dL Creatinine 1.16 (0.5-1.4) mg/dL Estim Creat Clear Calc 121.9 Estimated GFR > 60 Random Glucose 127 H (60-115) mg/dL Lactic Acid (0.5-2.0) mmol/L Calcium 8.9 D (8.4-10.2) mg/dL Total Bilirubin 1.3 H (0.0-1.0) mg/dL B-Natriuretic Peptide (<100) pg/mL COVID-19 (MY) Invalid (Negative) COVID-19 Clin Com See Note Influenza Type A (PCR) (Negative) Influenza Type B (PCR) (Negative) RSV RNA Qual (PCR) (Negative) SARS-CoV-2 RNA (RT-PCR) (Negative) 05/02/21 05/03/21 05/03/21 Range/Units 23:58 00:11 00:50 WBC (4.8-10.8) X10*3/uL RBC (4.60-5.80) X10*6/uL Hgb (14.0-18.0) g/dl Hct (42.0-52.0) % MCV (80.0-98.0) fL MCH (27.0-33.0) pg MCHC (31.0-36.0) g/dl RDW (11.0-16.0) % Plt Count (160-400) X10*3/uL MPV (9.4-12.4) fL Immature Gran % (Auto) Neut % (Auto) Lymph % (Auto) [place] % (Auto) Eos % (Auto) Baso % (Auto) Lymph # (Auto) [place] # (Auto) Eos # (Auto) Baso # (Auto) Abs Immat Gran (auto) Absolute Neuts (auto) Absolute Nucleated RBC (0.0-0.012) X10*3/uL Nucleated RBC % (auto) (0.0-0.2) /100WBC Neutrophils % (Manual) (45-73) % Band Neutrophils % (3-5) % Lymphocytes % (Manual) (20-40) % Atypical Lymphs % (Man) (0-6) % Monocytes % (Manual) (2-11) % Abs Neuts (Manual) (2.0-8.3) X10*3/uL Lymphocytes # (Manual) (1.2-4.9) X10*3/uL Atyp Lymphs # (Manual) x10*3/uL Monocytes # (Manual) (0.1-1.2) X10*3/uL Toxic Vacuolation Platelet Estimate (NORMAL) Large Platelets Giant Platelets Plt Morphology Comment RBC Morphology Hypochromasia /OIF Microcytosis /OIF O2 Saturation % ABG pH at Pt Temp (7.35-7.45) ABG pH (Temp Correct) (7.35-7.45) ABG pCO2 at Pt Temp (32-45) mmHg ABG pCO2 (Temp Corrct (32-45) mmHg ABG pO2 at Pt Temp (83-108) mmHg ABG pO2 (Temp Correct (83-108) ABG HCO3 (22-26) mmol/L ABG Base Excess (Actual) mmol/L Sodium (135-145) mmol/L Potassium (3.3-5.1) mmol/L Chloride (96-108) mmol/L Carbon Dioxide (22-29) mmol/L Anion Gap (12-20) BUN (9-16) mg/dL Creatinine (0.5-1.4) mg/dL Estim Creat Clear Calc Estimated GFR Random Glucose (60-115) mg/dL Lactic Acid 2.2 H* (0.5-2.0) mmol/L Calcium (8.4-10.2) mg/dL Total Bilirubin (0.0-1.0) mg/dL B-Natriuretic Peptide 76 (<100) pg/mL COVID-19 (MY) (Negative) COVID-19 Clin Com Influenza Type A (PCR) NEGATIVE (Negative) Influenza Type B (PCR) NEGATIVE (Negative) RSV RNA Qual (PCR) NEGATIVE (Negative) SARS-CoV-2 RNA (RT-PCR) NEGATIVE (Negative) 05/03/21 Range/Units 01:31 WBC (4.8-10.8) X10*3/uL RBC (4.60-5.80) X10*6/uL Hgb (14.0-18.0) g/dl Hct (42.0-52.0) % MCV (80.0-98.0) fL MCH (27.0-33.0) pg MCHC (31.0-36.0) g/dl RDW (11.0-16.0) % Plt Count (160-400) X10*3/uL MPV (9.4-12.4) fL Immature Gran % (Auto) Neut % (Auto) Lymph % (Auto) [place] % (Auto) Eos % (Auto) Baso % (Auto) Lymph # (Auto) [place] # (Auto) Eos # (Auto) Baso # (Auto) Abs Immat Gran (auto) Absolute Neuts (auto) Absolute Nucleated RBC (0.0-0.012) X10*3/uL Nucleated RBC % (auto) (0.0-0.2) /100WBC Neutrophils % (Manual) (45-73) % Band Neutrophils % (3-5) % Lymphocytes % (Manual) (20-40) % Atypical Lymphs % (Man) (0-6) % Monocytes % (Manual) (2-11) % Abs Neuts (Manual) (2.0-8.3) X10*3/uL Lymphocytes # (Manual) (1.2-4.9) X10*3/uL Atyp Lymphs # (Manual) x10*3/uL Monocytes # (Manual) (0.1-1.2) X10*3/uL Toxic Vacuolation Platelet Estimate (NORMAL) Large Platelets Giant Platelets Plt Morphology Comment RBC Morphology Hypochromasia /OIF Microcytosis /OIF O2 Saturation 97.0 % ABG pH at Pt Temp 7.45 (7.35-7.45) ABG pH (Temp Correct) 7.42 (7.35-7.45) ABG pCO2 at Pt Temp 46 H (32-45) mmHg ABG pCO2 (Temp Corrct 50 H (32-45) mmHg ABG pO2 at Pt Temp 102 (83-108) mmHg ABG pO2 (Temp Correct 114 H (83-108) ABG HCO3 32 H (22-26) mmol/L ABG Base Excess (Actual) 7.5 mmol/L Sodium (135-145) mmol/L Potassium (3.3-5.1) mmol/L Chloride (96-108) mmol/L Carbon Dioxide (22-29) mmol/L Anion Gap (12-20) BUN (9-16) mg/dL Creatinine (0.5-1.4) mg/dL Estim Creat Clear Calc Estimated GFR Random Glucose (60-115) mg/dL Lactic Acid (0.5-2.0) mmol/L Calcium (8.4-10.2) mg/dL Total Bilirubin (0.0-1.0) mg/dL B-Natriuretic Peptide (<100) pg/mL COVID-19 (MY) (Negative) COVID-19 Clin Com Influenza Type A (PCR) (Negative) Influenza Type B (PCR) (Negative) RSV RNA Qual (PCR) (Negative) SARS-CoV-2 RNA (RT-PCR) (Negative) Imaging Data Chest x-ray: Radiologist's impression: IMPRESSION: No consolidation. Central vascular prominence without overt edema. ? bilateral feet: Radiologist's impression: IMPRESSION: Extensive soft tissue swelling of both feet. Evaluation limited due to patient positioning. No definite acute osseous abnormality. Midfoot degenerative changes bilaterally.? arterial us bilaterally: Radiologist's impression: proximal stenosis bilaterally CT scan - chest: Radiologist's impression: IMPRESSION: Limited study. Motion limits the evaluation as well as suboptimal bolus. That said, there is no central or segmental pulmonary embolism. ? Scattered patchy opacities are seen in the lungs which may be infectious or inflammatory. ? Critical Care Time Critical Care Time Attestation: I spent 40 minutes of critical care, with interventions, assessments, speaking to patient, consultants, and family. Discharge Plan Discharge Clinical Impression: Gangrene Sepsis Qualifiers: Sepsis type: sepsis due to unspecified organism Sepsis acute organ dysfunction status: without acute organ dysfunction Qualified Code(s): A41.9 - Sepsis, unspecified organism Cellulitis Qualifiers: Site of cellulitis: extremity Site of cellulitis of extremity: lower extremity Laterality: unspecified laterality Qualified Code(s): L03.119 - Cellulitis of unspecified part of limb Patient Disposition: Admitted As Inpatient
[2021-05-02 23:34] VITALS: PULSE 136; RESP 41; TEMP 39.9
[2021-05-02 23:45] VITALS: BP 128/68; PULSE 142; RESP 38; TEMP 40.5; O2SAT 92; BMI 49.2
[2021-05-03] VITALS (17 sets, daily range): BP systolic 114–172; BP diastolic 53–72; PULSE 105–138; RESP 16–41; TEMP 36.8–40.3; O2SAT 86–100
[2021-05-03 00:04] LABS: PLT ABN DIST 1
[2021-05-03 00:06] LABS: Hematocrit 32.4 % (42.0-52.0); Mean Corpuscular HGB Conc 30.9 g/dl (31.0-36.0); Mean Corpuscular Hemoglobin 21.8 pg (27.0-33.0); Mean Corpuscular Volume 70.7 fL (80.0-98.0); Mean Platelet Volume 11.3 fL (9.4-12.4); Platelet Count 164 X10*3/uL (160-400); Red Blood Count 4.58 X10*6/uL (4.60-5.80); Red Cell Distribution Width 17.5 % (11.0-16.0); White Blood Count 12.6 X10*3/uL (4.8-10.8)
[2021-05-03 00:19] LABS: Anion Gap 14 (12-20); Bilirubin Total 1.3 mg/dL (0.0-1.0); Blood Urea Nitrogen 23 mg/dL (9-16); Calcium 8.9 mg/dL (8.4-10.2); Carbon Dioxide 30 mmol/L (22-29); Chloride 90 mmol/L (96-108); Creatinine Clr Calc Pharmacy 121.9; Estimated Glomerular Filt Rate > 60; Glucose Random 127 mg/dL (60-115); Potassium 3.7 mmol/L (3.3-5.1); Sodium 130 mmol/L (135-145)
[2021-05-03 00:24] LABS: Atypical Lymph Absolute Manual 0.1 x10*3/uL; Atypical Lymphs Percent Manual 1 % (0-6); Band Neutrophils Percent 9 % (3-5); Lymphocytes Absolute Manual 1.1 X10*3/uL (1.2-4.9); Lymphocytes Percent Manual 9 % (20-40); Monocytes Absolute Manual 0.4 X10*3/uL (0.1-1.2); Monocytes Percent Manual 3 % (2-11); Neutrophils Percent Manual 78 % (45-73)
[2021-05-03 00:25] LABS: Giant Platelet PRESENT; Hypochromasia 1+ (5-14) /OIF; Large Platelet PRESENT; Microcytosis 2+ (15-30) /OIF; Platelet Estimate NORMAL (NORMAL); Platelet Morphology Comment NOTED; RBC Morphology NOTED
[2021-05-03 00:26] LABS: Toxic Vacuolation PRESENT
[2021-05-03 00:33] LABS: Lactic Acid 2.2 mmol/L (0.5-2.0)
[2021-05-03 00:43] LABS: COVID-19 Test Invalid (Negative); IDNOW Serial# 9DD0AD1C
[2021-05-03] MEDS: Piperacillin Sodium/Tazobactam 4.5 GM in 0.9 % Sodium Chloride 100 ML IV ×4 (00:45→22:00)
[2021-05-03] MEDS: Acetaminophen 325 MG TABLET 975 MG PO (00:45)
[2021-05-03 01:36] LABS: Influenza A PCR NEGATIVE (Negative); Influenza B PCR NEGATIVE (Negative); Resp Syncy Virus RNA Qual PCR NEGATIVE (Negative); SARS COV2 PCR INHOUSE NEGATIVE (Negative)
[2021-05-03 01:36] LABS: ABG Base Excess 7.5 mmol/L; ABG HCO3 32 mmol/L (22-26); ABG pCO2 46 mmHg (32-45); ABG pCO2 TC 50 mmHg (32-45); ABG pH 7.45 (7.35-7.45); ABG pH TC 7.42 (7.35-7.45); ABG pO2 102 mmHg (83-108); ABG pO2 TC 114 (83-108)
[2021-05-03 01:46] LABS: ABG Refer to POC result
[2021-05-03 02:15] LABS: Reflex Lactate? Lactic Acid Added
[2021-05-03] MEDS: vancomycin HCL 1,000 MG, vancomycin HCL 750 MG in 0.9 % Sodium Chloride 500 ML 267.5 MG IV (03:04)
[2021-05-03] MEDS: Ibuprofen 800 MG TABLET PO (03:07)
[2021-05-03 03:23] LABS: B Type Natriuretic Peptide 76 pg/mL (<100)
[2021-05-03] MEDS: iohexoL 350 MG/ML 100 ML INFUS..BTL IV (05:00)
--- NOTE | 2021-05-03 06:07 | P.HPHOSP_ITS ---
History of Present Illness Date of Service: 05/03/21 Chief Complaint: leg ulcers This is a 45-year-old male with past medical history significant for reported hypertension and NIKKI presents to the hospital with complaints of lower extremity ulcers. Patient reports that he had spider bites in his lower extremities 2 months ago and have now developed into nonhealing ulcers. Although they are in bilateral legs. He reports that he went to wound care clinic but has been taking care of them at home with the help of his sister. He reports his sister was no longer able to take care of him and felt that his wound needed better care and therefore he came to the ED. He is also having shortness of breath, cough, no palpitations, no chest pain, no abdominal pain, no nausea or vomiting, no diarrhea constipation, no urinary symptoms and no lower extremity edema. On arrival to the ED vitals are significant for temp of 103.8?, heart rate of 136, who respiratory rate of 136, satting 92% on 15 L of non-rebreather. Patient apparently was hypoxic but unclear how lobe was his oxygen. Labs are significant for WBC count of 12.6, hemoglobin of 10 [place], hematocrit of 32, pH of 7.42, bicarb of 30, BUN of 23 with a creatinine of 1.16 with a baseline around 0.92, lactic acid of 2.2, total bili of 4.3, COVID-19, RSV, influenza a and B negative. CT of the chest is limited due to motion as well as suboptimal bolus but showed no central or segmental pulmonary embolus, shows scattered patchy opacities which may be infectious or inflammatory. X-rays of the foot bilaterally showed extensive soft tissue swelling of both feet, but evaluation was limited due to patient's positioning. Review of Systems Review of Systems: Yes all other systems are reviewed and are negative [facility] Medical History (Updated 05/03/21 @ 06:24 by Arabella Lucero MD) Allergies HTN (hypertension) Pertinent family history: Denies any family history of coronary artery disease Surgical History (Updated 05/03/21 @ 06:17 by Arabella Lucero MD) No pertinent past surgical history Social History (Updated 05/03/21 @ 06:17 by Arabella Lucero MD) Household Members: Family Housing: House Do you presently have visiting nurse or other home services: No Alcohol intake: former Patient Tobacco Use Status: Never used Tobacco Second Hand Smoke Exposure: No Use of substances other than those prescribed or required for medical reasons: Yes Substance Use Type: Crack/Cocaine and Marijuana Advance Directives: No Advance Directives Information Provided: Yes Meds Allergies Allergy/AdvReac Type Severity Reaction Status Date / Time No Known Allergies Allergy Verified 06/01/20 15:37 Active Medications: Current Medications Pharmacy Consult (Consult Rx Vancomycin Dosing) 1 each MISCELLANE DAILY PRN PRN Reason: Consult order Home Medications Medication Instructions Recorded Confirmed Last Taken Type No Known Home Meds 06/01/20 06/01/20 Unknown History Physical Exam Vital Signs and Narrative: Vital Signs: Last Vital Signs Temp 99.3 F 05/03/21 05:36 Pulse 113 H 05/03/21 05:36 Resp 26 H 05/03/21 05:36 BP 114/53 L 05/03/21 05:36 Pulse Ox 95 05/03/21 05:36 Oxygen Flow Rate 14 05/02/21 23:45 BMI result Body Mass Index 49.2 Const: General: cooperative and no acute distress Orientation/consciousness: patient oriented x3 Eyes: General: appearance normal, both eyes and all related structures Pupils: Equal, round and reactive pupils present Resp: Effort & Inspection: normal respiratory effort Auscultation: clear to auscultation bilaterally Cardio: Rate: regular rate Rhythm: regular rhythm GI: Palpation (GI): Soft to palpation Auscultation: normal bowel sounds Skin: Other: Has bilateral extensive wounds of the lower extremities from wounds around the toe is on the left foot, to a very large ulcer on the grant of the right leg. There is nonpitting edema as well as erythema, and warmth bilaterally. Neuro: General: patient oriented x3 Cranial nerves: Yes Equal, round and reactive pupils present Cognition (Neuro): normal cognition Extrem: Other: See skin above Results Labs CBC and Chem 7: 05/02/21 23:58 05/02/21 23:58 Labs: Laboratory Results - last 24 hr 05/02/21 05/02/21 05/02/21 23:58 23:58 23:58 MCV 70.7 L MCH 21.8 L MCHC 30.9 L RDW 17.5 H Plt Count 164 MPV 11.3 Immature Gran % (Auto) Cancelled Neut % (Auto) Cancelled Lymph % (Auto) Cancelled [place] % (Auto) Cancelled Eos % (Auto) Cancelled Baso % (Auto) Cancelled Lymph # (Auto) Cancelled [place] # (Auto) Cancelled Eos # (Auto) Cancelled Baso # (Auto) Cancelled Abs Immat Gran (auto) Cancelled Absolute Neuts (auto) Cancelled Absolute Nucleated RBC 0.000 Nucleated RBC % (auto) 0.0 Neutrophils % (Manual) 78 H Band Neutrophils % 9 H Lymphocytes % (Manual) 9 L Atypical Lymphs % (Man) 1 Monocytes % (Manual) 3 Abs Neuts (Manual) 11.0 H Lymphocytes # (Manual) 1.1 L Atyp Lymphs # (Manual) 0.1 Monocytes # (Manual) 0.4 Toxic Vacuolation PRESENT Platelet Estimate NORMAL Large Platelets PRESENT Giant Platelets PRESENT Plt Morphology Comment NOTED RBC Morphology NOTED Hypochromasia 1+ (5-14) Microcytosis 2+ (15-30) O2 Saturation ABG pH at Pt Temp ABG pH (Temp Correct) ABG pCO2 at Pt Temp ABG pCO2 (Temp Corrct ABG pO2 at Pt Temp ABG pO2 (Temp Correct ABG HCO3 ABG Base Excess (Actual) Anion Gap 14 Estim Creat Clear Calc 121.9 Estimated GFR > 60 Random Glucose 127 H Lactic Acid Calcium 8.9 D Total Bilirubin 1.3 H B-Natriuretic Peptide COVID-19 (MY) Invalid COVID-19 Clin Com See Note Influenza Type A (PCR) Influenza Type B (PCR) RSV RNA Qual (PCR) SARS-CoV-2 RNA (RT-PCR) 05/02/21 05/03/21 05/03/21 23:58 00:11 00:50 MCV MCH MCHC RDW Plt Count MPV Immature Gran % (Auto) Neut % (Auto) Lymph % (Auto) [place] % (Auto) Eos % (Auto) Baso % (Auto) Lymph # (Auto) [place] # (Auto) Eos # (Auto) Baso # (Auto) Abs Immat Gran (auto) Absolute Neuts (auto) Absolute Nucleated RBC Nucleated RBC % (auto) Neutrophils % (Manual) Band Neutrophils % Lymphocytes % (Manual) Atypical Lymphs % (Man) Monocytes % (Manual) Abs Neuts (Manual) Lymphocytes # (Manual) Atyp Lymphs # (Manual) Monocytes # (Manual) Toxic Vacuolation Platelet Estimate Large Platelets Giant Platelets Plt Morphology Comment RBC Morphology Hypochromasia Microcytosis O2 Saturation ABG pH at Pt Temp ABG pH (Temp Correct) ABG pCO2 at Pt Temp ABG pCO2 (Temp Corrct ABG pO2 at Pt Temp ABG pO2 (Temp Correct ABG HCO3 ABG Base Excess (Actual) Anion Gap Estim Creat Clear Calc Estimated GFR Random Glucose Lactic Acid 2.2 H* Calcium Total Bilirubin B-Natriuretic Peptide 76 COVID-19 (MY) COVID-19 Clin Com Influenza Type A (PCR) NEGATIVE Influenza Type B (PCR) NEGATIVE RSV RNA Qual (PCR) NEGATIVE SARS-CoV-2 RNA (RT-PCR) NEGATIVE 05/03/21 01:31 MCV MCH MCHC RDW Plt Count MPV Immature Gran % (Auto) Neut % (Auto) Lymph % (Auto) [place] % (Auto) Eos % (Auto) Baso % (Auto) Lymph # (Auto) [place] # (Auto) Eos # (Auto) Baso # (Auto) Abs Immat Gran (auto) Absolute Neuts (auto) Absolute Nucleated RBC Nucleated RBC % (auto) Neutrophils % (Manual) Band Neutrophils % Lymphocytes % (Manual) Atypical Lymphs % (Man) Monocytes % (Manual) Abs Neuts (Manual) Lymphocytes # (Manual) Atyp Lymphs # (Manual) Monocytes # (Manual) Toxic Vacuolation Platelet Estimate Large Platelets Giant Platelets Plt Morphology Comment RBC Morphology Hypochromasia Microcytosis O2 Saturation 97.0 ABG pH at Pt Temp 7.45 ABG pH (Temp Correct) 7.42 ABG pCO2 at Pt Temp 46 H ABG pCO2 (Temp Corrct 50 H ABG pO2 at Pt Temp 102 ABG pO2 (Temp Correct 114 H ABG HCO3 32 H ABG Base Excess (Actual) 7.5 Anion Gap Estim Creat Clear Calc Estimated GFR Random Glucose Lactic Acid Calcium Total Bilirubin B-Natriuretic Peptide COVID-19 (MY) COVID-19 Clin Com Influenza Type A (PCR) Influenza Type B (PCR) RSV RNA Qual (PCR) SARS-CoV-2 RNA (RT-PCR) Imaging Radiologist's Impressions: Impressions Chest X-Ray 05/02/21 23:59 IMPRESSION: No consolidation. Central vascular prominence without overt edema. Foot X-Ray 05/02/21 23:59 IMPRESSION: Extensive soft tissue swelling of both feet. Evaluation limited due to patient positioning. No definite acute osseous abnormality. Midfoot degenerative changes bilaterally. Foot X-Ray 05/02/21 23:59 IMPRESSION: Extensive soft tissue swelling of both feet. Evaluation limited due to patient positioning. No definite acute osseous abnormality. Midfoot degenerative changes bilaterally. Chest CTA 05/03/21 05:00 IMPRESSION: Limited study. Motion limits the evaluation as well as suboptimal bolus. That said, there is no central or segmental pulmonary embolism. Scattered patchy opacities are seen in the lungs which may be infectious or inflammatory. VTE: negative Assessment and Plan (1) Sepsis: Qualifiers: Sepsis acute organ dysfunction status: without acute organ dysfunction Sepsis type: sepsis due to unspecified organism Qualified Code(s): A41.9 - Sepsis, unspecified organism Status: Acute (2) Cellulitis: Qualifiers: Laterality: unspecified laterality Site of cellulitis: extremity Site of cellulitis of extremity: lower extremity Qualified Code(s): L03.119 - Cellulitis of unspecified part of limb Status: Acute (3) Pneumonia: Status: Acute (4) Bilateral leg ulcer: Status: Acute (5) Acute respiratory failure with hypoxia: Status: Acute This is a 45-year-old male with past medical history of hypertension who presents to the hospital with bilateral leg ulcers found to have pneumonia as well as lactic acidosis and nonhealing ulcers # sepsis - most likely multifactorial including secondary to pneumonia as well as bilateral leg ulcer/cellulitis - will start him on broad-spectrum IV antibiotic - follow culture - IV fluid # bilateral leg ulcer/cellulitis - pending arterial Dopplers - pending ESR and CRP - patient denies history of diabetes - at this time will start him on IV antibiotic - will consult wound care - follow arterial Doppler as well as cultures - if ESR/CRP significantly elevated consider MRI # hypoxic respiratory failure acute - most likely secondary to pneumonia - has patchy infiltrates on CT - reported hypoxia but no documentation - currently on 15 L of non-rebreather - patient reports history of NIKKI noncompliant with CPAP - ABG shows normal pH no hypercapnia - -will continue O2 supplement, CPAP at bedtime # pneumonia - most likely secondary to community-acquired - COVID-19, influenza, RSV negative - requiring oxygen as above - continue broad-spectrum IV antibiotic - follow culture # lactic acidosis - multifactorial secondary to pneumonia, sepsis, as well as hydration - will start him on IV fluid - trend lactic acid # reported history of hypertension - does not appear to be taking any medications for - BP on the lower and - monitor DVT prophylaxis: Heparin subQ Quality Stroke Does the patient have a stroke diagnosis?: No VTE Prior VTE?: No VTE Risk Level:: Medical - moderate - high VTE Device Contraindication: Treatment Not Indicated VTE Drug Contraindication: N/A - Med Ordered
[2021-05-03 07:06] LABS: C Reactive Protein 37.07 mg/dL (< or = 0.50)
--- NOTE | 2021-05-03 08:00 | PC.NURSE ---
Phelbotomy at bedside attempting lab draw at thi time
[2021-05-03 08:17] LABS: Mean Corpuscular Volume 72.2 fL (80.0-98.0)
[2021-05-03 08:19] LABS: Hematocrit 32.5 % (42.0-52.0); Hemoglobin 9.8 g/dl (14.0-18.0); Mean Corpuscular HGB Conc 30.2 g/dl (31.0-36.0); Mean Corpuscular Hemoglobin 21.8 pg (27.0-33.0); PLT CLUMP 1; Red Cell Distribution Width 17.6 % (11.0-16.0)
[2021-05-03 08:21] LABS: PLT ABN DIST 1
[2021-05-03 08:27] LABS: ~Lactic Acid-LAB USE ONLY 1.8 mmol/L (0.5-2.0)
[2021-05-03 08:33] LABS: Anion Gap 16 (12-20); Blood Urea Nitrogen 24 mg/dL (9-16); Calcium 7.9 mg/dL (8.4-10.2); Carbon Dioxide 22 mmol/L (22-29); Chloride 98 mmol/L (96-108); Creatinine Clr Calc Pharmacy 114.9; Estimated Glomerular Filt Rate > 60; Glucose Random 98 mg/dL (60-115); Potassium 3.6 mmol/L (3.3-5.1); Sodium 132 mmol/L (135-145)
[2021-05-03 08:39] LABS: Estimated Average Glucose 105 mg/dL; Hemoglobin A1c % 5.3 %
[2021-05-03 08:41] LABS: Band Neutrophils Percent 11 % (3-5); Lymphocytes Percent Manual 5 % (20-40); Monocytes Percent Manual 7 % (2-11); Neutrophils Percent Manual 77 % (45-73); Nucleated Red Blood Cells 1 /100WBC (0-0)
[2021-05-03 08:42] LABS: Microcytosis 2+ (15-30) /OIF; Platelet Estimate DECREASED (NORMAL); Platelet Morphology Comment NORMAL; RBC Morphology NOTED
[2021-05-03 08:43] LABS: Acanthocytes 1+ (0-2) /OIF; Ovalocytes 1+ (5-14) /OIF; Schistocytes 1+ (0-2) /OIF; Toxic Granulation PRESENT; Toxic Vacuolation PRESENT
[2021-05-03 08:45] LABS: Lymphocytes Absolute Manual 0.5 X10*3/uL (1.2-4.9); Monocytes Absolute Manual 0.7 X10*3/uL (0.1-1.2); Neutrophils Absolute Manual 8.2 X10*3/uL (2.0-8.3); Platelet Count 110 X10*3/uL (160-400); White Blood Count 9.3 X10*3/uL (4.8-10.8)
--- NOTE | 2021-05-03 09:46 | PHA.MEDREC ---
Pharmacy Consult ? Medication Reconciliation Pharmacy has completed the medication reconciliation. Rebecca DuD BCPS
--- NOTE | 2021-05-03 10:23 | PHA.PROG ---
Admission Date/Time: May 03, 2021 06:06 Indication: skin,sepsis Weight in k.7 kg Adjusted body weight in K kg [place] body weight in K kg Obesity Dosing Indication % IBW: Serum Creatinine - Last 168 Hours 05/02/21 05/03/21 23:58 08:09 Creatinine 1.16 1.23 Estimated CrCl and GFR - Last 168 Hours 05/02/21 05/03/21 23:58 08:09 Estim Creat Clear Calc 121.9 114.9 Estimated GFR > 60 > 60 Vancomycin Loading Dose: 1750 mg Current Vancomycin Dosing Regimen: 1250 mg q12 Vancomycin Monitoring using AUC goal of 400 - 600 range with trough as surrogate marker: 581 Date and Time for next Vancomycin Level to be drawn: 05/04 @0400 Pharmacist Comments on Vancomycin Plan: Patient has skin infection, (also sepsis?) patients renal function increase after one dose of vanco. put in early level. Higher dosing/auc since pt has sepsis? Left note to monitor scr since pt is on high dose zosyn as well. Timed doses to fit hours of operation since it was reasonable to do so. Vancomycin dosing will take advantage of [employer] as a clinical decision support tool that uses Bayesian modeling to calculate individual patient's pharmacokinetic parameters and forecast the patient's drug concentration time course with the target goal AUC 24 range of 400 - 600 mg/L/hr.
[2021-05-03] MEDS: Heparin Sodium,Porcine 5,000 UNIT/ML VIAL 5000 UNIT SUBCUT ×2 (10:27→16:01)
[2021-05-03] MEDS: 0.9 % Sodium Chloride Flush 3 ML SYRINGE IVFLUSH (10:28)
[2021-05-03] MEDS: 0.9 % Sodium Chloride 1,000 ML 100 ML IVCONT (10:35)
--- NOTE | 2021-05-03 12:34 | PC.NURSE ---
this proposal writer called respiratory therapy to change pt from nasal cannula to Bipap due to pt desatting to 84-86% on 6L N/C. RT placed pt on Bipap, pt tolerating well. Report given to Mally herrera receiving RN in ed overflow.
--- NOTE | 2021-05-03 13:57 | P.PNIM_ITS ---
Subjective Subjective Date of Service: 05/03/21 Interval History: seen and examined this morning follow up for leg wounds/sepsis/pneumonia denies SOB, denies cough Review of Systems Review of Systems: Yes all other systems are reviewed and are negative Constitutional Constitutional: Denies chills and Denies fever(s) Cardiovascular Cardiovascular: Denies chest pain Respiratory Respiratory: Denies cough Gastrointestinal Gastrointestinal: Denies abdominal pain Physical Exam Vital Signs: Vital Signs: Last Vital Signs Temp 99.3 F 05/03/21 05:36 Pulse 121 H 05/03/21 11:44 Resp 26 H 05/03/21 12:06 BP 124/55 L 05/03/21 11:44 Pulse Ox 86 L 05/03/21 11:44 Oxygen Flow Rate 14 05/02/21 23:45 BMI result Body Mass Index 49.2 Const: General: cooperative, comfortable, no acute distress, alert and awake Nutritional Appearance: obese Orientation/consciousness: patient oriented x3 HENMT: Head: Yes normocephalic and Yes atraumatic Eyes: Sclerae: sclerae normal Resp: Effort & Inspection: normal respiratory effort and no respiratory distress Cardio: Rate: regular rate Rhythm: regular rhythm GI: Palpation (GI): Soft to palpation and nontender : Other: bradford draining clear yellow urine Skin: Other: Neuro: General: patient oriented x3 Cranial nerves: Yes CN's II-XII intact bilaterally and Yes Bilaterally intact EOM present Objective Data Active Medications Acetaminophen (Acetaminophen 325 Mg Tablet) 650 mg PO Q6H PRN PRN Reason: Pain, Mild (Pain Scale 1-3) Docusate Sodium (Docusate Sodium 100 Mg Capsule) 100 mg PO DAILY PRN PRN Reason: Constipation Heparin Sodium (Porcine) (Heparin Sodium,Porcine 5,000 Unit/Ml Vial) 5,000 unit SUBCUT Q8H [facility] Last Admin: 05/03/21 10:27 Dose: 5,000 unit Documented by: MEJIA Sodium Chloride (Ns) 1,000 mls @ 100 mls/hr IVCONT .Q10H [facility] Last Admin: 05/03/21 10:35 Dose: 100 mls/hr Documented by: MEJIA Piperacillin Sod/Tazobactam (Sod 4.5 gm/ Sodium Chloride) 100 mls @ 200 mls/hr IV Q6H [facility] Last Infusion: 05/03/21 11:44 Dose: 0 mls/hr Documented by: MEJIA Vancomycin HCl 1,250 mg/ (Sodium Chloride) 250 mls @ 166.667 mls/hr IV Q12H [facility] Methylprednisolone Sodium Succinate (Methylprednisolone Sod Succ 40 Mg/Ml Vial) 40 mg IVPUSH Q12H [facility] Ondansetron HCl (Ondansetron Hcl 4 Mg/2 Ml Vial) 4 mg IVPUSH Q8H PRN PRN Reason: Nausea and Vomiting Pharmacy Consult (Consult Rx Vancomycin Dosing) 1 each MISCELLANE DAILY PRN PRN Reason: Consult order Pharmacy Consult (Consult Rx Vancomycin Dosing) 1 each MISCELLANE DAILY PRN PRN Reason: Consult order Sodium Chloride (0.9 % Sodium Chloride Flush 3 Ml Syringe) 3 ml IVFLUSH QSHIFT [facility] Last Admin: 05/03/21 10:28 Dose: 3 ml Documented by: MEJIA Labs CBC & Chem 7: 05/03/21 08:09 05/03/21 08:09 Labs: Laboratory Results - last 24 hr 05/02/21 05/02/21 05/02/21 23:58 23:58 23:58 MCV 70.7 L MCH 21.8 L MCHC 30.9 L RDW 17.5 H Plt Count 164 MPV 11.3 Immature Gran % (Auto) Cancelled Neut % (Auto) Cancelled Lymph % (Auto) Cancelled [place] % (Auto) Cancelled Eos % (Auto) Cancelled Baso % (Auto) Cancelled Lymph # (Auto) Cancelled [place] # (Auto) Cancelled Eos # (Auto) Cancelled Baso # (Auto) Cancelled Abs Immat Gran (auto) Cancelled Absolute Neuts (auto) Cancelled Absolute Nucleated RBC 0.000 Nucleated RBC % (auto) 0.0 Neutrophils % (Manual) 78 H Band Neutrophils % 9 H Lymphocytes % (Manual) 9 L Atypical Lymphs % (Man) 1 Monocytes % (Manual) 3 Abs Neuts (Manual) 11.0 H Lymphocytes # (Manual) 1.1 L Atyp Lymphs # (Manual) 0.1 Monocytes # (Manual) 0.4 Nucleated RBCs Toxic Granulation Toxic Vacuolation PRESENT Platelet Estimate NORMAL Large Platelets PRESENT Giant Platelets PRESENT Plt Morphology Comment NOTED RBC Morphology NOTED Hypochromasia 1+ (5-14) Microcytosis 2+ (15-30) Ovalocytes Acanthocytes (Spur) Schistocytes O2 Saturation ABG pH at Pt Temp ABG pH (Temp Correct) ABG pCO2 at Pt Temp ABG pCO2 (Temp Corrct ABG pO2 at Pt Temp ABG pO2 (Temp Correct ABG HCO3 ABG Base Excess (Actual) Anion Gap 14 Estim Creat Clear Calc 121.9 Estimated GFR > 60 Random Glucose 127 H Estimat Average Glucose Hemoglobin A1c % Lactic Acid Lactic Acid Fup @ 2Hr Calcium 8.9 D Total Bilirubin 1.3 H C-Reactive Protein 37.07 H B-Natriuretic Peptide COVID-19 (MY) Invalid COVID-19 Clin Com See Note Influenza Type A (PCR) Influenza Type B (PCR) RSV RNA Qual (PCR) SARS-CoV-2 RNA (RT-PCR) 05/02/21 05/03/21 05/03/21 23:58 00:11 00:50 MCV MCH MCHC RDW Plt Count MPV Immature Gran % (Auto) Neut % (Auto) Lymph % (Auto) [place] % (Auto) Eos % (Auto) Baso % (Auto) Lymph # (Auto) [place] # (Auto) Eos # (Auto) Baso # (Auto) Abs Immat Gran (auto) Absolute Neuts (auto) Absolute Nucleated RBC Nucleated RBC % (auto) Neutrophils % (Manual) Band Neutrophils % Lymphocytes % (Manual) Atypical Lymphs % (Man) Monocytes % (Manual) Abs Neuts (Manual) Lymphocytes # (Manual) Atyp Lymphs # (Manual) Monocytes # (Manual) Nucleated RBCs Toxic Granulation Toxic Vacuolation Platelet Estimate Large Platelets Giant Platelets Plt Morphology Comment RBC Morphology Hypochromasia Microcytosis Ovalocytes Acanthocytes (Spur) Schistocytes O2 Saturation ABG pH at Pt Temp ABG pH (Temp Correct) ABG pCO2 at Pt Temp ABG pCO2 (Temp Corrct ABG pO2 at Pt Temp ABG pO2 (Temp Correct ABG HCO3 ABG Base Excess (Actual) Anion Gap Estim Creat Clear Calc Estimated GFR Random Glucose Estimat Average Glucose Hemoglobin A1c % Lactic Acid 2.2 H* Lactic Acid Fup @ 2Hr Calcium Total Bilirubin C-Reactive Protein B-Natriuretic Peptide 76 COVID-19 (MY) COVID-19 Clin Com Influenza Type A (PCR) NEGATIVE Influenza Type B (PCR) NEGATIVE RSV RNA Qual (PCR) NEGATIVE SARS-CoV-2 RNA (RT-PCR) NEGATIVE 12/16/21 12/16/21 12/16/21 01:31 08:09 08:09 MCV MCH MCHC RDW Plt Count MPV Immature Gran % (Auto) Neut % (Auto) Lymph % (Auto) [place] % (Auto) Eos % (Auto) Baso % (Auto) Lymph # (Auto) [place] # (Auto) Eos # (Auto) Baso # (Auto) Abs Immat Gran (auto) Absolute Neuts (auto) Absolute Nucleated RBC Nucleated RBC % (auto) Neutrophils % (Manual) Band Neutrophils % Lymphocytes % (Manual) Atypical Lymphs % (Man) Monocytes % (Manual) Abs Neuts (Manual) Lymphocytes # (Manual) Atyp Lymphs # (Manual) Monocytes # (Manual) Nucleated RBCs Toxic Granulation Toxic Vacuolation Platelet Estimate Large Platelets Giant Platelets Plt Morphology Comment RBC Morphology Hypochromasia Microcytosis Ovalocytes Acanthocytes (Spur) Schistocytes O2 Saturation 97.0 ABG pH at Pt Temp 7.45 ABG pH (Temp Correct) 7.42 ABG pCO2 at Pt Temp 46 H ABG pCO2 (Temp Corrct 50 H ABG pO2 at Pt Temp 102 ABG pO2 (Temp Correct 114 H ABG HCO3 32 H ABG Base Excess (Actual) 7.5 Anion Gap Estim Creat Clear Calc Estimated GFR Random Glucose Estimat Average Glucose 105 Hemoglobin A1c % 5.3 Lactic Acid Lactic Acid Fup @ 2Hr 1.8 Calcium Total Bilirubin C-Reactive Protein B-Natriuretic Peptide COVID-19 (MY) COVID-19 Clin Com Influenza Type A (PCR) Influenza Type B (PCR) RSV RNA Qual (PCR) SARS-CoV-2 RNA (RT-PCR) 05/03/21 05/03/21 08:09 08:09 MCV 72.2 L MCH 21.8 L MCHC 30.2 L RDW 17.6 H Plt Count 110 L D MPV Not Reportable Immature Gran % (Auto) Cancelled Neut % (Auto) Cancelled Lymph % (Auto) Cancelled [place] % (Auto) Cancelled Eos % (Auto) Cancelled Baso % (Auto) Cancelled Lymph # (Auto) Cancelled [place] # (Auto) Cancelled Eos # (Auto) Cancelled Baso # (Auto) Cancelled Abs Immat Gran (auto) Cancelled Absolute Neuts (auto) Cancelled Absolute Nucleated RBC 0.000 Nucleated RBC % (auto) 0.0 Neutrophils % (Manual) 77 H Band Neutrophils % 11 H Lymphocytes % (Manual) 5 L Atypical Lymphs % (Man) Monocytes % (Manual) 7 Abs Neuts (Manual) 8.2 Lymphocytes # (Manual) 0.5 L Atyp Lymphs # (Manual) Monocytes # (Manual) 0.7 Nucleated RBCs 1 H Toxic Granulation PRESENT Toxic Vacuolation PRESENT Platelet Estimate DECREASED Large Platelets Giant Platelets Plt Morphology Comment NORMAL RBC Morphology NOTED Hypochromasia Microcytosis 2+ (15-30) Ovalocytes 1+ (5-14) Acanthocytes (Spur) 1+ (0-2) Schistocytes 1+ (0-2) O2 Saturation ABG pH at Pt Temp ABG pH (Temp Correct) ABG pCO2 at Pt Temp ABG pCO2 (Temp Corrct ABG pO2 at Pt Temp ABG pO2 (Temp Correct ABG HCO3 ABG Base Excess (Actual) Anion Gap 16 Estim Creat Clear Calc 114.9 Estimated GFR > 60 Random Glucose 98 Estimat Average Glucose Hemoglobin A1c % Lactic Acid Lactic Acid Fup @ 2Hr Calcium 7.9 L D Total Bilirubin C-Reactive Protein B-Natriuretic Peptide COVID-19 (MY) COVID-19 Clin Com Influenza Type A (PCR) Influenza Type B (PCR) RSV RNA Qual (PCR) SARS-CoV-2 RNA (RT-PCR) Microbiology Microbiology Results: Microbiology 05/02/21 23:58 Blood Culture - Preliminary Blood - Venous Prelim: GPC Gram Stain only 05/02/21 23:58 Blood Culture - Preliminary Blood - Venous Prelim: GPC Gram Stain only Assessment and Plan (1) Acute respiratory failure with hypoxia: Status: Acute (2) Pneumonia: Status: Acute (3) Sepsis: Status: Acute (4) Cellulitis: Status: Acute Assessment and Plan: This is a 45-year-old male with past medical history of hypertension who presents to the hospital with chronic leg ulcers found to have pneumonia, sepsis and respiratory failure sepsis secondary to pneumonia vs bilateral leg ulcer/cellulitis lactic acid 2.2 received 300cc/kg bolus in ED continue vancomycin and zosyn bacteremia 2/2 Blood cultures from 05/02 growing gram positive cocci continue IV abx follow up repeat BCx, repeat blood cultures bilateral leg ulcer/cellulitis pt reports wounds have been present for two months or more since spider bite treated at [facility], was following with surgeon outpatient arterial Dopplers showing worsening of vascular disease -will consult vascular surgery -continue IV antibiotics as above -will attempt to obtain records from [facility] acute hypoxic respiratory failure likely multifactorial r/t underlying pneumonia, obesity hypoventilation and NIKKI CTA negative for PE - continue supplemental o2, CPAP at bedtime - prn breathing treatments pneumonia/pneumonitis COVID-19, influenza, RSV negative possible bacterial vs pneumonitis; h/o drug use - continue broad-spectrum IV antibiotic - will add systemic steroids thrombocytopenia likely r/t acute illness follow CBC chronic microcytic anemia H/H within baseline follow CBC HTN on norvasc, HCTZ at baseline given sepsis will hold off BP meds at this time monitor BP closely, resume BP meds as BP allows morbid obesity BMI 49.3 contributing to respiratory failure weight loss encouraged NIKKI non - compliant with CPAP DVT prophylaxis: Heparin subQ attending: dr. barbosa Quality Stroke Does the patient have a stroke diagnosis?: No VTE Prior VTE?: No VTE Risk Level:: Medical - moderate - high VTE Device Contraindication: Treatment Not Indicated VTE Drug Contraindication: N/A - Med Ordered
[2021-05-03] MEDS: methylPREDNISolone Sod Succ 40 MG/ML VIAL IVPUSH (14:28)
--- NOTE | 2021-05-03 14:37 | PC.NURSE ---
Pt arrives on 6L NC, pain to buttocks at this time. Pt asking for food and juice, uninterested in care and medical information at this time. Self repositions in bed, BLE dressed at this time with dougie wraps. No drainage noted at this time. Call gomes given to pt, will continue to monitor.
--- NOTE | 2021-05-03 14:41 | PC.NURSE ---
Skin/wound assessment completed. Patient has multiple venous ulcers to right leg and venous ulcers to bilateral feet/toes. All wounds cleansed with wound cleanser then silver alginate applied to wound beds covered with nonwoven gauze and roll gauze. Triad applied to bilateral feet/toes covered with non woven gauze and roll gauze. Raúl wraps applied to bilateral lower extremities.
--- NOTE | 2021-05-03 15:53 | PC.NURSE ---
Pt O2 sat in high 90's on 6L NC, no complaints at this time. Will continue to monitor.
--- NOTE | 2021-05-03 17:00 | PM.CNGS ---
History of Present Illness Consult details Consult date: 05/03/21 Narrative: 5-year-old male patient with history of obstructive sleep apnea, hypertension, morbid obesity, gout presenting with worsening lower extremity ulcers including a nonhealing wound and the right calf. He reports the wound started as a spider bite and gradually increased to a large nonhealing ulcer. 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 He underwent surgery in [facility] onto the care of a surgeon at this location. His sister has noted increased redness around the wound and was concerned about development of increasing infection. He subsequently presented to the emergency department for further evaluation. His sister reports intermittent fevers and increasing shortness of breath. Upon presentation emergency department his laboratories revealed elevated WBC of 12.6. Bilateral x-rays revealed soft tissue swelling without obvious osseous abnormalities. Duplex arterial scans revealed worsening disease bilaterally compared to the previous study of 06/01/2020. Biphasic waveforms in the right lower extremity were previously triphasic. Monophasic waveforms in the lower extremity left leg for consistent with progression of hemodynamically significant stenosis some of which may be related to in flow abnormality related to superficial femoral artery disease. Review of Systems Review of Systems: Yes all other systems are reviewed and are negative Constitutional: Constitutional: Reports chills, Reports fatigue, Reports fever(s), Reports snoring and Reports weight gain Cardiovascular: Cardiovascular: Denies chest pain, Reports rapid heart rate, Denies irregular heart rhythm, Reports leg ulcers, Reports leg edema, Reports dyspnea and Reports dyspnea on exertion Respiratory: Respiratory: Denies cough, Reports dyspnea, Reports dyspnea on exertion and Reports snoring Gastrointestinal: Gastrointestinal: Denies abdominal pain, Denies diarrhea, Denies nausea and Denies vomiting Musculoskeletal: Musculoskeletal: Reports myalgias, Reports arthralgias and Reports joint swelling Integumentary/Breasts: Skin/Breast: Reports as per HPI Endocrine: Endocrine: Reports fatigue Hematologic/Lymphatic: Comments: iron deficency anemia PMFSH Past Medical History Medical History Allergies HTN (hypertension) Iron deficiency anemia Sleep apnea Surgical History Surgical History No pertinent past surgical history Social History Social History Household Members: Family Housing: House Do you presently have visiting nurse or other home services: No Alcohol intake: former Patient Tobacco Use Status: Never used Tobacco Second Hand Smoke Exposure: No Use of substances other than those prescribed or required for medical reasons: Yes Substance Use Type: Crack/Cocaine and Marijuana Advance Directives: No Advance Directives Information Provided: Yes Meds Allergies Allergy/AdvReac Type Severity Reaction Status Date / Time No Known Allergies Allergy Verified 06/01/20 15:37 Active Medications: Current Medications Acetaminophen (Acetaminophen 325 Mg Tablet) 650 mg PO Q6H PRN PRN Reason: Pain, Mild (Pain Scale 1-3) Albuterol/Ipratropium (Albuterol/Iprat 2.5/0.5mg 3 Ml Ampul.Neb) 3 ml INHALE RQ6H PRN PRN Reason: Shortness of Breath Docusate Sodium (Docusate Sodium 100 Mg Capsule) 100 mg PO DAILY PRN PRN Reason: Constipation Heparin Sodium (Porcine) (Heparin Sodium,Porcine 5,000 Unit/Ml Vial) 5,000 unit SUBCUT Q8H [facility] Last Admin: 05/03/21 16:01 Dose: 5,000 unit Documented by: Sodium Chloride (Ns) 1,000 mls @ 100 mls/hr IVCONT .Q10H [facility] Last Admin: 05/03/21 10:35 Dose: 100 mls/hr Documented by: Piperacillin Sod/Tazobactam (Sod 4.5 gm/ Sodium Chloride) 100 mls @ 200 mls/hr IV Q6H [facility] Last Infusion: 05/03/21 15:59 Dose: Infused Documented by: Vancomycin HCl 1,250 mg/ (Sodium Chloride) 250 mls @ 166.667 mls/hr IV Q12H [facility] Methylprednisolone Sodium Succinate (Methylprednisolone Sod Succ 40 Mg/Ml Vial) 40 mg IVPUSH Q12H [facility] Last Admin: 05/03/21 14:28 Dose: 40 mg Documented by: Ondansetron HCl (Ondansetron Hcl 4 Mg/2 Ml Vial) 4 mg IVPUSH Q8H PRN PRN Reason: Nausea and Vomiting Pharmacy Consult (Consult Rx Vancomycin Dosing) 1 each MISCELLANE DAILY PRN PRN Reason: Consult order Pharmacy Consult (Consult Rx Vancomycin Dosing) 1 each MISCELLANE DAILY PRN PRN Reason: Consult order Sodium Chloride (0.9 % Sodium Chloride Flush 3 Ml Syringe) 3 ml IVFLUSH QSHIFT [facility] Last Admin: 05/03/21 15:58 Dose: Not Given Documented by: Home Medications Medication Instructions Recorded Confirmed Last Taken Type amlodipine 10 mg tablet 1 tab PO DAILY 05/03/21 05/03/21 05/02/21 History gabapentin 300 mg capsule 1 cap PO TID PRN 05/03/21 05/03/21 Unknown History hydrochlorothiazide 12.5 mg tablet 1 tab PO DAILY 05/03/21 05/03/21 05/02/21 History Physical Exam Vital Signs: Vital Signs: Last Vital Signs Temp 99.3 F 05/03/21 16:56 Pulse 124 H 05/03/21 16:56 Resp 16 05/03/21 16:56 BP 144/54 H 05/03/21 16:56 Pulse Ox 92 05/03/21 16:56 Oxygen Flow Rate 14 05/02/21 23:45 BMI result Body Mass Index 49.2 Const: General: alert, Cushingoid facies and ill appearing Nutritional Appearance: obese Orientation/consciousness: patient oriented x3 Limitations: no limitations HENMT: Other: Facial edema Head: Yes normocephalic and Yes atraumatic Ears: hearing grossly normal bilaterally Resp: Effort & Inspection: no cough, nasal flaring, tachypneic and uses accessory muscles Cardio: Jugular venous distension: no JVD Rate: tachycardic Rhythm: regular rhythm GI: Inspection: Yes normal to inspection and Yes obesity Skin: General skin exam: erythema, Excoriation and no fluctuance Neuro: General: patient oriented x3 Extrem: Other: right leg calf ulceration with some granulation tissue at the base. Wounds recently changed by RN therefore complete wound examination not performed at this time. Results Labs Result diagrams: 05/03/21 08:09 05/03/21 08:09 Labs: Abnormal lab results 05/02/21 05/02/21 05/03/21 Range/Units 23:58 23:58 00:11 WBC 12.6 H (4.8-10.8) X10*3/uL RBC 4.58 L (4.60-5.80) X10*6/uL Hgb 10.0 L (14.0-18.0) g/dl Hct 32.4 L (42.0-52.0) % MCV 70.7 L (80.0-98.0) fL MCH 21.8 L (27.0-33.0) pg MCHC 30.9 L (31.0-36.0) g/dl RDW 17.5 H (11.0-16.0) % Plt Count (160-400) X10*3/uL Neutrophils % (Manual) 78 H (45-73) % Band Neutrophils % 9 H (3-5) % Lymphocytes % (Manual) 9 L (20-40) % Abs Neuts (Manual) 11.0 H (2.0-8.3) X10*3/uL Lymphocytes # (Manual) 1.1 L (1.2-4.9) X10*3/uL Nucleated RBCs (0-0) /100WBC ABG pCO2 at Pt Temp (32-45) mmHg ABG pCO2 (Temp Corrct (32-45) mmHg ABG pO2 (Temp Correct (83-108) ABG HCO3 (22-26) mmol/L Sodium 130 L (135-145) mmol/L Chloride 90 L (96-108) mmol/L Carbon Dioxide 30 H (22-29) mmol/L BUN 23 H (9-16) mg/dL Random Glucose 127 H (60-115) mg/dL Lactic Acid 2.2 H* (0.5-2.0) mmol/L Calcium (8.4-10.2) mg/dL Total Bilirubin 1.3 H (0.0-1.0) mg/dL C-Reactive Protein 37.07 H (< or = 0.50) mg/dL 05/03/21 05/03/21 05/03/21 Range/Units 01:31 08:09 08:09 WBC (4.8-10.8) X10*3/uL RBC 4.50 L (4.60-5.80) X10*6/uL Hgb 9.8 L (14.0-18.0) g/dl Hct 32.5 L (42.0-52.0) % MCV 72.2 L (80.0-98.0) fL MCH 21.8 L (27.0-33.0) pg MCHC 30.2 L (31.0-36.0) g/dl RDW 17.6 H (11.0-16.0) % Plt Count 110 L D (160-400) X10*3/uL Neutrophils % (Manual) 77 H (45-73) % Band Neutrophils % 11 H (3-5) % Lymphocytes % (Manual) 5 L (20-40) % Abs Neuts (Manual) (2.0-8.3) X10*3/uL Lymphocytes # (Manual) 0.5 L (1.2-4.9) X10*3/uL Nucleated RBCs 1 H (0-0) /100WBC ABG pCO2 at Pt Temp 46 H (32-45) mmHg ABG pCO2 (Temp Corrct 50 H (32-45) mmHg ABG pO2 (Temp Correct 114 H (83-108) ABG HCO3 32 H (22-26) mmol/L Sodium 132 L (135-145) mmol/L Chloride (96-108) mmol/L Carbon Dioxide (22-29) mmol/L BUN 24 H (9-16) mg/dL Random Glucose (60-115) mg/dL Lactic Acid (0.5-2.0) mmol/L Calcium 7.9 L D (8.4-10.2) mg/dL Total Bilirubin (0.0-1.0) mg/dL C-Reactive Protein (< or = 0.50) mg/dL Short CBC 05/02/21 05/03/21 Range/Units 23:58 08:09 WBC 12.6 H 9.3 (4.8-10.8) X10*3/uL Hgb 10.0 L 9.8 L (14.0-18.0) g/dl Hct 32.4 L 32.5 L (42.0-52.0) % Plt Count 164 110 L D (160-400) X10*3/uL BMP 05/02/21 05/03/21 23:58 08:09 Sodium 130 L 132 L Potassium 3.7 3.6 Chloride 90 L 98 Carbon Dioxide 30 H 22 BUN 23 H 24 H Creatinine 1.16 1.23 Calcium 8.9 D 7.9 L D Liver Function 05/02/21 Range/Units 23:58 Total Bilirubin 1.3 H (0.0-1.0) mg/dL All other labs normal. Assessment and Plan (1) Cellulitis: Qualifiers: Laterality: unspecified laterality Site of cellulitis: extremity Site of cellulitis of extremity: lower extremity Qualified Code(s): L03.119 - Cellulitis of unspecified part of limb Status: Acute (2) Bilateral leg ulcer: Status: Acute (3) Peripheral vascular disease: Status: Acute The patient presents with nonhealing ulcers especially in the right calf following a recent surgical procedure. I have not been able to completely examine the legs but findings due indicate surrounding erythema with granulation tissue at the wound base. No underlying abscess is appreciated. Arterial studies are significant for inflow disease bilaterally. Recommend further evaluation by Dr. Smith. Treatment of the arterial disease should help with wound healing. Procedures Date of Service Date of Service: 05/03/21
[2021-05-03] MEDS: Acetaminophen 325 MG TABLET 650 MG PO (17:39)
[2021-05-03] MEDS: vancomycin HCL 1,250 MG in 0.9 % Sodium Chloride 250 ML 166.67 MG IV (17:40)
--- NOTE | 2021-05-03 17:55 | PC.NURSE ---
Pt A&Ox3, medicated for 4/10 pain in his Bilateral hands, vanco running at this time. ST on monitor, pt questining BP medications, explained they are on hold due to not being HTN at the moment. Awaiting bed assignment, will continue to monitor.
--- NOTE | 2021-05-03 20:55 | MHC.CM.PN ---
Attempted to meet with admitted patient in ED OverFlow area with bed assignment pending. Pt is sleeping and on CPAP. Unable to complete interview. CM will need to meet with patient when he is awake. CM to follow for d/c needs.
[2021-05-04 03:16] VITALS: PULSE 106; RESP 24; O2SAT 93
[2021-05-04 04:15] LABS: PLT ABN DIST 1; WBC ABN SCTR FOR CBC 1
[2021-05-04 04:16] LABS: Hematocrit 28.5 % (42.0-52.0); Hemoglobin 8.7 g/dl (14.0-18.0); Mean Corpuscular HGB Conc 30.5 g/dl (31.0-36.0); Mean Corpuscular Hemoglobin 21.5 pg (27.0-33.0); Mean Corpuscular Volume 70.5 fL (80.0-98.0); Platelet Count 110 X10*3/uL (160-400); Red Blood Count 4.04 X10*6/uL (4.60-5.80); Red Cell Distribution Width 17.5 % (11.0-16.0)
[2021-05-04 04:20] LABS: White Blood Count 8.8 X10*3/uL (4.8-10.8)
[2021-05-04 04:22] LABS: Anion Gap 13 (12-20); Blood Urea Nitrogen 35 mg/dL (9-16); Calcium 8.1 mg/dL (8.4-10.2); Carbon Dioxide 27 mmol/L (22-29); Chloride 96 mmol/L (96-108); Creatinine Clr Calc Pharmacy 112.2; Estimated Glomerular Filt Rate > 60; Glucose Random 127 mg/dL (60-115); Sodium 132 mmol/L (135-145)
[2021-05-04 04:34] LABS: Vancomycin Trough 10.4 mcg/mL (10.0-20.0)
[2021-05-04 04:35] LABS: Band Neutrophils Percent 36 % (3-5); Lymphocytes Absolute Manual 0.2 X10*3/uL (1.2-4.9); Lymphocytes Percent Manual 2 % (20-40); Monocytes Absolute Manual 0.1 X10*3/uL (0.1-1.2); Monocytes Percent Manual 1 % (2-11); Neutrophils Absolute Manual 8.5 X10*3/uL (2.0-8.3); Neutrophils Percent Manual 61 % (45-73)
[2021-05-04 04:36] LABS: Dohle Bodies PRESENT; Hypochromasia 1+ (5-14) /OIF; Microcytosis 2+ (15-30) /OIF; Platelet Estimate SLIGHTLY DECREASED (NORMAL); Platelet Morphology Comment NORMAL; RBC Morphology NORMAL; Toxic Granulation PRESENT; Toxic Vacuolation PRESENT
[2021-05-04 05:47] VITALS: BP 107/65; PULSE 105; RESP 22; O2SAT 94
[2021-05-04] MEDS: Heparin Sodium,Porcine 5,000 UNIT/ML VIAL 5000 UNIT SUBCUT ×3 (05:54→22:50)
[2021-05-04] MEDS: Piperacillin Sodium/Tazobactam 4.5 GM in 0.9 % Sodium Chloride 100 ML IV ×4 (05:55→20:16)
[2021-05-04] MEDS: methylPREDNISolone Sod Succ 40 MG/ML VIAL IVPUSH ×2 (05:55→14:26)
--- NOTE | 2021-05-04 06:09 | PC.NURSE ---
Patient's Vancomycin dose from 1900 on 05/03/21 was noted to have not infused due to kinked IV. This RN fixed IV and infused the medication so that the dose was finished by 22:00. Hospitalist aware, approved giving 0600 dose of Vanco now.
[2021-05-04] MEDS: vancomycin HCL 1,250 MG in 0.9 % Sodium Chloride 250 ML 166.67 MG IV ×2 (06:21→17:45)
--- NOTE | 2021-05-04 09:00 | PC.NURSE ---
Pt A&Ox3, no complaints of pain, asking for leg lift, checked with management, no such device available, offered extra pillows. Lung sounds diminished in the bases, pt eating breakfast with no difficulty, asking for dougie bandages to be removed from legs, explained need for wraps to prevent swelling and to keep wounds covered. Heparin not given at this time due to midnight dose being given approx 6 hours late. NO drainage noted to either dressings at this time. 22G in LAC, pt aware he needs to keep his arm straight to continue the IV antibiotics, resecured at this time. Awaiting bed assignment. Call gomes within reach. Will continue to monitor. Pt self repositioned in bed.
[2021-05-04 09:07] VITALS: BP 121/64; PULSE 110; RESP 20; TEMP 37.2; O2SAT 96
--- NOTE | 2021-05-04 09:39 | P.CDIC_ITS ---
CDI Concurrent Query Documentation Clarification: PHYSICIAN'S DOCUMENTATION REQUEST Date of Query: 05/04/21 0939 Patient Name: Jose Miguel Balderrama Jr Admit Date: 05/03/21 Dear Doctor, A review of the medical record indicates additional documentation may be indicated. Please review below and update the documentation accordingly. Clinical Indicators: Risk Factors/Clinical Indicators/Treatments Per provider progress note 05/03/21: bilateral leg ulcer/cellulitis pt reports wounds have been present for two months or more since spider bite treated at [facility], was following with surgeon outpatient arterial Dopplers showing worsening of vascular disease -will consult vascular surgery -continue IV antibiotics Based on the above, could you please provide, in the Progress Notes, further information regarding the ulcer/wound: * Location of the ulcer/wound, including laterality * Type (etiology) of ulcer/wound: * Diabetic ulcer * Venous stasis ulcer * Arterial (ischemic) ulcer * Pressure (decubitus) ulcer * Traumatic wound * Non-healing surgical wound * Other * Unable to determine * For a non-pressure ulcer, please indicate the depth/severity: * Limited to the breakdown of skin * With fat layer exposed * With necrosis of muscle * With necrosis of bone * Other * Unable to determine * If a pressure ulcer, please also include the stage* of the ulcer: * Stage 1 - Skin intact, non-blanchable redness * Stage 2 - Partial thickness loss of dermis, includes intact or open blister * Stage 3 - Full thickness tissue not including bone, tendon, or muscle * Stage 4 - Full thickness tissue loss, including exposed bones, tendon, or muscle * Unstageable - Full thickness tissue loss in which the base of the ulcer is covered by slough (yellow, agosto, gutierrez, green or brown) and/or eschar (agosto, brown, or black) in the wound bed. * Suspected deep tissue injury - Purple or maroon localized area of discolored intact skin or blood-filled blister due to damage of underlying soft tissues from pressure and/or shear. The area may be preceded by tissue that is painful, firm, mushy, boggy, warmer, or cooler as compare to adjacent tissue. * Unable to determine *Source: National Pressure Ulcer Advisory Panel (NPUAP) Use of terms such as suspected, likely, concern for, or probable (associated with a specific diagnosis that is being evaluated, monitored, or treated as if it exists) are acceptable and can be coded in the inpatient setting, when documented at the time of discharge. Thank you, Michelle Cabrera RN Extension: [phone] Please use your independent medical judgment in providing your response. THIS QUERY IS PART OF THE PERMANENT MEDICAL RECORD Provider Response: Other Other Diagnosis: Multifactorial
--- NOTE | 2021-05-04 09:39 | MHC.CDI.CONC ---
CDI Concurrent Query Documentation Clarification: PHYSICIAN'S DOCUMENTATION REQUEST Date of Query: 05/04/21 0939 Patient Name: Jose Miguel Balderrama Jr Admit Date: 05/03/21 Dear Doctor, A review of the medical record indicates additional documentation may be indicated. Please review below and update the documentation accordingly. Clinical Indicators: Risk Factors/Clinical Indicators/Treatments Per provider progress note 05/03/21: bilateral leg ulcer/cellulitis pt reports wounds have been present for two months or more since spider bite treated at [facility], was following with surgeon outpatient arterial Dopplers showing worsening of vascular disease -will consult vascular surgery -continue IV antibiotics Based on the above, could you please provide, in the Progress Notes, further information regarding the ulcer/wound: Location of the ulcer/wound, including laterality Type (etiology) of ulcer/wound: Diabetic ulcer Venous stasis ulcer Arterial (ischemic) ulcer Pressure (decubitus) ulcer Traumatic wound Non-healing surgical wound Other Unable to determine For a non-pressure ulcer, please indicate the depth/severity: Limited to the breakdown of skin With fat layer exposed With necrosis of muscle With necrosis of bone Other Unable to determine If a pressure ulcer, please also include the stage* of the ulcer: Stage 1 - Skin intact, non-blanchable redness Stage 2 - Partial thickness loss of dermis, includes intact or open blister Stage 3 - Full thickness tissue not including bone, tendon, or muscle Stage 4 - Full thickness tissue loss, including exposed bones, tendon, or muscle Unstageable - Full thickness tissue loss in which the base of the ulcer is covered by slough (yellow, agosto, gutierrez, green or brown) and/or eschar (agosto, brown, or black) in the wound bed. Suspected deep tissue injury - Purple or maroon localized area of discolored intact skin or blood-filled blister due to damage of underlying soft tissues from pressure and/or shear. The area may be preceded by tissue that is painful, firm, mushy, boggy, warmer, or cooler as compare to adjacent tissue. Unable to determine *Source: National Pressure Ulcer Advisory Panel (NPUAP) Use of terms such as suspected, likely, concern for, or probable (associated with a specific diagnosis that is being evaluated, monitored, or treated as if it exists) are acceptable and can be coded in the inpatient setting, when documented at the time of discharge. Thank you, Michelle Cabrera RN Extension: [phone] Please use your independent medical judgment in providing your response. THIS QUERY IS PART OF THE PERMANENT MEDICAL RECORD Provider Response: Other Other Diagnosis: Multifactorial
--- NOTE | 2021-05-04 09:39 | PC.NURSE ---
Attempted to provide wound care, pt states the surgeon will be doing it today and refused wound care by this RN.
--- NOTE | 2021-05-04 09:56 | MHC.CM.PN ---
Addendum entered by Faye Santo RN 05/04/21 10:07: PER PT REQUEST CM TO FAX REFERRAL TO [facility] TO REVIEW OPTIONS FOR CHANGING HIS [facility] PLAN. Original Note: EMR REVIEWED, PT ADMITTED W/LE ULCERS, CM MET W/PT WHO IS A&OX3, PT REPORTS HE LIVES W/HIS SISTER IN AN APT IN [place], PT REPORTS HIS WOUND STARTED W/A SPIDER BITE AND NOW IS UNABLE TO WORK AND NEEDS ASSISTANCE FROM HIS SISTER, PT HAS NO DME HOWEVER HAS AN APPT [place] A SLEEP STUDY ON 06/08/20 [place] [facility] PT REPORTS HE HAS NO HOME SERVICES BUT NEEDS DISABILITY AND A LICENSING REPRESENTATIVE, PT REPORTS HIS SISTER CURRENTLY HELPS HIM AND HE CANNOT AFFORD A LICENSING REPRESENTATIVE, PT MADE AWARE HE WILL NEED TO WORK WITH HIS PCP FOR DISABILITY, PT REPORTS HIS PCP IS THROUGH [facility] HOWEVER CM DITCHER CONTACTED PT'S INSURANCE AND THEY HAVE CELE OBRIEN THROUGH [facility] LISTED, PT DENIES HCP AND DECLINES TO COMPLETE ONE AT THIS TIME. D/C PLAN: HOME NO SERVICES, SISTER FOR TRANSPORT.
--- NOTE | 2021-05-04 09:58 | P.CDIC_ITS ---
CDI Concurrent Query Documentation Clarification: PHYSICIAN'S DOCUMENTATION REQUEST Date of Query: 05/04/21 0958 Patient Name: Jose Miguel Balderrama Jr Admit Date: 05/03/21 Dear Doctor, A review of the medical record indicates additional documentation may be needed. Please review below and update the documentation accordingly. Clinical Indicators: The following diagnoses or signs and symptoms were noted in the patient record: Lab Tests: Imaging: Progress Notes: Nurse's Notes: Ancillary Notes: Other Documentation: Risk Factors/Clinical Indicators/Treatments Sodium 130 Received IVF NS Based on the above, could you clarify in the Progress Notes the appropriate diagnosis, if significant, that supports the above abnormalities and additional evaluation, monitoring, and/or treatment rendered: * Based on the above, please provide a diagnosis associated with the evaluation, monitoring and treatment of the patient's sodium level * Other (please specify) * Unable to determine Use of terms such as suspected, likely, concern for, or probable (associated with a specific diagnosis that is being evaluated, monitored, or treated as if it exists) are acceptable and can be coded in the inpatient setting, when documented at the time of discharge. Thank you, Michelle Cabrera RN Extension: [phone] Please use your independent medical judgment in providing your response. THIS QUERY IS PART OF THE PERMANENT MEDICAL RECORD Provider Response: Other Other Diagnosis: Hyponatremia, cause unclear and now resolved
--- NOTE | 2021-05-04 11:11 | HO.PM.IMPN ---
Subjective Subjective Date of Service: 05/04/21 Interval History: seen and examined this morning follow up for leg wounds/respiratory failure denies shortness of breath or coughing, feels that his breathing is at baseline despite requiring supplemental oxygen Physical Exam Vital Signs: Vital Signs: Last Vital Signs Temp 98.9 F 05/04/21 09:07 Pulse 110 H 05/04/21 09:07 Resp 20 05/04/21 09:07 BP 121/64 05/04/21 09:07 Pulse Ox 96 05/04/21 09:07 Oxygen Flow Rate 14 05/02/21 23:45 BMI result Body Mass Index 49.2 Const: General: cooperative, comfortable, no acute distress, alert and awake Nutritional Appearance: obese Orientation/consciousness: patient oriented x3 HENMT: Head: Yes normocephalic and Yes atraumatic Eyes: Sclerae: sclerae normal Resp: Effort & Inspection: normal respiratory effort and no respiratory distress Cardio: Rate: regular rate Rhythm: regular rhythm GI: Palpation (GI): Soft to palpation and nontender : Other: bradford draining clear yellow urine Skin: Other: Neuro: General: patient oriented x3 Cranial nerves: Yes CN's II-XII intact bilaterally and Yes Bilaterally intact EOM present Objective Data Active Medications Acetaminophen (Acetaminophen 325 Mg Tablet) 650 mg PO Q6H PRN PRN Reason: Pain, Mild (Pain Scale 1-3) Last Admin: 05/03/21 17:39 Dose: 650 mg Documented by: GISELA Albuterol/Ipratropium (Albuterol/Iprat 2.5/0.5mg 3 Ml Ampul.Neb) 3 ml INHALE RQ6H PRN PRN Reason: Shortness of Breath Docusate Sodium (Docusate Sodium 100 Mg Capsule) 100 mg PO DAILY PRN PRN Reason: Constipation Heparin Sodium (Porcine) (Heparin Sodium,Porcine 5,000 Unit/Ml Vial) 5,000 unit SUBCUT Q8H [facility] Last Admin: 05/04/21 08:45 Dose: Not Given Documented by: GISELA Non-Admin Reason: Previously Administered Piperacillin Sod/Tazobactam (Sod 4.5 gm/ Sodium Chloride) 100 mls @ 200 mls/hr IV Q6H [facility] Last Admin: 05/04/21 08:46 Dose: 200 mls/hr Documented by: GISELA Vancomycin HCl 1,250 mg/ (Sodium Chloride) 250 mls @ 166.667 mls/hr IV Q12H [facility] Last Infusion: 05/04/21 07:33 Dose: 0 mls/hr Documented by: GISELA Methylprednisolone Sodium Succinate (Methylprednisolone Sod Succ 40 Mg/Ml Vial) 40 mg IVPUSH Q12H [facility] Last Admin: 05/04/21 05:55 Dose: 40 mg Documented by: EMANUEL Ondansetron HCl (Ondansetron Hcl 4 Mg/2 Ml Vial) 4 mg IVPUSH Q8H PRN PRN Reason: Nausea and Vomiting Pharmacy Consult (Consult Rx Vancomycin Dosing) 1 each MISCELLANE DAILY PRN PRN Reason: Consult order Pharmacy Consult (Consult Rx Vancomycin Dosing) 1 each MISCELLANE DAILY PRN PRN Reason: Consult order Sodium Chloride (0.9 % Sodium Chloride Flush 3 Ml Syringe) 3 ml IVFLUSH QSHIFT [facility] Last Admin: 05/04/21 08:51 Dose: Not Given Documented by: GISELA Non-Admin Reason: IV Running Labs CBC & Chem 7: 05/04/21 04:03 05/04/21 04:03 Labs: Laboratory Results - last 24 hr 05/04/21 05/04/21 05/04/21 04:03 04:03 04:03 MCV 70.5 L MCH 21.5 L MCHC 30.5 L RDW 17.5 H Plt Count 110 L MPV TNP Immature Gran % (Auto) Cancelled Neut % (Auto) Cancelled Lymph % (Auto) Cancelled Fajardo % (Auto) Cancelled Eos % (Auto) Cancelled Baso % (Auto) Cancelled Lymph # (Auto) Cancelled Fajardo # (Auto) Cancelled Eos # (Auto) Cancelled Baso # (Auto) Cancelled Abs Immat Gran (auto) Cancelled Absolute Neuts (auto) Cancelled Absolute Nucleated RBC 0.000 Nucleated RBC % (auto) 0.0 Neutrophils % (Manual) 61 Band Neutrophils % 36 H Lymphocytes % (Manual) 2 L Monocytes % (Manual) 1 L Abs Neuts (Manual) 8.5 H Lymphocytes # (Manual) 0.2 L Monocytes # (Manual) 0.1 Toxic Granulation PRESENT Toxic Vacuolation PRESENT Dohle Bodies PRESENT Platelet Estimate SLIGHTLY DECREASED Plt Morphology Comment NORMAL RBC Morphology NORMAL Hypochromasia 1+ (5-14) Microcytosis 2+ (15-30) Anion Gap 13 Estim Creat Clear Calc 112.2 Estimated GFR > 60 Random Glucose 127 H Calcium 8.1 L Vancomycin Trough 10.4 Microbiology Microbiology Results: Microbiology 05/02/21 23:58 Blood Culture - Preliminary Blood - Venous Prelim: GPC Gram Stain only 05/02/21 23:58 Blood Culture - Preliminary Blood - Venous Prelim: GPC Gram Stain only Assessment and Plan (1) Peripheral vascular disease: Status: Acute (2) Acute respiratory failure with hypoxia: Status: Acute (3) Bilateral leg ulcer: Status: Acute (4) Pneumonia: Status: Acute Assessment and Plan: This is a 45-year-old male with past medical history of hypertension who presents to the hospital with chronic leg ulcers found to have pneumonia, sepsis and respiratory failure sepsis secondary to pneumonia vs bilateral leg ulcer/cellulitis lactic acid 2.2, received 300cc/kg bolus in ED continue vancomycin and zosyn bacteremia 2/ Blood cultures from 05/02 growing gram positive cocci continue IV abx follow up final BCx, repeat blood cultures from 05/03 bilateral leg ulcer/cellulitis likely related to previous trauma and underlying vascular disease pt reports wounds have been present for two months or more since spider bite treated at [facility], was following with surgeon outpatient arterial Dopplers showing worsening of vascular disease -vascular surgery consult pending -continue IV antibiotics as above -will attempt to obtain records from [facility] acute hypoxic respiratory failure likely multifactorial r/t underlying pneumonia, obesity hypoventilation and NIKKI CTA negative for PE - continue supplemental o2, CPAP at bedtime - prn breathing treatments pneumonia/pneumonitis COVID-19, influenza, RSV negative possible bacterial vs pneumonitis; h/o drug use - continue broad-spectrum IV antibiotic - continue IV solu-medrol thrombocytopenia likely r/t acute illness follow CBC chronic microcytic anemia H/H within baseline follow CBC HTN on norvasc, HCTZ at baseline given sepsis will hold off BP meds at this time monitor BP closely, resume BP meds as BP allows morbid obesity BMI 49.3 contributing to respiratory failure weight loss encouraged NIKKI non - compliant with CPAP DVT prophylaxis: Heparin subQ attending: dr. barbosa Quality Stroke Does the patient have a stroke diagnosis?: No VTE Prior VTE?: No VTE Risk Level:: Medical - moderate - high VTE Device Contraindication: Treatment Not Indicated VTE Drug Contraindication: N/A - Med Ordered
--- NOTE | 2021-05-04 11:34 | PC.NURSE ---
Sister at bedside, giving pt bed bath at this time. No complaints of pain, per sister, pt would like pain medication at dressing change. Floor RN Bibi made aware. Pt to floor at this time.
[2021-05-04 13:03] VITALS: PULSE 104; RESP 19; TEMP 36.7; O2SAT 96
--- NOTE | 2021-05-04 13:21 | PM.CNGS ---
History of Present Illness Consult details Consult date: 05/04/21 Reason for consult: wound care Narrative: Very complex 45-year-old gentleman presents for evaluation regarding nonhealing lower extremity ulcerations. He had originally presented to [facility] after a spider bite where he reports that he was treated with some antibiotics and a surgical procedure was done to open up the wounds. Was subsequently discharged. He reports that he was also treated at [facility] in a special Hematology-Oncology unit where he reports there may have been some sort of lupus variant that he is positive for. He was subsequently discharged and actually has a follow-up scheduled at [facility]. In the interim he started to develop fever chills and his sister brought him in to [facility]. He was subsequently admitted and treated with IV antibiotics. He now presents to us for vascular evaluation. Review of Systems Constitutional: Constitutional: Reports as per HPI ENT: Reports system reviewed and no additional complaints, except as documented Cardiovascular: Cardiovascular: Denies chest pain, Denies chest pain at rest and Denies chest pain with activity Respiratory: Respiratory: Denies chest congestion and Denies cough Gastrointestinal: Gastrointestinal: Reports no additional gastrointestinal complaints Musculoskeletal: Musculoskeletal: Denies abnormal gait Integumentary/Breasts: Skin/Breast: Reports pruritus and Denies wounds Neurologic: Reports system reviewed and no additional complaints, except as documented and Denies abnormal gait Psychiatric: Psychiatric: Denies no additional psychiatric complaints PMFSH Past Medical History Medical History Allergies HTN (hypertension) Iron deficiency anemia Sleep apnea Surgical History Surgical History No pertinent past surgical history Social History Social History Household Members: Family Housing: Apartment Do you presently have visiting nurse or other home services: No Alcohol intake: former Patient Tobacco Use Status: Never used Tobacco Second Hand Smoke Exposure: No Substance Use Type: Marijuana service: No Current occupational status: unemployed Meds Allergies Allergy/AdvReac Type Severity Reaction Status Date / Time No Known Allergies Allergy Verified 06/01/20 15:37 Active Medications: Current Medications Acetaminophen (Acetaminophen 325 Mg Tablet) 650 mg PO Q6H PRN PRN Reason: Pain, Mild (Pain Scale 1-3) Last Admin: 05/03/21 17:39 Dose: 650 mg Documented by: Albuterol/Ipratropium (Albuterol/Iprat 2.5/0.5mg 3 Ml Ampul.Neb) 3 ml INHALE RQ6H PRN PRN Reason: Shortness of Breath Docusate Sodium (Docusate Sodium 100 Mg Capsule) 100 mg PO DAILY PRN PRN Reason: Constipation Heparin Sodium (Porcine) (Heparin Sodium,Porcine 5,000 Unit/Ml Vial) 5,000 unit SUBCUT Q8H [facility] Last Admin: 05/04/21 08:45 Dose: Not Given Documented by: Piperacillin Sod/Tazobactam (Sod 4.5 gm/ Sodium Chloride) 100 mls @ 200 mls/hr IV Q6H [facility] Last Infusion: 05/04/21 11:14 Dose: Infused Documented by: Vancomycin HCl 1,250 mg/ (Sodium Chloride) 250 mls @ 166.667 mls/hr IV Q12H [facility] Last Infusion: 05/04/21 07:33 Dose: Infused Documented by: Methylprednisolone Sodium Succinate (Methylprednisolone Sod Succ 40 Mg/Ml Vial) 40 mg IVPUSH Q12H [facility] Last Admin: 05/04/21 05:55 Dose: 40 mg Documented by: Ondansetron HCl (Ondansetron Hcl 4 Mg/2 Ml Vial) 4 mg IVPUSH Q8H PRN PRN Reason: Nausea and Vomiting Pharmacy Consult (Consult Rx Vancomycin Dosing) 1 each MISCELLANE DAILY PRN PRN Reason: Consult order Pharmacy Consult (Consult Rx Vancomycin Dosing) 1 each MISCELLANE DAILY PRN PRN Reason: Consult order Sodium Chloride (0.9 % Sodium Chloride Flush 3 Ml Syringe) 3 ml IVFLUSH QSHIFT [facility] Last Admin: 05/04/21 08:51 Dose: Not Given Documented by: Home Medications Medication Instructions Recorded Confirmed Last Taken Type amlodipine 10 mg tablet 1 tab PO DAILY 05/03/21 05/03/21 05/02/21 History gabapentin 300 mg capsule 1 cap PO TID PRN 05/03/21 05/03/21 Unknown History hydrochlorothiazide 12.5 mg tablet 1 tab PO DAILY 05/03/21 05/03/21 05/02/21 History Physical Exam Vital Signs: Vital Signs: Last Vital Signs Temp 98.0 F 05/04/21 13:03 Pulse 104 H 05/04/21 13:03 Resp 19 05/04/21 13:03 BP 121/64 05/04/21 09:07 Pulse Ox 96 05/04/21 13:03 Oxygen Flow Rate 14 05/02/21 23:45 BMI result Body Mass Index 49.2 Const: General: cooperative, healthy appearing and comfortable Orientation/consciousness: oriented to person, oriented to place and oriented to time Neck: Carotids: no bruits Chest: Chest palpation & inspection: normal inspection of the chest and normal palpation of entire chest wall Resp: Effort & Inspection: normal respiratory effort and able to speak in complete sentences Cardio: Rate: regular rate Heart sounds: S1 normal heart sound present and S2 normal heart sound present Peripheral pulses: Peripheral pulses 2+ throughout GI: Inspection: Yes normal to inspection Skin: Other: +3 edema, blister dorsum of foot with loss of dermis bilateral General skin exam: dry skin Neuro: General: oriented to person, oriented to place and oriented to time Extrem: General: Yes edema Right lower extremity: full ROM, normal capillary refill and edema Left lower extremity: full ROM, normal capillary refill and edema Psych: Mental Status: mental status grossly normal Results Labs Result diagrams: 05/04/21 04:03 05/04/21 04:03 Labs: Abnormal lab results 05/04/21 05/04/21 Range/Units 04:03 04:03 RBC 4.04 L (4.60-5.80) X10*6/uL Hgb 8.7 L (14.0-18.0) g/dl Hct 28.5 L (42.0-52.0) % MCV 70.5 L (80.0-98.0) fL MCH 21.5 L (27.0-33.0) pg MCHC 30.5 L (31.0-36.0) g/dl RDW 17.5 H (11.0-16.0) % Plt Count 110 L (160-400) X10*3/uL Band Neutrophils % 36 H (3-5) % Lymphocytes % (Manual) 2 L (20-40) % Monocytes % (Manual) 1 L (2-11) % Abs Neuts (Manual) 8.5 H (2.0-8.3) X10*3/uL Lymphocytes # (Manual) 0.2 L (1.2-4.9) X10*3/uL Sodium 132 L (135-145) mmol/L BUN 35 H (9-16) mg/dL Random Glucose 127 H (60-115) mg/dL Calcium 8.1 L (8.4-10.2) mg/dL Short CBC 05/04/21 Range/Units 04:03 WBC 8.8 (4.8-10.8) X10*3/uL Hgb 8.7 L (14.0-18.0) g/dl Hct 28.5 L (42.0-52.0) % Plt Count 110 L (160-400) X10*3/uL BMP 05/04/21 04:03 Sodium 132 L Potassium 4.0 Chloride 96 Carbon Dioxide 27 BUN 35 H Creatinine 1.26 Calcium 8.1 L All other labs normal. Assessment and Plan (1) Peripheral vascular disease: Status: Acute There is an element of peripheral vascular disease as it appears that he has lower extremity monophasic flow on noninvasive testing. It appears that there may be in inflow disease. It appears to be chronic and stable at the current time. Would continue to follow this. (2) Venous insufficiency of both lower extremities: Status: Acute He has significant edema bilateral lower extremities. He is currently controlled with local Raúl wraps which I agree with. As an outpatient he needs to be worked up for venous insufficiency as well. Will be happy to see him as an outpatient. Thank you for allowing us to assist in his care. (3) Bilateral leg ulcer: Status: Acute Open ulcers to bilateral dorsum of feet. Would treat with Silvadene cream daily. Thank you for allowing us to assist in his care. Procedures Date of Service Date of Service: 05/04/21
[2021-05-04 15:40] VITALS: BP 139/69; PULSE 113; RESP 19; TEMP 37.1; O2SAT 97
--- NOTE | 2021-05-04 15:57 | MHC.CM.PN ---
CM RECEIVED MESSAGE FROM [facility] REPORTING PT HAS BEEN UPGRADED T [facility] STANDARD.
[2021-05-04] MEDS: 0.9 % Sodium Chloride Flush 3 ML SYRINGE IVFLUSH ×2 (16:10→20:17)
[2021-05-04] MEDS: Acetaminophen 325 MG TABLET 650 MG PO (17:02)
[2021-05-04 19:40] VITALS: BP 136/89; PULSE 110; RESP 19; TEMP 36.9; O2SAT 93
[2021-05-05] VITALS: BP 132/80; PULSE 110; RESP 18; TEMP 37.2; O2SAT 99
[2021-05-05] MEDS: methylPREDNISolone Sod Succ 40 MG/ML VIAL IVPUSH ×2 (03:40→14:48)
[2021-05-05] MEDS: Piperacillin Sodium/Tazobactam 4.5 GM in 0.9 % Sodium Chloride 100 ML IV (03:42)
[2021-05-05 03:46] VITALS: BP 152/67; PULSE 119; RESP 20; TEMP 36.7; O2SAT 93
[2021-05-05] MEDS: vancomycin HCL 1,250 MG in 0.9 % Sodium Chloride 250 ML 166.7 MG IV (04:22)
[2021-05-05 06:49] LABS: Anion Gap 13 (12-20); Blood Urea Nitrogen 24 mg/dL (9-16); Calcium 8.5 mg/dL (8.4-10.2); Carbon Dioxide 29 mmol/L (22-29); Chloride 100 mmol/L (96-108); Estimated Glomerular Filt Rate > 60; Glucose Random 163 mg/dL (60-115); Potassium 3.7 mmol/L (3.3-5.1); Sodium 138 mmol/L (135-145)
[2021-05-05 06:54] LABS: Hematocrit 27.2 % (42.0-52.0); Hemoglobin 8.4 g/dl (14.0-18.0); Mean Corpuscular HGB Conc 30.9 g/dl (31.0-36.0); Mean Corpuscular Hemoglobin 21.6 pg (27.0-33.0); Mean Corpuscular Volume 70.1 fL (80.0-98.0); Mean Platelet Volume 11.4 fL (9.4-12.4); NRBC Pct Auto 0.2 /100WBC (0.0-0.2); Platelet Count 182 X10*3/uL (160-400); Red Blood Count 3.88 X10*6/uL (4.60-5.80); Red Cell Distribution Width 17.5 % (11.0-16.0); White Blood Count 10.9 X10*3/uL (4.8-10.8)
[2021-05-05 07:02] VITALS: BP 132/95; PULSE 110; RESP 16; TEMP 36.6; O2SAT 97
[2021-05-05 07:16] LABS: Band Neutrophils Percent 18 % (3-5); Lymphocytes Absolute Manual 0.7 X10*3/uL (1.2-4.9); Lymphocytes Percent Manual 6 % (20-40); Monocytes Absolute Manual 0.2 X10*3/uL (0.1-1.2); Monocytes Percent Manual 2 % (2-11); Neutrophils Percent Manual 74 % (45-73)
[2021-05-05 07:17] LABS: RBC Morphology NOTED
[2021-05-05 07:18] LABS: Acanthocytes 1+ (0-2) /OIF; Dohle Bodies PRESENT; Hypochromasia 1+ (5-14) /OIF; Ovalocytes 1+ (5-14) /OIF
[2021-05-05 07:19] LABS: Microcytosis 2+ (15-30) /OIF; Platelet Estimate NORMAL (NORMAL); Platelet Morphology Comment NORMAL; Toxic Granulation PRESENT; Toxic Vacuolation PRESENT
--- NOTE | 2021-05-05 10:13 | P.PNIM_ITS ---
Subjective Subjective Date of Service: 05/05/21 <EROS Thompson - Last Filed: 05/05/21 17:10> 05/06/21 <Jeromy Katz MD - Last Filed: 05/06/21 10:19> Interval History: seen and examined this morning follow up for respiratory failure, leg wounds denies shortness of breath or cough did not use cpap overnight due to discomfort from mask <EROS Thompson - Last Filed: 05/05/21 17:10> Review of Systems Review of Systems: Yes all other systems are reviewed and are negative <EROS Thompson - Last Filed: 05/05/21 17:10> Constitutional Constitutional: Denies chills and Denies fever(s) <EROS Thompson - Last Filed: 05/05/21 17:10> Cardiovascular Cardiovascular: Denies chest pain <EROS Thompson - Last Filed: 05/05/21 17:10> Respiratory Respiratory: Denies cough <EROS Thompson - Last Filed: 05/05/21 17:10> Gastrointestinal Gastrointestinal: Denies abdominal pain <EROS Thompson - Last Filed: 05/05/21 17:10> Physical Exam Vital Signs: Vital Signs: Last Vital Signs Temp 98 F 05/05/21 07:02 Pulse 110 H 05/05/21 07:02 Resp 16 05/05/21 07:02 BP 132/95 H 05/05/21 07:02 Pulse Ox 97 05/05/21 07:02 Oxygen Flow Rate 14 05/02/21 23:45 BMI result Body Mass Index 49.2 <EROS Thompson - Last Filed: 05/05/21 17:10> Const: General: cooperative, comfortable, no acute distress, alert and awake <EROS Thompson - Last Filed: 05/05/21 17:10> Nutritional Appearance: obese <EROS Thompson - Last Filed: 05/05/21 17:10> Orientation/consciousness: patient oriented x3 <EROS Thompson - Last Filed: 05/05/21 17:10> HENMT: Head: Yes normocephalic and Yes atraumatic <EROS Thompson - Last Filed: 05/05/21 17:10> Eyes: Sclerae: sclerae normal <EROS Thompson - Last Filed: 05/05/21 17:10> Resp: Other: diminshed breath sounds b/l bases <EROS Thompson - Last Filed: 05/05/21 17:10> Effort & Inspection: normal respiratory effort and no respiratory distress <EROS Thompson - Last Filed: 05/05/21 17:10> Cardio: Rate: regular rate <EROS Thompson - Last Filed: 05/05/21 17:10> Rhythm: regular rhythm <EROS Thompson - Last Filed: 05/05/21 17:10> GI: Palpation (GI): Soft to palpation and nontender <EROS Thompson - Last Filed: 05/05/21 17:10> : Other: bradford draining clear yellow urine <EROS Thompson - Last Filed: 05/05/21 17:10> Neuro: General: patient oriented x3 <EROS Thompson - Last Filed: 05/05/21 17:10> Cranial nerves: Yes CN's II-XII intact bilaterally and Yes Bilaterally intact EOM present <EROS Thompson - Last Filed: 05/05/21 17:10> Extrem: Other: b/l legs wrapped in dougie bandages <EROS Thompson - Last Filed: 05/05/21 17:10> Objective Data Active Medications Acetaminophen (Acetaminophen 325 Mg Tablet) 650 mg PO Q6H PRN PRN Reason: Pain, Mild (Pain Scale 1-3) Last Admin: 05/04/21 17:02 Dose: 650 mg Documented by: WINIFRED Albuterol/Ipratropium (Albuterol/Iprat 2.5/0.5mg 3 Ml Ampul.Neb) 3 ml INHALE RQ6H PRN PRN Reason: Shortness of Breath Docusate Sodium (Docusate Sodium 100 Mg Capsule) 100 mg PO DAILY PRN PRN Reason: Constipation Heparin Sodium (Porcine) (Heparin Sodium,Porcine 5,000 Unit/Ml Vial) 5,000 unit SUBCUT Q8H [facility] Last Admin: 05/04/21 22:50 Dose: 5,000 unit Documented by: DAHLIA Piperacillin Sod/Tazobactam (Sod 4.5 gm/ Sodium Chloride) 100 mls @ 200 mls/hr IV Q6H [facility] Last Infusion: 05/05/21 04:23 Dose: 0 mls/hr Documented by: DAHLIA Vancomycin HCl 1,250 mg/ (Sodium Chloride) 250 mls @ 166.667 mls/hr IV Q12H [facility] Last Infusion: 05/05/21 05:54 Dose: 0 mls/hr Documented by: DAHLIA Methylprednisolone Sodium Succinate (Methylprednisolone Sod Succ 40 Mg/Ml Vial) 40 mg IVPUSH Q12H [facility] Last Admin: 05/05/21 03:40 Dose: 40 mg Documented by: DAHLIA Ondansetron HCl (Ondansetron Hcl 4 Mg/2 Ml Vial) 4 mg IVPUSH Q8H PRN PRN Reason: Nausea and Vomiting Pharmacy Consult (Consult Rx Vancomycin Dosing) 1 each MISCELLANE DAILY PRN PRN Reason: Consult order Pharmacy Consult (Consult Rx Vancomycin Dosing) 1 each MISCELLANE DAILY PRN PRN Reason: Consult order Sodium Chloride (0.9 % Sodium Chloride Flush 3 Ml Syringe) 3 ml IVFLUSH QSHIFT [facility] Last Admin: 05/04/21 20:17 Dose: 3 ml Documented by: DAHLIA <EROS Thompson - Last Filed: 05/05/21 17:10> Labs CBC & Chem 7: : 05/06/21 05:41 05/06/21 05:41 <EROS Thompson - Last Filed: 05/05/21 17:10> Labs: Laboratory Results - last 24 hr 05/05/21 05/05/21 05:48 05:48 MCV 70.1 L MCH 21.6 L MCHC 30.9 L RDW 17.5 H Plt Count 182 D MPV 11.4 Immature Gran % (Auto) Cancelled Neut % (Auto) Cancelled Lymph % (Auto) Cancelled Coffey % (Auto) Cancelled Eos % (Auto) Cancelled Baso % (Auto) Cancelled Lymph # (Auto) Cancelled Coffey # (Auto) Cancelled Eos # (Auto) Cancelled Baso # (Auto) Cancelled Abs Immat Gran (auto) Cancelled Absolute Neuts (auto) Cancelled Absolute Nucleated RBC 0.020 H Nucleated RBC % (auto) 0.2 Neutrophils % (Manual) 74 H Band Neutrophils % 18 H Lymphocytes % (Manual) 6 L Monocytes % (Manual) 2 Abs Neuts (Manual) 10.0 H Lymphocytes # (Manual) 0.7 L Monocytes # (Manual) 0.2 Toxic Granulation PRESENT Toxic Vacuolation PRESENT Dohle Bodies PRESENT Platelet Estimate NORMAL Plt Morphology Comment NORMAL RBC Morphology NOTED Hypochromasia 1+ (5-14) Microcytosis 2+ (15-30) Ovalocytes 1+ (5-14) Acanthocytes (Spur) 1+ (0-2) Anion Gap 13 Estim Creat Clear Calc 179.0 Estimated GFR > 60 Random Glucose 163 H Calcium 8.5 <EROS Thompson - Last Filed: 05/05/21 17:10> Microbiology Microbiology Results: Microbiology 05/02/21 23:58 Blood Culture - Preliminary Blood - Venous Group g streptococcus 05/02/21 23:58 Blood Culture - Preliminary Blood - Venous Group g streptococcus 05/03/21 16:34 Blood Culture - Preliminary Blood - Venous No growth after 24 hours. 05/03/21 00:17 Urine Culture - Final Urine Catheterized - Bradford Catheter No growth. <EROS Thompson - Last Filed: 05/05/21 17:10> Assessment and Plan (1) NIKKI (obstructive sleep apnea): Status: Acute <EROS Thompson - Last Filed: 05/05/21 17:10> (2) Morbid obesity: Status: Acute <EROS Thompson - Last Filed: 05/05/21 17:10> (3) Peripheral vascular disease: Status: Acute <EROS Thompson - Last Filed: 05/05/21 17:10> (4) Sepsis: Status: Acute <EROS Thompson - Last Filed: 05/05/21 17:10> Assessment and Plan: This is a 45-year-old male with past medical history of hypertension who presents to the hospital with chronic leg ulcers found to have pneumonia, sepsis and respiratory failure sepsis secondary to pneumonia vs leg ulcer/cellulitis lactic acid 2.2, received 300cc/kg bolus in ED bacteremia 2/2 BCx from 05/02 growing group G strep repeat BCx from 05/03 negative to date will change abx from vanc/zosyn to ceftriaxone ID consult echo bilateral leg ulcers likely related to previous trauma from spider bit and underlying vascular disease pt reports wounds have been present for two months or more since spider bite and was following with surgeon outpatient arterial Dopplers showing worsening of vascular disease seen by vascular surgery, no need for inpatient intervention, recommends outpatient follow up for venous insuffieciency workup continue local wound care acute hypoxic respiratory failure likely multifactorial r/t underlying pneumonia, obesity hypoventilation and NIKKI CTA negative for PE - continue supplemental o2, CPAP at bedtime - prn breathing treatments - overnight oximetry prior to d/c to qualify for o2 at night until able to receive cpap machine pneumonia/pneumonitis COVID-19, influenza, RSV negative possible bacterial vs pneumonitis; h/o drug use - continue IV antibiotics - continue IV solu-medrol - pulmonary consult pending thrombocytopenia likely r/t acute illness. improved follow CBC chronic microcytic anemia H/H within baseline follow CBC HTN on norvasc, HCTZ at baseline given sepsis will hold off BP meds at this time monitor BP closely, resume BP meds as BP allows morbid obesity BMI 49.3 contributing to respiratory failure weight loss encouraged NIKKI non - compliant with CPAP DVT prophylaxis: Heparin subQ attending: dr. katz <EROS Thompson - Last Filed: 05/05/21 17:10> Quality Stroke Does the patient have a stroke diagnosis?: No <EROS Thompson - Last Filed: 05/05/21 17:10> VTE Prior VTE?: No <EROS Thompson - Last Filed: 05/05/21 17:10> VTE Risk Level:: Medical - moderate - high <EROS Thompson - Last Filed: 05/05/21 17:10> VTE Device Contraindication: Treatment Not Indicated <EROS Thompson Last Filed: 05/05/21 17:10> VTE Drug Contraindication: N/A - Med Ordered <EROS Thompson - Last Filed: 05/05/21 17:10>
--- NOTE | 2021-05-05 10:22 | P.CONPL_ITS ---
History of Present Illness History of Present Illness Consult date: 05/05/21 Reason for consult: hypoxemia and other (NIKKI) Chief complaint: PNA, Lower extremity ulcers Narrative: This 45 years old gentleman is admitted since 05/03, mainly because of painful also hours on both legs, with low-grade fever, Pain and inability to take care of this at home. He claims that he had some spider bites on the legs about 2 months ago and since then continues to have nonhealing ulcers. The patient also complained of mild cough and shortness of breath, with questionable fever. His shortness of breath was basically normal, and as usual. This gentleman is morbidly obese, and probably has chronic stasis edema of the legs, poor feet and leg care, as he is mostly in bed or chair. I talked to him about obstructive sleep apnea. He has had no sleep study so for, but he tells me that he has appointment for a sleep study at [facility] in mid May. Apparently he has been hospitalized at [facility] in the past and during his hospital stay he was treated with CPAP or BiPAP. He does not like to use the mask. Patient is also confused about who is his primary care physician. He told me somebody in the [facility] [place]. Since admission he has been, on oxygen supplementation because of significant hypoxemia, and he has been on BiPAP at night. He does not like to wear the mask, and points to his bridge of the nose very has a mild ecchymosis. Patient denied having had any bronchial asthma or COPD in the past. He denies smoking cigarettes or using any illicit drugs. Review of Systems Review of Systems: Patient denies any other significant symptoms except what is described in the HPI. [facility] Past Medical History Medical History Allergies HTN (hypertension) Iron deficiency anemia Morbid obesity NIKKI (obstructive sleep apnea) Restrictive lung disease Sleep apnea Surgical History Surgical History No pertinent past surgical history Social History Social History Household Members: Family Housing: Apartment Do you presently have visiting nurse or other home services: No Alcohol intake: former Patient Tobacco Use Status: Never used Tobacco Second Hand Smoke Exposure: No Substance Use Type: Marijuana service: No Current occupational status: unemployed Meds Allergies Allergy/AdvReac Type Severity Reaction Status Date / Time No Known Allergies Allergy Verified 06/01/20 15:37 Active Medications: Current Medications Acetaminophen (Acetaminophen 325 Mg Tablet) 650 mg PO Q6H PRN PRN Reason: Pain, Mild (Pain Scale 1-3) Last Admin: 05/04/21 17:02 Dose: 650 mg Documented by: Albuterol/Ipratropium (Albuterol/Iprat 2.5/0.5mg 3 Ml Ampul.Neb) 3 ml INHALE RQ6H PRN PRN Reason: Shortness of Breath Docusate Sodium (Docusate Sodium 100 Mg Capsule) 100 mg PO DAILY PRN PRN Reason: Constipation Heparin Sodium (Porcine) (Heparin Sodium,Porcine 5,000 Unit/Ml Vial) 5,000 unit SUBCUT Q8H [facility] Last Admin: 05/04/21 22:50 Dose: 5,000 unit Documented by: Ceftriaxone Sodium 1 gm/ (Sodium Chloride) 50 mls @ 100 mls/hr IV Q24H [facility] Methylprednisolone Sodium Succinate (Methylprednisolone Sod Succ 40 Mg/Ml Vial) 40 mg IVPUSH Q12H [facility] Last Admin: 05/05/21 03:40 Dose: 40 mg Documented by: Ondansetron HCl (Ondansetron Hcl 4 Mg/2 Ml Vial) 4 mg IVPUSH Q8H PRN PRN Reason: Nausea and Vomiting Pharmacy Consult (Consult Rx Vancomycin Dosing) 1 each MISCELLANE DAILY PRN PRN Reason: Consult order Pharmacy Consult (Consult Rx Vancomycin Dosing) 1 each MISCELLANE DAILY PRN PRN Reason: Consult order Sodium Chloride (0.9 % Sodium Chloride Flush 3 Ml Syringe) 3 ml IVFLUSH QSHIFT [facility] Last Admin: 05/04/21 20:17 Dose: 3 ml Documented by: Home Medications Medication Instructions Recorded Confirmed Last Taken Type amlodipine 10 mg tablet 1 tab PO DAILY 05/03/21 05/03/21 05/02/21 History gabapentin 300 mg capsule 1 cap PO TID PRN 05/03/21 05/03/21 Unknown History hydrochlorothiazide 12.5 mg tablet 1 tab PO DAILY 05/03/21 05/03/21 05/02/21 History Physical Exam Vital Signs: Vital Signs: Last Vital Signs Temp 98 F 05/05/21 07:02 Pulse 110 H 05/05/21 07:02 Resp 16 05/05/21 07:02 BP 132/95 H 05/05/21 07:02 Pulse Ox 97 05/05/21 07:02 Oxygen Flow Rate 14 05/02/21 23:45 BMI result Body Mass Index 49.2 Const: Other: Patient is visibly, morbidly obese, he does converse well, seems to understand. Has a round face very narrow oropharynx, and a very short and obese neck . General: comfortable, no acute distress, alert and awake Orientation/consciousness: patient oriented x3 HENMT: Head: Yes normal to inspection General nose exam: No nasal polyps present and No nasal discharge present Face and sinus: Yes sinuses nontender Mouth: oropharynx abnormals (Very narrow and crowded, Mallampati class 4) Throat: No posterior oropharynx normal (Not visualized clearly) Eyes: General: appearance normal, both eyes and all related structures Neck: Other: Very obese and short Neck: Yes normal visual inspection, Yes no lymphadenopathy, Yes trachea midline and Yes no JVD Thyroid: Thyroid normal Chest: Chest palpation & inspection: normal inspection of the chest, normal palpation of entire chest wall and no tenderness Resp: Other: Percussion note is not perceptible, breath sounds are very diminished over the lower lobes. No audible wheezes or crepitations. Cardio: Palpation: PMI not normal (Not palpable) Rate: regular rate Rhythm: regular rhythm Heart sounds: no gallops and no murmurs GI: Palpation (GI): Soft to palpation, Tenderness to palpation present (GI), No hepatosplenomegaly present, Palpable mass present and Other GI palpation findings present (Abdomen is grossly obese and protuberant) Auscultation: normal bowel sounds Back/Spine/Pelvis: Other: Could not examine Thoracic/Lumbar Spine: thoracic and lumbar spine normal to inspection Skin: General skin exam: no rashes or lesions noted Neuro: General: patient oriented x3 and no focal motor deficits Cranial nerves: Yes CN's II-XII intact bilaterally Extrem: Other: Both lower extremities especially the legs below the knees are extremely obese, with extensive ulcerations on both sides, worse on the right side. Skin is dry the and inflamed General: Yes normal to inspection and Yes no calf tenderness Psych: Speech and movement: Normal speech and movement present Results Laboratory Findings CBC and BMP: 05/07/21 04:00 05/07/21 04:00 Abnormal lab findings: Abnormal Labs 05/02/21 05/02/21 05/03/21 23:58 23:58 00:11 WBC 12.6 H RBC 4.58 L Hgb 10.0 L Hct 32.4 L MCV 70.7 L MCH 21.8 L MCHC 30.9 L RDW 17.5 H Plt Count Absolute Nucleated RBC Neutrophils % (Manual) 78 H Band Neutrophils % 9 H Lymphocytes % (Manual) 9 L Monocytes % (Manual) Abs Neuts (Manual) 11.0 H Lymphocytes # (Manual) 1.1 L Nucleated RBCs ABG pCO2 at Pt Temp ABG pCO2 (Temp Corrct ABG pO2 (Temp Correct ABG HCO3 Sodium 130 L Chloride 90 L Carbon Dioxide 30 H BUN 23 H Random Glucose 127 H Lactic Acid 2.2 H* Calcium Total Bilirubin 1.3 H C-Reactive Protein 37.07 H 05/03/21 05/03/21 05/03/21 01:31 08:09 08:09 WBC RBC 4.50 L Hgb 9.8 L Hct 32.5 L MCV 72.2 L MCH 21.8 L MCHC 30.2 L RDW 17.6 H Plt Count 110 L D Absolute Nucleated RBC Neutrophils % (Manual) 77 H Band Neutrophils % 11 H Lymphocytes % (Manual) 5 L Monocytes % (Manual) Abs Neuts (Manual) Lymphocytes # (Manual) 0.5 L Nucleated RBCs 1 H ABG pCO2 at Pt Temp 46 H ABG pCO2 (Temp Corrct 50 H ABG pO2 (Temp Correct 114 H ABG HCO3 32 H Sodium 132 L Chloride Carbon Dioxide BUN 24 H Random Glucose Lactic Acid Calcium 7.9 L D Total Bilirubin C-Reactive Protein 05/04/21 05/04/21 05/05/21 04:03 04:03 05:48 WBC 10.9 H RBC 4.04 L 3.88 L Hgb 8.7 L 8.4 L Hct 28.5 L 27.2 L MCV 70.5 L 70.1 L MCH 21.5 L 21.6 L MCHC 30.5 L 30.9 L RDW 17.5 H 17.5 H Plt Count 110 L Absolute Nucleated RBC 0.020 H Neutrophils % (Manual) 74 H Band Neutrophils % 36 H 18 H Lymphocytes % (Manual) 2 L 6 L Monocytes % (Manual) 1 L Abs Neuts (Manual) 8.5 H 10.0 H Lymphocytes # (Manual) 0.2 L 0.7 L Nucleated RBCs ABG pCO2 at Pt Temp ABG pCO2 (Temp Corrct ABG pO2 (Temp Correct ABG HCO3 Sodium 132 L Chloride Carbon Dioxide BUN 35 H Random Glucose 127 H Lactic Acid Calcium 8.1 L Total Bilirubin C-Reactive Protein 05/05/21 05:48 WBC RBC Hgb Hct MCV MCH MCHC RDW Plt Count Absolute Nucleated RBC Neutrophils % (Manual) Band Neutrophils % Lymphocytes % (Manual) Monocytes % (Manual) Abs Neuts (Manual) Lymphocytes # (Manual) Nucleated RBCs ABG pCO2 at Pt Temp ABG pCO2 (Temp Corrct ABG pO2 (Temp Correct ABG HCO3 Sodium Chloride Carbon Dioxide BUN 24 H Random Glucose 163 H Lactic Acid Calcium Total Bilirubin C-Reactive Protein Microbiology: Microbiology 05/02/21 23:58 Blood - Venous Blood Culture - Preliminary Group g streptococcus 05/02/21 23:58 Blood - Venous Blood Culture - Preliminary Group g streptococcus 05/03/21 16:34 Blood - Venous Blood Culture - Preliminary No growth after 24 hours. 05/03/21 00:17 Urine Catheterized - Lane Catheter Urine Culture - Final No growth. Diagnostic Findings Chest x-ray: report reviewed and image reviewed CT scan - chest: report reviewed and image reviewed Assessment and Plan (1) Morbid obesity: Status: Acute Patient has obviously morbid obesity, which has not been managed. He needs to be in a weight management program, or under supervised care to lose weight. (2) NIKKI (obstructive sleep apnea): Status: Acute His body habitus, is definitely consistent with severe obstructive sleep apnea/hypoventilation syndrome. As per information provided he has not been evaluated in the sleep lab before. He tells me he has an appointment to have a sleep study at [facility] in mid May. I advised him that he should definitely follow through. Venous blood gas study shows his PCO2 46, and temp corrected 50. This does indicate mild hypoventilation syndrome. He is definitely hypoxic and is requiring oxygen supplementation, currently 5-6 L/minute I educated the patient about the need to be evaluated for sleep apnea and then start using CPAP or BiPAP on a regular basis. He understands, but a.m. not sure if he will be compliant. After discharge he will probably need oxygen supplementation at home anyway, And further decision about CPAP for BiPAP to be made after the sleep study is performed. (3) Venous insufficiency of both lower extremities: Status: Acute (4) Bilateral leg ulcer: Status: Acute (5) Restrictive lung disease: Status: Acute Because of his morbid obesity patient definitely is expected to have significant restrictive lung disease, and relative hypoventilation of the lower lobes. For this problem he should be started on incentive spirometry, every 2 hours while awake. He should be advised to do deep breathing exercises, even without the incentive spirometer. And of course he needs to join a weight management program to lose weight. I do not think he has active pneumonia , And I do not think he has any significant obstructive airway disorder. I will recommend that we can stop the steroids. It is okay to treat him with Loulou feldman, while in the hospital. But on discharge he should be just given albuterol HFA, to use 2 puffs Q 4-6 hours p.r.n.. Procedures Date of Service Date of Service: 05/05/21
[2021-05-05] MEDS: cefTRIAXone sodium 1 GM in 0.9 % Sodium Chloride 50 ML IV (11:22)
[2021-05-05] MEDS: Heparin Sodium,Porcine 5,000 UNIT/ML VIAL 5000 UNIT SUBCUT ×3 (11:22→23:32)
[2021-05-05] MEDS: 0.9 % Sodium Chloride Flush 3 ML SYRINGE IVFLUSH ×3 (11:24→19:54)
[2021-05-05 15:19] VITALS: BP 165/98; PULSE 110; RESP 20; TEMP 36.8; O2SAT 98
[2021-05-05] MEDS: Morphine Sulfate 2 MG/ML CARTRIDGE IVPUSH (15:53)
--- NOTE | 2021-05-05 17:03 | PC.NURSE ---
Dressings changed to b/l lower legs. Ulcers cleansed with normal saline. silver alginate applied to right leg ulcers, followed by 4x4's, kerlix wrap, and dougie wrap. large ulcer to right outer leg with small purulant drainage. Left foot ulcers with bloody purulant drainage. Silver alginate applied to left foot, 4x4's, kerlix wrap and dougie wrap. Premedicated with morphine. Patient did not tolerate dressing change well.
[2021-05-05] MEDS: Acetaminophen 325 MG TABLET 650 MG PO (19:50)
[2021-05-05 20:00] VITALS: BP 173/99; PULSE 108; RESP 20; TEMP 36.6; O2SAT 97
[2021-05-05] MEDS: oxyCODONE HCl Immed Release 5 MG TABLET PO (23:32)
[2021-05-05 23:53] VITALS: BP 162/96; PULSE 88; RESP 20; TEMP 36.1; O2SAT 94
[2021-05-06 01:55] VITALS: PULSE 97; RESP 29; O2SAT 98
--- NOTE | 2021-05-06 02:47 | PC.NURSE ---
Pt c/o bilat leg pain 10/10, prn tylenol given with minimal effect, Dr. Lucero was made aware and ordered Oxycodone 5 mg po, pt verbalized relief after and was able to go to sleep at intervals.
[2021-05-06 06:12] LABS: MANUAL DIFF FLAG NO
[2021-05-06 06:15] LABS: Basophils Percent Auto 0.1 % (0-2); Hematocrit 28.7 % (42.0-52.0); Hemoglobin 8.8 g/dl (14.0-18.0); Imm Gran Abs Auto 0.18 X10*3/uL (0.00-0.03); Imm Gran Pct Auto 1.7 % (0.0-0.4); Lymphocytes Percent Auto 9.7 % (20-40); Mean Corpuscular HGB Conc 30.7 g/dl (31.0-36.0); Mean Corpuscular Hemoglobin 22.1 pg (27.0-33.0); Mean Corpuscular Volume 72.1 fL (80.0-98.0); Mean Platelet Volume 11.5 fL (9.4-12.4); Monocytes Absolute Auto 0.5 X10*3/uL (0.1-1.2); Monocytes Percent Auto 4.7 % (2-11); Neutrophils Absolute Auto 8.9 x10*3/uL (2.0-8.3); Neutrophils Percent Auto 83.8 % (45-73); Platelet Count 227 X10*3/uL (160-400); Red Blood Count 3.98 X10*6/uL (4.60-5.80); Red Cell Distribution Width 17.7 % (11.0-16.0); White Blood Count 10.6 X10*3/uL (4.8-10.8)
[2021-05-06 06:51] LABS: Anion Gap 12 (12-20); Blood Urea Nitrogen 24 mg/dL (9-16); Calcium 8.8 mg/dL (8.4-10.2); Carbon Dioxide 31 mmol/L (22-29); Chloride 103 mmol/L (96-108); Creatinine Clr Calc Pharmacy 204.9; Estimated Glomerular Filt Rate > 60; Glucose Random 142 mg/dL (60-115); Potassium 3.7 mmol/L (3.3-5.1); Sodium 142 mmol/L (135-145)
[2021-05-06] MEDS: Heparin Sodium,Porcine 5,000 UNIT/ML VIAL 5000 UNIT SUBCUT ×3 (07:44→23:42)
[2021-05-06] MEDS: 0.9 % Sodium Chloride Flush 3 ML SYRINGE IVFLUSH ×3 (07:46→20:45)
[2021-05-06 08:00] VITALS: BP 172/95; PULSE 105; TEMP 37; O2SAT 97
[2021-05-06] MEDS: Acetaminophen 325 MG TABLET 650 MG PO ×3 (08:52→22:22)
[2021-05-06 10:16] VITALS: BP 172/95; PULSE 105
[2021-05-06] MEDS: amLODIPine Besylate 5 MG TABLET PO (10:16)
[2021-05-06] MEDS: cefTRIAXone sodium 1 GM in 0.9 % Sodium Chloride 50 ML IV (10:16)
--- NOTE | 2021-05-06 10:51 | MHC.CM.PN ---
CALL RECEIVED FROM SISTER, [place]. SHE WILL BE IN TODAY AND IS HOPING TO SPEAK WITH RN AND/OR HOSPITALIST/PA ABOUT NEXT LEVEL OF CARE.
--- NOTE | 2021-05-06 10:52 | P.PNIM_ITS ---
Subjective Subjective Date of Service: 05/06/21 Interval History: Seen and examined this morning Follow-up for respiratory failure, bacteremia used a different mask for cpap overnight which was more comfortable he denies any shortness of breath, no cough Review of Systems Review of Systems: Yes all other systems are reviewed and are negative Constitutional Constitutional: Denies chills and Denies fever(s) Cardiovascular Cardiovascular: Denies chest pain Respiratory Respiratory: Denies cough Gastrointestinal Gastrointestinal: Denies abdominal pain Physical Exam Verdana 4l Vital Signs: Verdana 4d Verdana 4d Vital Signs: Verdana 4d Verdana 4Bd Last Vital Signs Verdana 4d Press Tool Maker New 4d Press Tool Maker New 4d Temp 98.6 F 05/06/21 08:00 Press Tool Maker New 4d Pulse 105 H 05/06/21 10:16 Press Tool Maker NewNew 4d Resp 29 H 05/06/21 01:55 BP 172/95 H 05/06/21 10:16 Pulse Ox 97 05/06/21 08:00 Oxygen Flow Rate 14 05/02/21 23:45 BMI result Body Mass Index 49.2 Const: General: cooperative, comfortable, no acute distress, alert and awake Nutritional Appearance: obese Orientation/consciousness: patient oriented x3 HENMT: Head: Yes normocephalic and Yes atraumatic Eyes: Sclerae: sclerae normal Resp: Other: diminshed breath sounds b/l bases Effort & Inspection: normal respiratory effort and no respiratory distress Cardio: Rate: regular rate Rhythm: regular rhythm GI: Palpation (GI): Soft to palpation and nontender : Other: bradford draining clear yellow urine Neuro: General: patient oriented x3 Cranial nerves: Yes CN's II-XII intact bilaterally and Yes Bilaterally intact EOM present Extrem: Other: b/l legs wrapped in dougie bandages; chronic venous stasis changes Objective Data Active Medications Acetaminophen (Acetaminophen 325 Mg Tablet) 650 mg PO Q6H PRN PRN Reason: Pain, Mild (Pain Scale 1-3) Last Admin: 05/06/21 08:52 Dose: 650 mg Documented by: SABIHA Albuterol/Ipratropium (Albuterol/Iprat 2.5/0.5mg 3 Ml Ampul.Neb) 3 ml INHALE RQ6H PRN PRN Reason: Shortness of Breath Amlodipine Besylate (Amlodipine Besylate 5 Mg Tablet) 5 mg PO DAILY [facility]; Protocol Last Admin: 05/06/21 10:16 Dose: 5 mg Documented by: SABIHA Docusate Sodium (Docusate Sodium 100 Mg Capsule) 100 mg PO DAILY PRN PRN Reason: Constipation Heparin Sodium (Porcine) (Heparin Sodium,Porcine 5,000 Unit/Ml Vial) 5,000 unit SUBCUT Q8H [facility] Last Admin: 05/06/21 07:44 Dose: 5,000 unit Documented by: SABIHA Ceftriaxone Sodium 1 gm/ (Sodium Chloride) 50 mls @ 100 mls/hr IV Q24H [facility] Last Admin: 05/06/21 10:16 Dose: 100 mls/hr Documented by: SABIHA Ondansetron HCl (Ondansetron Hcl 4 Mg/2 Ml Vial) 4 mg IVPUSH Q8H PRN PRN Reason: Nausea and Vomiting Pharmacy Consult (Consult Rx Vancomycin Dosing) 1 each MISCELLANE DAILY PRN PRN Reason: Consult order Pharmacy Consult (Consult Rx Vancomycin Dosing) 1 each MISCELLANE DAILY PRN PRN Reason: Consult order Sodium Chloride (0.9 % Sodium Chloride Flush 3 Ml Syringe) 3 ml IVFLUSH QSHIFT [facility] Last Admin: 05/06/21 07:46 Dose: 3 ml Documented by: SABIHA Labs CBC & Chem 7: 05/06/21 05:41 05/06/21 05:41 Labs: Laboratory Results - last 24 hr 05/06/21 05/06/21 05:41 05:41 MCV 72.1 L MCH 22.1 L MCHC 30.7 L RDW 17.7 H Plt Count 227 MPV 11.5 Immature Gran % (Auto) 1.7 H Neut % (Auto) 83.8 H Lymph % (Auto) 9.7 L [place] % (Auto) 4.7 Eos % (Auto) 0.0 Baso % (Auto) 0.1 Lymph # (Auto) 1.0 L [place] # (Auto) 0.5 Eos # (Auto) 0.0 Baso # (Auto) 0.0 Abs Immat Gran (auto) 0.18 H Absolute Neuts (auto) 8.9 H Absolute Nucleated RBC 0.000 Nucleated RBC % (auto) 0.0 Anion Gap 12 Estim Creat Clear Calc 204.9 Estimated GFR > 60 Random Glucose 142 H Calcium 8.8 Microbiology Microbiology Results: Microbiology 05/02/21 23:58 Blood Culture - Preliminary Blood - Venous Group g streptococcus 05/02/21 23:58 Blood Culture - Final Blood - Venous Strep dysgalac (strep equism) 05/03/21 16:34 Blood Culture - Preliminary Blood - Venous No growth after 48 hours. Assessment and Plan (1) Restrictive lung disease: Status: Acute (2) NIKKI (obstructive sleep apnea): Status: Acute (3) Morbid obesity: Status: Acute (4) Venous insufficiency of both lower extremities: Status: Acute (5) Peripheral vascular disease: Status: Acute (6) Acute respiratory failure with hypoxia: Status: Acute Assessment and Plan: This is a 45-year-old male with past medical history of hypertension who presents to the hospital with chronic leg ulcers found to have concern for pneumonia, sepsis and respiratory failure sepsis secondary to leg wounds lactic acid 2.2, received 300cc/kg bolus in ED bacteremia 2/2 BCx from 05/02 growing group G strep (strep equism) repeat BCx from 05/03 negative to date will change abx from vanc/zosyn to ceftriaxone, with plan for 14 total abx ID consult pending bilateral leg ulcers likely related to previous trauma from spider bit and underlying peripheral vascular disease and venous stasis pt reports wounds have been present for two months or more since spider bite and was following with surgeon outpatient arterial Dopplers showing worsening of vascular disease seen by vascular surgery, no need for inpatient intervention, recommends outpatient follow up for venous insuffieciency workup continue local wound care acute hypoxic respiratory failure likely multifactorial r/t underlying obesity hypoventilation and probable NIKKI (he has outpatient [place] [facility] [place] CTA negative for PE. Covid, flu and RSV negative - continue supplemental o2, wean as tolerated, may need home o2 eval prior to d/c - continue cpap at night; overnight oximetry prior to d/c to qualify for o2 at night until able to receive cpap machine - seen by pulmonology, does not feel that he has any pneumonia, symptoms likely r/t above hypoventilation and NIKKI - recommend to d/c solu-medrol; d/c home with prn albuterol HTN on norvasc, HCTZ at baseline BP meds held initially due to sepsis. BP rebounding now, will resume Norvasc at 5 mg daily, can increase to home dose of 10 mg as bp allowes hold HCTZ thrombocytopenia likely r/t acute illness. improved follow CBC chronic microcytic anemia H/H within baseline follow CBC morbid obesity BMI 49.3 contributing to respiratory failure weight loss encouraged DVT prophylaxis: Heparin subQ attending: dr. prabhakar dispo- PT eval ordered Quality Stroke Does the patient have a stroke diagnosis?: No VTE Prior VTE?: No VTE Risk Level:: Medical - moderate - high VTE Device Contraindication: Treatment Not Indicated VTE Drug Contraindication: N/A - Med Ordered
[2021-05-06 11:35] VITALS: BP 156/98; PULSE 102; RESP 98; TEMP 36.5; O2SAT 100
--- NOTE | 2021-05-06 16:29 | PC.NURSE ---
Pt refused dressing change due to pain. Was medicated with Tylenol. Will re assess.
--- NOTE | 2021-05-06 18:28 | PC.NURSE ---
Dressing changed on pts left foot. Pre medicated with Tylenol prior. Pt tolerated dressing change well. Unable to change dressing on right foot as silver not available in stock at this time.
[2021-05-06 19:14] VITALS: BP 154/80; PULSE 102; RESP 20; TEMP 36.8; O2SAT 92
[2021-05-06] MEDS: hydrOXYzine HCL 50 MG TABLET PO (23:42)
[2021-05-06 23:52] VITALS: BP 168/95; PULSE 103; RESP 20; TEMP 36.9; O2SAT 95
[2021-05-07] VITALS (10 sets, daily range): BP systolic 118–176; BP diastolic 57–92; PULSE 61–129; RESP 17–24; TEMP 36.3–36.9; O2SAT 91–99
--- NOTE | 2021-05-07 02:10 | PC.NURSE ---
pt refused CPAP.states very anxious.a lot on his mind. notified.ordered atarax 50mg po given at 2345.Pt's sister came in to relax pt.brought in blanket from home.pt agreed to put on CPAP.resp called and put CPAP on pt.pt jolly it for 1 1/2 hrs then removed it.o2 on at 4L at present time.
--- NOTE | 2021-05-07 04:43 | PC.NURSE ---
pt had a burst of PATs 160's for 1 minute back down to 110.asymptomatic.resting in bed.
[2021-05-07 04:49] LABS: MANUAL DIFF FLAG NO
[2021-05-07 04:59] LABS: Basophils Percent Auto 0.1 % (0-2); Eosinophils Percent Auto 0.4 % (0-4); Hematocrit 31.1 % (42.0-52.0); Hemoglobin 9.4 g/dl (14.0-18.0); Imm Gran Abs Auto 0.21 X10*3/uL (0.00-0.03); Imm Gran Pct Auto 1.8 % (0.0-0.4); Lymphocytes Percent Auto 9.1 % (20-40); Mean Corpuscular HGB Conc 30.2 g/dl (31.0-36.0); Mean Corpuscular Hemoglobin 21.6 pg (27.0-33.0); Mean Corpuscular Volume 71.5 fL (80.0-98.0); Mean Platelet Volume 10.4 fL (9.4-12.4); Monocytes Absolute Auto 0.5 X10*3/uL (0.1-1.2); Monocytes Percent Auto 4.5 % (2-11); NRBC Pct Auto 0.6 /100WBC (0.0-0.2); Neutrophils Absolute Auto 9.6 x10*3/uL (2.0-8.3); Neutrophils Percent Auto 84.1 % (45-73); Platelet Count 258 X10*3/uL (160-400); Red Blood Count 4.35 X10*6/uL (4.60-5.80); Red Cell Distribution Width 17.9 % (11.0-16.0); White Blood Count 11.4 X10*3/uL (4.8-10.8)
[2021-05-07 05:05] LABS: Anion Gap 13 (12-20); Blood Urea Nitrogen 18 mg/dL (9-16); Calcium 8.6 mg/dL (8.4-10.2); Carbon Dioxide 31 mmol/L (22-29); Chloride 102 mmol/L (96-108); Creatinine Clr Calc Pharmacy 224.5; Estimated Glomerular Filt Rate > 60; Glucose Random 90 mg/dL (60-115); Potassium 3.8 mmol/L (3.3-5.1); Sodium 142 mmol/L (135-145)
[2021-05-07] MEDS: amLODIPine Besylate 5 MG TABLET PO (08:12)
[2021-05-07] MEDS: 0.9 % Sodium Chloride Flush 3 ML SYRINGE IVFLUSH ×3 (08:12→22:57)
[2021-05-07] MEDS: Heparin Sodium,Porcine 5,000 UNIT/ML VIAL 5000 UNIT SUBCUT ×3 (08:13→23:59)
--- NOTE | 2021-05-07 11:06 | HO.PM.IMPN ---
Subjective Subjective Date of Service: 05/07/21 Review of Systems Follow up PNA. leg ulcers No pain, laying in bed with oxygen on Denies chest pain, nausea, vomiting, diarrhea All other systems are reviewed and are negative Physical Exam Vital Signs: Vital Signs: Last Vital Signs Temp 98.2 F 05/07/21 07:50 Pulse 61 05/07/21 08:27 Resp 20 05/07/21 07:50 BP 147/69 H 05/07/21 08:27 Pulse Ox 91 L 05/07/21 08:27 Oxygen Flow Rate 14 05/02/21 23:45 BMI result Body Mass Index 49.2 Appearing in no acute distress lung sounds are clear to auscultation heart regular rate rhythm, clear S1, S2 positive bowel sounds, abdomen is soft, nontender, obese neuro patient is alert x3, no focal deficits Objective Data Active Medications Acetaminophen (Acetaminophen 325 Mg Tablet) 650 mg PO Q6H PRN PRN Reason: Pain, Mild (Pain Scale 1-3) Last Admin: 05/06/21 22:22 Dose: 650 mg Documented by: RO Albuterol/Ipratropium (Albuterol/Iprat 2.5/0.5mg 3 Ml Ampul.Neb) 3 ml INHALE RQ6H PRN PRN Reason: Shortness of Breath Amlodipine Besylate (Amlodipine Besylate 5 Mg Tablet) 5 mg PO DAILY [facility]; Protocol Last Admin: 05/07/21 08:12 Dose: 5 mg Documented by: SERJIO Docusate Sodium (Docusate Sodium 100 Mg Capsule) 100 mg PO DAILY PRN PRN Reason: Constipation Heparin Sodium (Porcine) (Heparin Sodium,Porcine 5,000 Unit/Ml Vial) 5,000 unit SUBCUT Q8H [facility] Last Admin: 05/07/21 08:13 Dose: 5,000 unit Documented by: SERJIO Ceftriaxone Sodium 1 gm/ (Sodium Chloride) 50 mls @ 100 mls/hr IV Q24H [facility] Last Infusion: 05/06/21 11:20 Dose: 0 mls/hr Documented by: SABIHA Ondansetron HCl (Ondansetron Hcl 4 Mg/2 Ml Vial) 4 mg IVPUSH Q8H PRN PRN Reason: Nausea and Vomiting Pharmacy Consult (Consult Rx Vancomycin Dosing) 1 each MISCELLANE DAILY PRN PRN Reason: Consult order Pharmacy Consult (Consult Rx Vancomycin Dosing) 1 each MISCELLANE DAILY PRN PRN Reason: Consult order Sodium Chloride (0.9 % Sodium Chloride Flush 3 Ml Syringe) 3 ml IVFLUSH QSHIFT [facility] Last Admin: 05/07/21 08:12 Dose: 3 ml Documented by: SERJIO Labs CBC & Chem 7: 05/07/21 04:00 05/07/21 04:00 Labs: Laboratory Results - last 24 hr 05/07/21 05/07/21 04:00 04:00 MCV 71.5 L MCH 21.6 L MCHC 30.2 L RDW 17.9 H Plt Count 258 MPV 10.4 Immature Gran % (Auto) 1.8 H Neut % (Auto) 84.1 H Lymph % (Auto) 9.1 L [place] % (Auto) 4.5 Eos % (Auto) 0.4 Baso % (Auto) 0.1 Lymph # (Auto) 1.0 L [place] # (Auto) 0.5 Eos # (Auto) 0.0 Baso # (Auto) 0.0 Abs Immat Gran (auto) 0.21 H Absolute Neuts (auto) 9.6 H Absolute Nucleated RBC 0.070 H Nucleated RBC % (auto) 0.6 H Anion Gap 13 Estim Creat Clear Calc 224.5 Estimated GFR > 60 Random Glucose 90 D Calcium 8.6 Microbiology Microbiology Results: Microbiology 05/02/21 23:58 Blood Culture - Preliminary Blood - Venous Group g streptococcus 05/02/21 23:58 Blood Culture - Final Blood - Venous Strep dysgalac (strep equism) Assessment and Plan (1) NIKKI (obstructive sleep apnea): Status: Acute (2) Morbid obesity: Status: Acute (3) Acute respiratory failure with hypoxia: Status: Acute (4) Bilateral leg ulcer: Status: Acute Assessment and Plan: This is a 45-year-old male with past medical history of hypertension who presents to the hospital with chronic leg ulcers found to have concern for pneumonia, sepsis and respiratory failure Acute hypoxic respiratory failure likely multifactorial r/t underlying obesity hypoventilation and probable NIKKI (he has outpatient appointment for sleep study at [facility] [place] in [place]) CTA negative for PE. Covid, flu and RSV negative Home oxygen eval and overnight oxygen eval Seen by pulm no steroids, home with prn albuterol sepsis. Resolved secondary to leg wounds lactic acid 2.2, received 300cc/kg bolus in ED bacteremia 2/2 BCx from 05/02 growing group G strep (strep equism) repeat BCx from 05/03 negative to date will change abx from vanc/zosyn to ceftriaxone, with plan for 14 total abx ID consult pending bilateral leg ulcers likely related to previous trauma from spider bit and underlying peripheral vascular disease and venous stasis pt reports wounds have been present for two months or more since spider bite and was following with surgeon outpatient arterial Dopplers showing worsening of vascular disease seen by vascular surgery, no need for inpatient intervention,, o/p follow up continue local wound care HTN on norvasc, HCTZ at baseline Norvasc at 5 mg daily, can increase to home dose of 10 mg as bp allows hold HCTZ thrombocytopenia likely r/t acute illness. improved follow CBC chronic microcytic anemia H/H within baseline follow CBC morbid obesity BMI 49.3 contributing to respiratory failure weight loss encouraged DVT prophylaxis: Heparin subQ attending: Dr. Caruso dispo- PT eval ordered Quality Stroke Does the patient have a stroke diagnosis?: No VTE Prior VTE?: No VTE Risk Level:: Medical - moderate - high VTE Device Contraindication: Treatment Not Indicated VTE Drug Contraindication: N/A - Med Ordered
--- NOTE | 2021-05-07 11:22 | MHC.CLN ---
NUTRITION CONSULT FOR BILATERAL LOWER EXTREMITIES. PATIENT WITH VENOUS/STASIS ULCERS BILATERAL FEET AND RIGHT LOWER LEG. NOT PRESSURE INJURIES. NO ADDITIONAL NUTRITION INTERVENTIONS.
[2021-05-07] MEDS: cefTRIAXone sodium 1 GM in 0.9 % Sodium Chloride 50 ML IV (12:50)
--- NOTE | 2021-05-07 14:44 | MHC.CM.PN ---
EMR REVIEWED, PER HOSPITALIST PT WILL HAVE HOME O2 EVAL, OVERNIGHT O2 EVAL AND ANTIC D/C TOMORROW 05/08/21, PER PULMONARY NO STEROIDS NEEDED AND PT WILL D/C ON PRN ALBUTEROL.
[2021-05-07] MEDS: Acetaminophen 325 MG TABLET 650 MG PO ×2 (16:52→22:56)
--- NOTE | 2021-05-07 23:37 | PC.RT ---
Placed pt on Noc Oximetry on 05/07 @ 2330 will return to retrieve device
[2021-05-08 03:59] VITALS: BP 113/63; PULSE 108; RESP 19; TEMP 36.4; O2SAT 95
[2021-05-08 07:42] VITALS: BP 138/71; PULSE 112; RESP 21; TEMP 36.4; O2SAT 100
[2021-05-08] MEDS: 0.9 % Sodium Chloride Flush 3 ML SYRINGE IVFLUSH (08:22)
[2021-05-08] MEDS: Heparin Sodium,Porcine 5,000 UNIT/ML VIAL 5000 UNIT SUBCUT (08:22)
[2021-05-08] MEDS: amLODIPine Besylate 5 MG TABLET PO (08:22)
--- NOTE | 2021-05-08 09:55 | P.DS_ITS ---
DS: Providers Provider Date of Service: 05/08/21 <Umm Daniels NP - Last Filed: 05/08/21 11:43> Date of admission: 05/03/21 06:06 <Umm Daniels NP - Last Filed: 05/08/21 11:43> Primary care physician: EROS Valdez <Umm Daniels NP - Last Filed: 05/08/21 11:43> Consults: 05/03/21 10:02 Consult to General Surgery Routine Consulting Provider: Domenic Higginbotham Reason for consultation: leg wounds Has provider been notified: No 05/03/21 14:10 Consult to Vascular Surgery Routine Consulting Provider: Joey Smith Reason for consultation: lower extremity wounds; arterial US showing vascular disease 05/04/21 12:25 Consult to Pulmonology Routine Consulting Provider: Michael Vázquez Reason for consultation: respiratory failure Has provider been notified: No 05/05/21 10:17 Consult to Infectious Diseases Routine Consulting Provider: Edilia Blake Reason for consultation: respiratory failure, leg wounds; strep bacteremia Has provider been notified: No <Umm Daniels NP - Last Filed: 05/08/21 11:43> Attending physician on discharge: Julio Caruso <Umm Daniels NP - Last Filed: 05/08/21 11:43> Discharging clinician: Umm Daniels <Umm Daniels NP - Last Filed: 05/08/21 11:43> DS: Diagnosis Discharge Diagnosis (1) Acute respiratory failure with hypoxia: Status: Acute <Umm Daniels NP - Last Filed: 05/08/21 11:43> (2) NIKKI (obstructive sleep apnea): Status: Acute <Umm Daniels NP - Last Filed: 05/08/21 11:43> (3) Bilateral leg ulcer: Status: Acute <Umm Daniels NP - Last Filed: 05/08/21 11:43> DS: Summary Hospital Course Hospital Course: HP as per admitting provider This is a 45-year-old male with past medical history significant for reported hypertension and NIKKI presents to the hospital with complaints of lower extremity ulcers.? Patient reports that he had spider bites in his lower extremities 2 months ago and have now developed into nonhealing ulcers.? Although they are in bilateral legs.? He reports that he went to wound care clinic but has been taking care of them at home with the help of his sister.? He reports his sister was no longer able to take care of him and felt that his wound needed better care and therefore he came to the ED.?He is also having shortness of breath, cough, no palpitations, no chest pain, no abdominal pain, no nausea or vomiting, no diarrhea constipation, no urinary symptoms and no lower extremity edema. On arrival to the ED vitals are significant for temp of 103.8?, heart rate of 136, who respiratory rate of 136, satting 92% on 15 L of non-rebreather.? Patient apparently was hypoxic but unclear how lobe was his oxygen. Labs are significant for WBC count of 12.6, hemoglobin of 10 [place], hematocrit of 32, pH of 7.42, bicarb of 30, BUN of 23 with a creatinine of 1.16 with a baseline around 0.92, lactic acid of 2.2, total bili of 4.3, COVID-19, RSV, influenza a and B negative.?CT of the chest is limited due to motion as well as suboptimal bolus but showed no central or segmental pulmonary embolus, shows scattered patchy opacities which may be infectious or inflammatory. X-rays of the foot bilaterally showed extensive soft tissue swelling of both feet, but evaluation was limited due to patient's positioning . Acute hypoxic respiratory failure likely multifactorial r/t underlying obesity hypoventilation and probable NIKKI (he has outpatient appointment for sleep study at [facility] [place] in [place]) CTA negative for PE. Covid, flu and RSV negative Seen by pulm no steroids, home with prn albuterol You will be on oxygen nighttime until you follow-up with sleep study for CPAP. sepsis. Resolved secondary to leg wounds lactic acid 2.2, received 300cc/kg bolus in ED bacteremia 2/2 BCx from 05/02 growing group G strep (strep equism) repeat BCx from 05/03 negative to date treated with from vancomycin/zosyn to ceftriaxone, ID rec 14 total days of augmentin bilateral leg ulcers likely related to previous trauma from spider bit and underlying peripheral vascular disease and venous stasis pt reports wounds have been present for two months or more since spider bite and was following with surgeon outpatient arterial Dopplers showing worsening of vascular disease seen by vascular surgery, no need for inpatient intervention,, o/p follow up continue local wound care, [facility]NA <Umm Daniels NP - Last Filed: 05/08/21 11:43> Time Spent with Patient Time attestation: Total time spent providing and/or coordinating discharge services: <Umm Daniels NP - Last Filed: 05/08/21 11:43> Discharge coordination time: Greater than 30 minutes <Umm Daniels NP - Last Filed: 05/08/21 11 :43> Quality: Stroke Does the patient have a stroke diagnosis?: No <Umm Daniels NP - Last Filed: 05/08/21 11:43> Physical Exam Vital Signs: Vital Signs: Last Vital Signs Temp 97.6 F 05/08/21 07:42 Pulse 112 H 05/08/21 07:42 Resp 21 H 05/08/21 07:42 BP 138/71 05/08/21 07:42 Pulse Ox 100 05/08/21 07:42 Oxygen Flow Rate 14 05/02/21 23:45 BMI result Body Mass Index 49.2 <Umm Daniels NP - Last Filed: 05/08/21 11:43> Appearing in no acute distress head is normocephalic atraumatic eyes pupils are PERRLA sclera is anicteric mouth throat mucous membranes are intact and moist neck is supple no lymphadenopathy, no JVD noted lung sounds are clear to auscultation heart regular rate rhythm, clear S1, S2 positive bowel sounds, abdomen is soft, nontender neuro patient is alert x3, no focal deficits Multiple venous ulcers to lower extremities <Umm Daniels NP - Last Filed: 05/08/21 11:43> DS: Data Data Completed and Pending Completed studies during hospitalization [Text1]: Procedures Transfusion of Nonautologous Red Blood Cells into Peripheral Vein, Percutaneous Approach (06/01/20) <Umm Daniels NP - Last Filed: 05/08/21 11:43> Labs on day of discharge: Preliminary micro results at discharge 05/03/21 16:34 Blood Culture - Preliminary Blood - Venous No growth after 48 hours. <Umm Daniels NP - Last Filed: 05/08/21 11:43> Discharge Plan Discharge Anticipated Discharge Date/Time: 05/08/21 09:49 <Umm Daniels NP - Last Filed: 05/08/21 11:43> Patient Disposition: Home Health Service <Umm Daniels NP - Last Filed: 05/08/21 11:43> Discharge Diagnosis: Acute hypoxic respiratory failure Bacteremia Bilateral leg ulcers Obstructive sleep apnea <Umm Daniels NP - Last Filed: 05/08/21 11:43> Acute hypoxic respiratory failure Bacteremia Bilateral leg ulcers Obstructive sleep apnea <Julio Caruso MD - Last Filed: 05/08/21 12:40> Referrals: Pamela LIN [Outside] - 1 Week Joaquina Schrader PA [Primary Care Provider] - 1 Week <Umm Daniels NP - Last Filed: 05/08/21 11:43> Discharge Medications: New amoxicillin-pot clavulanate [Augmentin] 875-125 mg tablet 1 tab PO BID Qty: 22 RF: 0 Continued amlodipine 10 mg tablet 1 tab PO DAILY RF: 0 gabapentin 300 mg capsule 1 cap PO TID PRN (Reason: neuropathic pain) RF: 0 hydrochlorothiazide 12.5 mg tablet 1 tab PO DAILY RF: 0 <Umm Daniels NP - Last Filed: 05/08/21 11:43> Discharge Orders: Discharge Order (Routine); Ordered 05/08/21 Ordered By: Umm Daniels <Umm Daniels NP - Last Filed: 05/08/21 11:43> Diet: advance to usual diet <Umm Daniels NP - Last Filed: 05/08/21 11:43> advance to usual diet <Julio Caruso MD - Last Filed: 05/08/21 12:40> Activity on Discharge: As tolerated <Umm Daniels NP - Last Filed: 05/08/21 11:43> As tolerated <Julio Caruso MD - Last Filed: 05/08/21 12:40> Stand Alone Forms: Patient Portal Discharge page <Umm Daniels NP - Last Filed: 05/08/21 11:43> Activity Restrictions/Additional Instructions: Wound care instructions: Cleanse wounds on right lower leg with wound cleanser or normal saline, apply Triad cream on edges of ulcers then apply s ilver alginate to wound bed of large ulcer cover with non woven gauze and roll gauze. Cleanse feet with wound cleanser, then apply Triad to wounds on bilateral toes cover with non woven gauze and roll gauze. Apply dougie wraps to bilateral legs-starting at toes to below knee to reduce edema. <Umm Daniels NP - Last Filed: 05/08/21 11:43> Care Plan Goals: complete healing of leg wounds <Umm Daniels NP - Last Filed: 05/08/21 11:43> Health Concerns: Acute hypoxic respiratory failure Bacteremia Bilateral leg ulcers Obstructive sleep apnea <Umm Daniels NP - Last Filed: 05/08/21 11:43> Plan of Treatment: Follow-up with primary care provider as needed See wound care orders Take antibiotics as prescribed You will be on oxygen at nighttime until your follow-up sleep study for CPAP. <Umm Daniels NP - Last Filed: 05/08/21 11:43> Assessment: see discharge summary Attending Attestation: I have personally seen and examined the patient independently (on the date of service as documented by NPP), reviewed the NPP history, exam and?MDM and agree with the assessment and plan as?written <Umm Daniels NP - Last Filed: 05/08/21 11:43>
--- NOTE | 2021-05-08 10:55 | W.PM.IDCN ---
History of Present Illness Data of Consult Service Date: 05/07/21 Requesting physician: Umm Daniels Primary Care Provider: EROS Valdez HPI Reason for consult: bacteremia He presents with worsening leg wounds. He has more swelling and pain. He has Group B strep 05/02. Review of Systems Review of Systems: Yes all other systems are reviewed and are negative [facility] Past Medical History Medical History (Updated 05/08/21 @ 11:00 by Edilia Blake MD) Allergies Bacteremia HTN (hypertension) Iron deficiency anemia Morbid obesity NIKKI (obstructive sleep apnea) Restrictive lung disease Sleep apnea Surgical History Surgical History No pertinent past surgical history Social History Social History Household Members: Family Housing: Apartment Do you presently have visiting nurse or other home services: No Alcohol intake: former Patient Tobacco Use Status: Never used Tobacco Second Hand Smoke Exposure: No Substance Use Type: Marijuana service: No Current occupational status: unemployed Meds Allergies Allergy/AdvReac Type Severity Reaction Status Date / Time No Known Allergies Allergy Verified 06/01/20 15:37 Active Medications: Current Medications Acetaminophen (Acetaminophen 325 Mg Tablet) 650 mg PO Q6H PRN PRN Reason: Pain, Mild (Pain Scale 1-3) Last Admin: 05/07/21 22:56 Dose: 650 mg Documented by: Al Hydroxide/Mg Hydroxide (Magnesium Hydrox/Alum Hydrox 30 Ml Oral.Susp) 30 ml PO Q4H PRN PRN Reason: stomach upset Albuterol/Ipratropium (Albuterol/Iprat 2.5/0.5mg 3 Ml Ampul.Neb) 3 ml INHALE RQ6H PRN PRN Reason: Shortness of Breath Amlodipine Besylate (Amlodipine Besylate 5 Mg Tablet) 5 mg PO DAILY CORNELIA; Protocol Last Admin: 05/08/21 08:22 Dose: 5 mg Documented by: Docusate Sodium (Docusate Sodium 100 Mg Capsule) 100 mg PO DAILY PRN PRN Reason: Constipation Heparin Sodium (Porcine) (Heparin Sodium,Porcine 5,000 Unit/Ml Vial) 5,000 unit SUBCUT Q8H CORNELIA Last Admin: 05/08/21 08:22 Dose: 5,000 unit Documented by: Ceftriaxone Sodium 1 gm/ (Sodium Chloride) 50 mls @ 100 mls/hr IV Q24H [facility] Last Infusion: 05/07/21 13:52 Dose: Infused Documented by: Ondansetron HCl (Ondansetron Hcl 4 Mg/2 Ml Vial) 4 mg IVPUSH Q8H PRN PRN Reason: Nausea and Vomiting Pharmacy Consult (Consult Rx Vancomycin Dosing) 1 each MISCELLANE DAILY PRN PRN Reason: Consult order Pharmacy Consult (Consult Rx Vancomycin Dosing) 1 each MISCELLANE DAILY PRN PRN Reason: Consult order Sodium Chloride (0.9 % Sodium Chloride Flush 3 Ml Syringe) 3 ml IVFLUSH QSHIFT [facility] Last Admin: 05/08/21 08:22 Dose: 3 ml Documented by: Home Medications Medication Instructions Recorded Confirmed Last Taken Type amlodipine 10 mg tablet 1 tab PO DAILY 05/03/21 05/03/21 05/02/21 History gabapentin 300 mg capsule 1 cap PO TID PRN 05/03/21 05/03/21 Unknown History hydrochlorothiazide 12.5 mg tablet 1 tab PO DAILY 05/03/21 05/03/21 05/02/21 History Physical Exam Vital Signs: Vital Signs: Last Vital Signs Temp 97.6 F 05/08/21 07:42 Pulse 112 H 05/08/21 07:42 Resp 21 H 05/08/21 07:42 BP 138/71 05/08/21 07:42 Pulse Ox 100 05/08/21 07:42 Oxygen Flow Rate 14 05/02/21 23:45 BMI result Body Mass Index 49.2 Const: General: cooperative Eyes: Pupils: Equal, round and reactive pupils present Resp: Effort & Inspection: normal respiratory effort Cardio: Rate: regular rate Rhythm: regular rhythm GI: Palpation (GI): Soft to palpation and nontender Neuro: Cranial nerves: Yes Equal, round and reactive pupils present Extrem: Other: wrapped lower extremities,mild redness Results Labs CBC & Chem 7: 05/07/21 04:00 05/07/21 04:00 Microbiology Microbiology Results: Microbiology 05/02/21 23:58 Blood - Venous Blood Culture - Final Strep dysgalac (strep equism) 05/02/21 23:58 Blood - Venous Blood Culture - Final Strep dysgalac (strep equism) 05/03/21 16:34 Blood - Venous Blood Culture - Preliminary No growth after 48 hours. 12/16/21 00:17 Urine Catheterized - Lane Catheter Urine Culture - Final No growth. Assessment and Plan (1) Peripheral vascular disease: Status: Acute (2) Bacteremia: Status: Acute He has bacteremia Group B strep from wounds Since no osteomyelitis seen on XRay can finish course with po Ceftin or Augmentin one month as no evidence endocarditis seen Alternative is four to six weeks IV
[2021-05-08 11:57] VITALS: BP 121/68; PULSE 90; RESP 16; TEMP 37; O2SAT 98
[2021-05-08] MEDS: Acetaminophen 325 MG TABLET 650 MG PO (12:01)
[2021-05-08] MEDS: Magnesium Hydrox/Alum Hydrox 30 ML ORAL.SUSP PO (12:01)
[2021-05-08] MEDS: cefTRIAXone sodium 1 GM in 0.9 % Sodium Chloride 50 ML IV (12:03)
--- NOTE | 2021-05-08 12:41 | MHC.CM.PN ---
Addendum entered by Faye Santo RN 05/08/21 16:19: PT ACCEPTED BY [facility] AND SOC WILL BE 05/10/21, PER PT REQUEST PT'S SISTER NOTIFIED AND ALSO GIVEN CONTACT NUMBER FOR [facility] PT WILL NEED HOME O2 AT [facility]. Original Note: PT MEDICALLY CLEARED TO D/C HOME W/SN FOR WOUND CARE AND NEW O2 AT [facility], CM STILL WORKING ON SECURING A [facility]NA, PT HAS 1ST WOUND CARE APPT ON 05/21/21 AT [facility] [place] AND SLEEP STUDY SCHEDULED FOR 06/12/21. PT'S SISTER FOR [place], CM HAS REQUESTED A SCRIPT FOR A WALKER FROM [facility].
--- NOTE | 2021-05-08 13:11 | PC.NURSE ---
Skin/wound assessment completed. Patient has a large venous ulcer to right lower leg with smaller ulcers on leg and bilateral feet. Triad applied to small ulcers on leg and bilateral feet and silver alginate applied to large ulcer wound bed covered with non woven gauzw and roll gauze. Raúl wrap applied to bilateral legs from toes to knee. No other skin issues noted at this time.
--- NOTE | 2021-05-08 16:28 | W.MHC.F2F ---
Service Date Service Date: 05/08/21 Encounter Date of encounter: 05/08/21 Reasons for Services Reason for [facility]: wound care (Wound care instructions: Cleanse wounds on right lower leg with wound cleanser or normal saline, apply Triad cream on edges of ulcers then apply silver alginate to wound bed of large ulcer cover with non woven gauze and roll gauze. Cleanse feet with wound cleanser, then apply Triad to wounds on bila) Reason for physical therapy: home safety and mobility Homebound: Leaving the home is medically contraindicated at this time without the asist of a device and/or another person due th the listed conditions above and below. Certification: Based on the above findings, I certify that this patient is confined to the home and needs intermittent [facility] care, physical therapy and/or speech therapy, or continues to need occupational therapy. The patient is under my care, and I have initiated the establishment of the plan of care. The patient will be followed by a physician who will periodically review the plan of care.
== END 2021-05-08 16:00 | disposition home health service (06) | DRG 720 ==
LOC: HO.ED 05-03 01:18 → HO.EDOVER 05-03 06:17 → HO.S3 05-04 10:40
PROVIDERS: Physician Assistant Medical; Admitting Provider Internal Medicine; Emergency Provider Emergency Medicine; PCP Physician Assistant Medical; Visit Provider Nurse Practitioner Acute Care
DX: A41.9 Sepsis, unspecified organism (principal); J96.01 Acute respiratory failure with hypoxia; E87.2 Acidosis; D69.6 Thrombocytopenia, unspecified; J18.9 Pneumonia, unspecified organism; E87.1 Hypo-osmolality and hyponatremia; E66.2 Morbid (severe) obesity with alveolar hypoventilation; I87.313 Chronic venous hypertension (idiopathic) with ulcer of bilateral lower extremity; I10 Essential (primary) hypertension; L97.929 Non-pressure chronic ulcer of unspecified part of left lower leg with unspecified severity; B95.1 Streptococcus, group B, as the cause of diseases classified elsewhere; I73.89 Other specified peripheral vascular diseases; D53.9 Nutritional anemia, unspecified; L97.919 Non-pressure chronic ulcer of unspecified part of right lower leg with unspecified severity; R65.20 Severe sepsis without septic shock; L03.115 Cellulitis of right lower limb; L03.116 Cellulitis of left lower limb; Z20.822 Contact with and (suspected) exposure to COVID-19; Z68.42 Body mass index [BMI] 45.0-49.9, adult; Z79.899 Other long term (current) drug therapy
CPT/HCPCS: 0241U; 36415; 71045; 71275; 73620; 80048; 80202; 82247; 82803; 83036; 83605; 83880; 85007; 85025; 85027; 86140; 87040; 87077; 87086; 87186; 87205; 87635; 93925; 94660; 96365; 96366; 96367; 97116; 97162; 99285; J0696; J2270; J2543; J2920; J3370; Q9967